=== PATIENT | male | born 1975 | race African-American/Black ===

== ENCOUNTER 2023-12-26 17:10 | Inpatient (IN) | payer MEDICAID, SELFPAY ==
[2023-12-26] VITALS (12 sets, daily range): BP systolic 90–170; BP diastolic 43–65; PULSE 95–134; RESP 14–27; TEMP 36.8–39.4; O2SAT 77–98; BMI 23.6
--- NOTE | ~2023-12-26 | XR_ITS ---
EXAMINATION: XR CHEST CLINICAL INFORMATION: Shortness of breath COMPARISON: None available. TECHNIQUE: Frontal view of the chest was obtained. FINDINGS: The cardiac silhouette does not appear enlarged. There are increased central bronchovascular markings and question more peripheral airspace disease or infiltrate silhouetting the right minor fissure probably in the right upper lobe. The lungs are otherwise clear. Probable small bilateral pleural effusions. No pneumothorax. Bony structures are unremarkable. XR/XR chest 1V IMPRESSION: Increased central bronchovascular markings and question right upper lobe airspace disease or infiltrate. Probable small bilateral pleural effusions. Differential would include atypical interstitial or viral pneumonia and mild CHF.
--- NOTE | ~2023-12-26 | CT_ITS ---
EXAMINATION: CTA CHEST PE STUDY CLINICAL INFORMATION: Reason for Exam hypoxia, tachycardia COMPARISON: No pertinent prior studies are available for comparison. TECHNIQUE: Prior to contrast administration, noncontrast localization images were obtained. After the administration of 50 mL of Omnipaque nonionic IV contrast, contiguous thin slice helical images were obtained through the thorax. Reformatted MIP images in the coronal and sagittal planes were obtained at the acquisition workstation. This CT examination was performed using dose optimization techniques as appropriate, variously including the following: *Automated exposure control *Adjustment of mA and/or kV according to patient size (this includes techniques or standardized protocols for targeted exams where dose is matched to indication/reason for exam; i.e. extremities or head) *Use of iterative reconstruction technique DLP: 367 mGy-cm. FINDINGS: The bolus timing on this study was acceptable for visualization of the pulmonary arterial tree. There are no intraluminal pulmonary arterial filling defects present to suggest central pulmonary embolism. Distal branch vessels are partially obscured by motion artifact. Dependent airspace changes more likely due to atelectasis. Background panlobular emphysematous change in the lung apices. No abnormal pulmonary nodules or masses are appreciated. No significant hilar or mediastinal adenopathy. Small bilateral pleural effusions. There is no evidence of pneumothorax. The heart is normal in size. No evidence of ventricular septal bowing or right heart strain. Great vessels are normal. Otherwise the mediastinum is unremarkable. There is no pericardial effusion or pericardial thickening. Limited evaluation of the upper abdominal viscera is unremarkable. CT/CT angio chest PE protocol IMPRESSION: 1. No evidence for central pulmonary emboli. 2. Dependent airspace changes more likely due to atelectasis. 3. VTE: Negative.
--- NOTE | 2023-12-26 17:19 | ECG_ITS ---
Test Reason : SEPTIC Blood Pressure : / mmHG Vent. Rate : 123 BPM Atrial Rate : 123 BPM P-R Int : 132 ms QRS Dur : 066 ms QT Int : 288 ms P-R-T Axes : 047 059 031 degrees QTc Int : 412 ms Sinus tachycardia Otherwise normal ECG No previous ECGs available Referred By: Generic ED Physician Electronically Signed By:Daniel Huddleston
--- NOTE | 2023-12-26 17:33 | ED_ITS ---
HPI - General Adult General Chief complaint: Fever Stated complaint: fever, diff breathing Time Seen by Provider: 12/26/23 17:33 Source: patient and EMS Mode of arrival: EMS History of Present Illness HPI narrative: 48-year-old male who presents via EMS from [facility] for shortness of breath/fever/cough and sore throat as well as headache for the past couple of days, EMS notes that patient was 77% on room air, patient reports last use of cocaine 1 week ago. Related Data Home Medications Medication Instructions Recorded Confirmed Colace 100 mg PO BID PRN Constipation 12/26/23 12/26/23 atorvastatin 20 mg PO BEDTIME 12/26/23 12/26/23 famotidine 20 mg PO DAILY 12/26/23 12/26/23 furosemide 20 mg PO DAILY 12/26/23 12/26/23 gabapentin 300 mg PO TID 12/26/23 12/26/23 hydroxyzine pamoate 50 mg PO TID PRN Anxiety 12/26/23 12/26/23 insulin glargine 37 units subcut BEDTIME 12/26/23 12/26/23 insulin lispro See Protocol subcut QIDACHS 12/26/23 12/26/23 melatonin 6 mg PO BEDTIME 12/26/23 12/26/23 nicotine (polacrilex) 2 mg PO Q2H PRN Nicotine Cravings 12/26/23 12/26/23 olanzapine 10 mg PO BEDTIME 12/26/23 12/26/23 olanzapine 10 mg PO DAILY 12/26/23 12/26/23 ondansetron 4 mg PO Q6H PRN Nausea And Vomiting 12/26/23 12/26/23 sertraline 50 mg PO DAILY 12/26/23 12/26/23 trazodone 100 mg PO BEDTIME PRN Insomnia 12/26/23 12/26/23 Allergies Allergy/AdvReac Type Severity Reaction Status Date / Time shellfish derived Allergy Unknown Verified 12/26/23 18:25 Review of Systems 2 Review of Systems: Pertinent positives and negatives as stated in HPI PMFSH Past Medical History Source: nursing notes reviewed Medical History Severe major depression with psychotic features H/O insulin dependent diabetes mellitus Social History Social History Smoked in Last 30 Days: No Use of substances other than those prescribed or required for medical reasons: Yes Substance Use Type: IV Drugs Last Used Substance: Weeks (ago) Advance Directives: No Advance Directives Information Provided: No Physical Exam ED Vital Signs: Vital Signs - 24 hr 12/26/23 17:22 12/26/23 18:44 12/26/23 19:02 Temperature 102.9 F H 102.1 F H Pulse Rate 126 H 120 H 114 H Respiratory Rate 24 H 18 27 H Blood Pressure 136/65 94/46 L 90/46 L Pulse Oximetry 95 96 Oxygen Delivery Method Nasal Cannula Nasal Cannula Oxygen Flow Rate 5 12/26/23 19:11 12/26/23 19:27 12/26/23 19:42 Temperature 101.8 F H Pulse Rate 114 H 109 H 106 H Respiratory Rate 17 16 25 H Blood Pressure 96/47 L 93/43 L 95/46 L Pulse Oximetry 96 94 94 Oxygen Delivery Method Nasal Cannula Room Air Oxymask Oxygen Flow Rate 5 12/26/23 20:40 12/26/23 20:43 12/26/23 21:03 Temperature 98.8 F Pulse Rate 101 H 104 H 99 Respiratory Rate 14 14 19 Blood Pressure 92/45 L 96/47 L 107/56 L Pulse Oximetry 98 98 96 Oxygen Delivery Method Oxymask Oxymask Oxygen Flow Rate 5 5 5 BMI result Body Mass Index 23.6 VITAL SIGNS: Reviewed. GENERAL: Well developed, well nourished, in no acute distress. HEAD: Normocephalic/atraumatic EYES: PERRLA, EOMI EARS: Ext canals without abnormality, TMs non-bulging and non-erythematous NOSE: Nares patent bilateral OROPHARYNX: no oral lesions noted, posterior pharynx clear and non-erythematous without noted tonsillar enlargement/erythema/exudates NECK: Supple, no adenopathy LUNGS: Good inspiratory effort, no expiratory wheeze/crackles. SpO2<95> on 5 L via nasal cannula CARDIOVASCULAR: Regular rate and rhythm without noted murmurs, no JVD bilateral lower extremity 1+ pitting edema to feet/ankles ABDOMEN: Soft, non-tender, non-distended with bowel sounds. MUSCULOSKELETAL: No tenderness, deformities, or effusions noted on gross inspection. EXTREMITIES: No cyanosis, clubbing or edema. SKIN: Inspection of the skin reveals no rashes, tactile fever NEUROLOGIC: Alert and oriented x 4. Strength and sensation to light touch were grossly intact x 4. Medications Administered Discontinued Medications Generic Name Dose Route Start Last Admin Trade Name Rosey PRN Reason Stop Dose Admin Acetaminophen 975 mg 12/26/23 17:33 12/26/23 17:43 Acetaminophen 325 Mg Tablet PO 12/26/23 17:34 975 mg ONCE ONE Administration Furosemide 40 mg 12/26/23 20:57 12/26/23 21:05 Furosemide 40 Mg/4 Ml Vial IVPUSH 12/26/23 20:58 40 mg ONCE ONE Administration Protocol Piperacillin Sod/Tazobactam 50 mls @ 100 mls/hr 12/26/23 18:39 12/26/23 19:41 Sod 3.375 gm/ Sodium Chloride IV 12/26/23 19:08 Infused ONCE ONE Infusion Sodium Chloride 1,000 mls @ 999 mls/hr 12/26/23 17:35 12/26/23 18:35 Ns IV 12/26/23 18:35 Infused .Q1H1M LOWELL Infusion Sodium Chloride 1,000 mls @ 999 mls/hr 12/26/23 19:00 12/26/23 20:44 Ns IV 12/26/23 20:00 Infused .Q1H1M LOWELL Infusion Ibuprofen 400 mg 12/26/23 17:45 12/26/23 17:56 Ibuprofen 400 Mg Tablet PO 12/26/23 17:46 400 mg ONCE ONE Administration Iohexol 65 ml 12/26/23 19:19 12/26/23 19:20 Iohexol 350 Mg/Ml 100 Ml Infus..Btl IV 12/26/23 19:20 65 ml ONCE ONE Administration Midodrine 10 mg 12/26/23 20:57 12/26/23 21:05 Midodrine Hcl 10 Mg Tablet PO 12/26/23 20:58 10 mg ONCE ONE Administration Medical Decision Making Medical Decision Making [facility] Narrative: 1733: Sepsis alert, DDX: Viral illness, pneumonia, UTI, no clinical suspicion for intra-abdominal or extremity infection 1754: Lactic acid 3.5, IV fluids, antibiotics, antipyretics, supplemental oxygen I reviewed all investigations and hematologic indices are significant for leukocytosis, patient has normocytic anemia with no clinical or historical evidence of bleeding and there is no thrombocytopenia. VBG does not demonstrate respiratory acidosis and there is no evidence of hypercapnia. Chemistry indices do not demonstrate an CIARRA and there is no electrolyte derangement. Patient has a lactic acidosis that when trended shows improvement after receiving fluids, BNP noted to be 772 so stopped administering any further IV fluids. UDS is negative and viral testing is negative for COVID-19/influenza. Patient remained persistently tachycardic and hypoxic with soft blood pressure and so proceeded with CT angio for PE protocol which was negative for VTE, both CT scan and chest x-ray significant for CHF and on CT scan there is demonstrated pneumonia. Patient received midodrine 10 mg as well as 40 mg of Lasix, case discussed with inpatient hospitalist who accepts admission. Differential Diagnosis Differential Diagnoses: The differential diagnosis associated with the presentation includes Please see the discussion above Admission/Observation Consideration of admission/observation: Escalation of care including admission/observation considered Please see the discussion above Consult Healthcare Provider Management of the patient was discussed with: Hospitalist Please see the discussion above Lab Data MDM Lab Attestation statement: I reviewed the patient's lab results. Please see the discussion above 12/26/23 17:28 12/26/23 17:28 Labs: Lab Results 12/26/23 12/26/23 12/26/23 Range/Units 17:28 19:46 20:36 WBC 14.5 H (4.8-10.8) X10*3/uL RBC 2.92 L (4.60-5.80) X10*6/uL Hgb 8.5 L (14.0-18.0) g/dl Hct 25.6 L (42.0-52.0) % MCV 87.7 (80.0-98.0) fL MCH 29.1 (27.0-33.0) pg MCHC 33.2 (31.0-36.0) g/dl RDW 16.0 (11.0-16.0) % Plt Count 394 (160-400) X10*3/uL MPV 8.4 L (9.4-12.4) fL Immature Gran % (Auto) 0.8 H (0.0-0.4) % Neut % (Auto) 68.2 (45-73) % Lymph % (Auto) 19.4 L (20-40) % Chambers % (Auto) 10.5 (2-11) % Eos % (Auto) 0.8 (0-4) % Baso % (Auto) 0.3 (0-2) % Lymph # (Auto) 2.8 (1.2-4.9) X10*3/uL Chambers # (Auto) 1.5 H (0.1-1.2) X10*3/uL Eos # (Auto) 0.1 (0.0-0.4) X10*3/uL Baso # (Auto) 0.1 (0.0-0.2) X10*3/uL Abs Immat Gran (auto) 0.11 H (0.00-0.03) X10*3/uL Absolute Neuts (auto) 9.9 H (2.0-8.3) x10*3/uL Absolute Nucleated RBC 0.070 H (0.0-0.012) X10*3/uL Nucleated RBC % (auto) 0.5 H (0.0-0.2) /100WBC Smear Tech's Comments VERIFIED VBG pH (7.32-7.43) VBG pCO2 mmHg VBG pO2 mmHg VBG HCO3 (22-26) mmol/L VBG O2 Saturation % VBG Base Excess mmol/L Sodium 138 (135-145) mmol/L Potassium 4.2 (3.3-5.1) mmol/L Chloride 100 (96-108) mmol/L Carbon Dioxide 28 (22-29) mmol/L Anion Gap 14 (12-20) BUN 15 (9-16) mg/dL Creatinine 0.88 (0.5-1.4) mg/dL Estim Creat Clear Calc 98.2 Estimated GFR > 60 POC Glucose 180 H (60-115) mg/dL Random Glucose 234 H (60-115) mg/dL Lactic Acid 3.5 H* (0.5-2.0) mmol/L Lactic Acid F/U @ 2Hr 2.4 H* (0.5-2.0) mmol/L Calcium 8.6 (8.4-10.2) mg/dL Total Bilirubin 0.2 (0.0-1.0) mg/dL AST 44 H (5-37) U/L ALT 37 (0-40) U/L Alkaline Phosphatase 142 H (39-117) U/L B-Natriuretic Peptide 772 H (<100) pg/mL Total Protein 6.6 (6.5-8.0) g/dL Albumin 2.8 L (3.5-5.0) g/dL Beta-Hydroxybutyrate 0.12 (0.02-0.27) mmol/L Urine Color Yellow Urine Appearance Clear Urine pH 7.5 (5.0-9.0) Ur Specific South Range >= 1.030 H (1.005-1.025) Urine Protein 100 (2+) H (Neg-Trace) mg/dL Urine Glucose (UA) 500 H (Negative) mg/dL Urine Ketones Trace (Negative) mg/dL Urine Blood Negative (Negative) Urine Nitrite Negative (Negative) Ur Leukocyte Esterase Negative (Negative) Urine RBC 0-2 (0-2) /HPF Urine WBC 6-10 H (0-5) /HPF Ur Squamous Epith Cells 0-2 (0-2) /HPF Urine Bacteria None Seen (None Seen) Hyaline Casts 0-2 (0-2) /LPF Urine Opiates Screen Not Detected (Not Detect) Urine Fentanyl Screen Not Detected (Not Detect) Ur Barbiturates Screen Not Detected (Not Detect) Ur Phencyclidine Scrn Not Detected (Not Detect) Ur Amphetamines Screen Not Detected (Not Detect) U Benzodiazepines Scrn Not Detected (Not Detect) Urine Cocaine Screen Not Detected (Not Detect) U Marijuana (THC) Screen Not Detected (Not Detect) COVID-19 (DEMI) Negative (Negative) COVID-19 Clin Com See Note Influenza Type A (LEONEL) Negative (Negative) Influenza Type B (LEONEL) Negative (Negative) Influenza A & B Note See Note 12/26/23 Range/Units 21:09 WBC (4.8-10.8) X10*3/uL RBC (4.60-5.80) X10*6/uL Hgb (14.0-18.0) g/dl Hct (42.0-52.0) % MCV (80.0-98.0) fL MCH (27.0-33.0) pg MCHC (31.0-36.0) g/dl RDW (11.0-16.0) % Plt Count (160-400) X10*3/uL MPV (9.4-12.4) fL Immature Gran % (Auto) (0.0-0.4) % Neut % (Auto) (45-73) % Lymph % (Auto) (20-40) % Chambers % (Auto) (2-11) % Eos % (Auto) (0-4) % Baso % (Auto) (0-2) % Lymph # (Auto) (1.2-4.9) X10*3/uL Chambers # (Auto) (0.1-1.2) X10*3/uL Eos # (Auto) (0.0-0.4) X10*3/uL Baso # (Auto) (0.0-0.2) X10*3/uL Abs Immat Gran (auto) (0.00-0.03) X10*3/uL Absolute Neuts (auto) (2.0-8.3) x10*3/uL Absolute Nucleated RBC (0.0-0.012) X10*3/uL Nucleated RBC % (auto) (0.0-0.2) /100WBC Smear Tech's Comments VBG pH 7.50 H (7.32-7.43) VBG pCO2 40 mmHg VBG pO2 149 mmHg VBG HCO3 31 H (22-26) mmol/L VBG O2 Saturation 100.0 % VBG Base Excess 7.8 mmol/L Sodium (135-145) mmol/L Potassium (3.3-5.1) mmol/L Chloride (96-108) mmol/L Carbon Dioxide (22-29) mmol/L Anion Gap (12-20) BUN (9-16) mg/dL Creatinine (0.5-1.4) mg/dL Estim Creat Clear Calc Estimated GFR POC Glucose (60-115) mg/dL Random Glucose (60-115) mg/dL Lactic Acid (0.5-2.0) mmol/L Lactic Acid F/U @ 2Hr (0.5-2.0) mmol/L Calcium (8.4-10.2) mg/dL Total Bilirubin (0.0-1.0) mg/dL AST (5-37) U/L ALT (0-40) U/L Alkaline Phosphatase (39-117) U/L B-Natriuretic Peptide (<100) pg/mL Total Protein (6.5-8.0) g/dL Albumin (3.5-5.0) g/dL Beta-Hydroxybutyrate (0.02-0.27) mmol/L Urine Color Urine Appearance Urine pH (5.0-9.0) Ur Specific South Range (1.005-1.025) Urine Protein (Neg-Trace) mg/dL Urine Glucose (UA) (Negative) mg/dL Urine Ketones (Negative) mg/dL Urine Blood (Negative) Urine Nitrite (Negative) Ur Leukocyte Esterase (Negative) Urine RBC (0-2) /HPF Urine WBC (0-5) /HPF Ur Squamous Epith Cells (0-2) /HPF Urine Bacteria (None Seen) Hyaline Casts (0-2) /LPF Urine Opiates Screen (Not Detect) Urine Fentanyl Screen (Not Detect) Ur Barbiturates Screen (Not Detect) Ur Phencyclidine Scrn (Not Detect) Ur Amphetamines Screen (Not Detect) U Benzodiazepines Scrn (Not Detect) Urine Cocaine Screen (Not Detect) U Marijuana (THC) Screen (Not Detect) COVID-19 (DEMI) (Negative) COVID-19 Clin Com Influenza Type A (LEONEL) (Negative) Influenza Type B (LEONEL) (Negative) Influenza A & B Note Independent Interpretation I performed an independent interpretation of an: EKG Interpretation: Sinus tachycardia, HR-123, no STEMI, KS/QRS/QTC is within normal limits. Radiology Impression Discussion of test interpretation with radiology: I have reviewed the radiologist's reading. Radiologist Impression: Please see the discussion above Chronic Conditions Patient?s care impacted by: Diabetes and Other Suicidal ideation, CHF Critical Care Time Critical Care Time Critical Care Time: Yes Total Critical Care Time: 90 Attestation: I personally attest to this time spent taking care of the patient. Discharge Plan Discharge Clinical Impression: CHF exacerbation, Acute hypoxic respiratory failure, Pneumonia, Bilateral pleural effusion Patient Disposition: Admitted As Inpatient Prescriptions: No Action atorvastatin 20 mg 20 mg PO BEDTIME famotidine 20 mg 20 mg PO DAILY furosemide 20 mg 20 mg PO DAILY gabapentin 300 mg 300 mg PO TID insulin glargine 37 unit 37 units subcut BEDTIME insulin lispro 100 units/ml auto-injector See Protocol subcut QIDACHS Protocol: Insulin Correction Scale Less than or equal to 110 ---- Give (units): 0 111 to 150 Give (units): 0 151 to 200 Give (units): 2 201 to 250 Give (units): 4 251 to 300 Give (units): 6 301 to 350 Give (units): 8 Greater than 350 Give (units): 10 Call MD if Blood Glucose > : 350 olanzapine 10 mg tablet 10 mg PO DAILY olanzapine 10 mg tablet 10 mg PO BEDTIME sertraline 50 mg tablet 50 mg PO DAILY Colace 100 mg capsule 100 mg PO BID PRN (Reason: Constipation) hydroxyzine pamoate 50 mg capsule 50 mg PO TID PRN (Reason: Anxiety) melatonin 6 mg tablet 6 mg PO BEDTIME nicotine (polacrilex) 2 mg gum 2 mg PO Q2H PRN (Reason: Nicotine Cravings) ondansetron 4 mg tablet 4 mg PO Q6H PRN (Reason: Nausea And Vomiting) trazodone 100 mg tablet 100 mg PO BEDTIME PRN (Reason: Insomnia)
[2023-12-26 17:34] LABS: Basophils Absolute Auto 0.1 X10*3/uL (0.0-0.2); Basophils Percent Auto 0.3 % (0-2); Eosinophils Absolute Auto 0.1 X10*3/uL (0.0-0.4); Eosinophils Percent Auto 0.8 % (0-4); Hematocrit 25.6 % (42.0-52.0); Hemoglobin 8.5 g/dl (14.0-18.0); Imm Gran Abs Auto 0.11 X10*3/uL (0.00-0.03); Imm Gran Pct Auto 0.8 % (0.0-0.4); Lymphocytes Absolute Auto 2.8 X10*3/uL (1.2-4.9); Lymphocytes Percent Auto 19.4 % (20-40); MANUAL DIFF FLAG SCAN; Mean Corpuscular HGB Conc 33.2 g/dl (31.0-36.0); Mean Corpuscular Hemoglobin 29.1 pg (27.0-33.0); Mean Corpuscular Volume 87.7 fL (80.0-98.0); Mean Platelet Volume 8.4 fL (9.4-12.4); Monocytes Absolute Auto 1.5 X10*3/uL (0.1-1.2); Monocytes Percent Auto 10.5 % (2-11); NRBC Pct Auto 0.5 /100WBC (0.0-0.2); Neutrophils Absolute Auto 9.9 x10*3/uL (2.0-8.3); Neutrophils Percent Auto 68.2 % (45-73); Platelet Count 394 X10*3/uL (160-400); Red Blood Count 2.92 X10*6/uL (4.60-5.80); SCAN SMEAR FLAG 1; White Blood Count 14.5 X10*3/uL (4.8-10.8)
[2023-12-26] MEDS: 0.9 % Sodium Chloride 1,000 ML 999 ML IV ×2 (17:35→19:35)
[2023-12-26] MEDS: Acetaminophen 325 MG TABLET 975 MG PO (17:43)
[2023-12-26 17:48] LABS: Alanine Aminotransferase 37 U/L (0-40); Albumin Level 2.8 g/dL (3.5-5.0); Alkaline Phosphatase 142 U/L (39-117); Anion Gap 14 (12-20); Aspartate Amino Transferase 44 U/L (5-37); Bilirubin Total 0.2 mg/dL (0.0-1.0); Blood Urea Nitrogen 15 mg/dL (9-16); Calcium 8.6 mg/dL (8.4-10.2); Carbon Dioxide 28 mmol/L (22-29); Chloride 100 mmol/L (96-108); Creatinine Clr Calc Pharmacy 98.2; Estimated Glomerular Filt Rate > 60; Glucose Random 234 mg/dL (60-115); Potassium 4.2 mmol/L (3.3-5.1); Sodium 138 mmol/L (135-145); Total Protein 6.6 g/dL (6.5-8.0)
[2023-12-26 17:54] LABS: Lactic Acid 3.5 mmol/L (0.5-2.0)
[2023-12-26] MEDS: Ibuprofen 400 MG TABLET PO (17:56)
[2023-12-26 18:04] LABS: SLIDE REVIEW VERIFIED
[2023-12-26 18:07] LABS: IDNOW Serial# 152EDE1D; Influenza A Negative (Negative); Influenza B2 Negative (Negative)
[2023-12-26 18:08] LABS: COVID-19 Test Negative (Negative); IDNOW Serial# 08D9AD1C
[2023-12-26] MEDS: Piperacillin Sodium/Tazobactam 3.375 GM in 0.9 % Sodium Chloride 50 ML IV (18:47)
--- NOTE | 2023-12-26 19:00 | PC.NURSE ---
ARRIVES FROM [facility] ON SEC 12B AND 10B, HAS BEEN THERE FOR 1 WK FOR SI, MAJOR DEPRESSIVE EPISODE AND LISY USE. PT HYPOXIC WITH EMS AT 77%, UNABLE TO MAINTAIN SPO2>93% WITHOUT 5L SUPPLEMENTAL O2. PT ABLE TO SPEAK IN CLEAR FULL SENTENCES, DENIES CP. PT FEBRILE, TACHYCARDIC, TACHYPNEIC, SEPSIS PROTOCOL INITIATED ON ARRIVAL, #20 IN RAC. HAS NOT YET PROVIDED URINE SPECIMEN, BLADDER SCAN TO BE COMPLETED. BPS HAVE BECOME SOFT, AWARE. SITTER AT BEDSIDE PER FACILITY PROTOCOL.
[2023-12-26 19:20] LABS: Beta-Hydroxybutyrate 0.12 mmol/L (0.02-0.27)
[2023-12-26] MEDS: iohexoL 350 MG/ML 100 ML INFUS..BTL 65 ML IV (19:20)
[2023-12-26 19:32] LABS: Reflex Lactate? Lactic Acid Added
--- NOTE | 2023-12-26 19:43 | PC.NURSE ---
Dr. Holder aware of vitals & temp. ivf infusing. pressure bag on fluids and oxy mask on 5L per Dr. Holder. sitter at bedside. almita baum obtaining 2nd lactic now. ua sent to lab.
[2023-12-26 19:56] LABS: Appearance Urine Clear; Color Urine Yellow; Glucose Urine UA 500 mg/dL (Negative); Leukocyte Esterase Urine Negative (Negative); Nitrite Urine Negative (Negative); PH 7.5 (5.0-9.0); Specific Gravity - Urine >= 1.030 (1.005-1.025); UMIC TRIGGER UACC YES; Urine Blood Negative (Negative); Urine Ketones Trace mg/dL (Negative); Urine Protein 100 (2+) mg/dL (Neg-Trace)
[2023-12-26 19:58] LABS: Bacteria Urine None Seen (None Seen); Hyaline Casts Urine 0-2 /LPF (0-2); RBC Urine 0-2 /HPF (0-2); Squamous Epithelial Cell Urine 0-2 /HPF (0-2); UACC Culture Trigger YES
[2023-12-26 20:01] LABS: Amphetamine Screen Urine Not Detected (Not Detect); Barbiturates, Urine Not Detected (Not Detect); Benzodiazepines Screen Urine Not Detected (Not Detect); Cannabinoid Screen Urine Not Detected (Not Detect); Cocaine Screen Urine Not Detected (Not Detect); Fentanyl, urine Not Detected (Not Detect); Opiate Screen Urine Not Detected (Not Detect); Phencyclidine Screen Urine Not Detected (Not Detect)
[2023-12-26 20:10] LABS: ~Lactic Acid-LAB USE ONLY 2.4 mmol/L (0.5-2.0)
[2023-12-26 20:13] LABS: B Type Natriuretic Peptide 772 pg/mL (<100)
[2023-12-26 20:39] LABS: Glucose, Whole Blood 180 mg/dL (60-115)
--- NOTE | 2023-12-26 20:44 | PC.NURSE ---
pt appears lethargic and diaphoretic. poc 180. temp 99.7F. 99/48 BP. aroused to shaking axox4 now. pt reports feeling extremely tired and dizzy. IVF stopped after [address] Holder. pt repositioned in trendelenberg position. vitals as documented. Dr. Holder aware no new orders at this time.
--- NOTE | 2023-12-26 21:03 | PC.NURSE ---
per MD Holder OK to give 40mg lasix iv with soft BPs. most recent BP 107/56. administering 10mg midodrine po as well. continuos monitoring of BP in place. plan of care ongoing
[2023-12-26] MEDS: Furosemide 40 MG/4 ML VIAL IVPUSH (21:05)
[2023-12-26] MEDS: Midodrine HCl 10 MG TABLET PO (21:05)
[2023-12-26 21:14] LABS: Venous Blood Gas Refer to POC result
[2023-12-26 21:15] LABS: VBG Base Excess 7.8 mmol/L; VBG HCO3 31 mmol/L (22-26); VBG pCO2 40 mmHg; VBG pO2 149 mmHg
[2023-12-26 21:51] LABS: Reflex Lactate? 2 Y
--- NOTE | 2023-12-26 22:19 | PM.IMHP ---
History of Present Illness Date of Service: 12/26/23 Chief Complaint: Cough, fever This is a 48-year-old male with pertinent history of mood disorder, congestive heart failure unspecified EF, insulin-dependent diabetes mellitus with neuropathy, mixed hyperlipidemia who presents to the emergency department from [facility] for evaluation of fever, productive cough and dyspnea. Patient was residing at [facility] for suicidal ideation. Patient does not know when his symptoms started but states he has been having productive cough with yellowish sputum production. Also has been having associated fevers and chills. Admits dyspnea and endorses orthopnea. No chest discomfort, palpitations, abdominal pain, changes in urinary or bowel habits. He was found to be hypoxemic as per EMS and placed on supplemental oxygen. In the emergency department, patient was found to be septic and requiring 5 L supplemental oxygen. BNP found to be elevated Review of Systems Constitutional: Constitutional: Reports chills, Reports fatigue, Reports fever(s) and Reports lethargy Cardiovascular: Cardiovascular: Reports dyspnea on exertion and Reports orthopnea Respiratory: Respiratory: Reports dyspnea on exertion Gastrointestinal: Gastrointestinal: Reports no additional gastrointestinal complaints Genitourinary: Genitourinary: Reports no additional male genitourinary complaints Endocrine: Endocrine: Reports fatigue PMFSH Medical History Severe major depression with psychotic features H/O insulin dependent diabetes mellitus Pertinent family history: No family history of early CAD Social History Smoked in Last 30 Days: No Use of substances other than those prescribed or required for medical reasons: Yes Substance Use Type: IV Drugs Last Used Substance: Weeks (ago) Advance Directives: No Advance Directives Information Provided: No Meds Allergies Allergy/AdvReac Type Severity Reaction Status Date / Time shellfish derived Allergy Unknown Verified 12/26/23 18:25 Active Medications: Current Medications Dextrose (Dextrose 50 % 25 Gm/50 Ml Syringe) 25 gm IVPUSH Q15M PRN; Protocol PRN Reason: per Hypoglycemia Standing Ord. Enoxaparin Sodium (Enoxaparin Sodium 40 Mg/0.4 Ml Syringe) 40 mg SUBCUT Q24H [place] Glucose (Glucose Gel 15 Gm Gel..Gram.) 15 gm PO Q15M PRN; Protocol PRN Reason: per Hypoglycemia Standing Ord. Insulin Human Lispro (Insulin Lispro 100 Unit/Ml 3 Ml Vial) 0 unit SUBCUT QIDACHS [facility]; Protocol Home Medications Medication Instructions Recorded Confirmed Last Taken Type Colace 100 mg PO BID PRN Constipation 12/26/23 12/26/23 Unknown History atorvastatin 20 mg PO BEDTIME 12/26/23 12/26/23 Unknown History famotidine 20 mg PO DAILY 12/26/23 12/26/23 Unknown History furosemide 20 mg PO DAILY 12/26/23 12/26/23 Unknown History gabapentin 300 mg PO TID 12/26/23 12/26/23 Unknown History hydroxyzine pamoate 50 mg PO TID PRN Anxiety 12/26/23 12/26/23 Unknown History insulin glargine 37 units subcut BEDTIME 12/26/23 12/26/23 Unknown History insulin lispro See Protocol subcut QIDACHS 12/26/23 12/26/23 Unknown History melatonin 6 mg PO BEDTIME 12/26/23 12/26/23 Unknown History nicotine (polacrilex) 2 mg PO Q2H PRN Nicotine Cravings 12/26/23 12/26/23 Unknown History olanzapine 10 mg PO BEDTIME 12/26/23 12/26/23 Unknown History olanzapine 10 mg PO DAILY 12/26/23 12/26/23 Unknown History ondansetron 4 mg PO Q6H PRN Nausea And Vomiting 12/26/23 12/26/23 Unknown History sertraline 50 mg PO DAILY 12/26/23 12/26/23 Unknown History trazodone 100 mg PO BEDTIME PRN Insomnia 12/26/23 12/26/23 Unknown History Physical Exam Vital Signs and Narrative: Vital Signs: Last Vital Signs Temp 98.3 F 12/26/23 21:53 Pulse 95 12/26/23 22:15 Resp 21 H 12/26/23 22:15 BP 107/56 L 12/26/23 22:15 Pulse Ox 95 12/26/23 22:15 O2 Del Method Oxymask 12/26/23 22:15 O2 Flow Rate 5 12/26/23 22:15 Oxygen Flow Rate 5 12/26/23 17:22 BMI result Body Mass Index 23.6 Middle-aged male lying in bed in mild distress on supplemental oxygen Neck supple Regular rate and rhythm, S1-S2 heard Bilateral crackles without wheezing Abdomen soft nontender, no guarding, no rigidity Patient is awake, alert and oriented to self, place, time and person ; no focal motor deficit Psych: Normal mood Bilateral pedal edema Results Labs 12/26/23 17:28 12/26/23 17:28 Labs: Laboratory Results - last 24 hr 12/26/23 12/26/23 12/26/23 17:28 19:46 20:36 MCV 87.7 MCH 29.1 MCHC 33.2 RDW 16.0 Plt Count 394 MPV 8.4 L Immature Gran % (Auto) 0.8 H Neut % (Auto) 68.2 Lymph % (Auto) 19.4 L [place] % (Auto) 10.5 Eos % (Auto) 0.8 Baso % (Auto) 0.3 Lymph # (Auto) 2.8 [place] # (Auto) 1.5 H Eos # (Auto) 0.1 Baso # (Auto) 0.1 Abs Immat Gran (auto) 0.11 H Absolute Neuts (auto) 9.9 H Absolute Nucleated RBC 0.070 H Nucleated RBC % (auto) 0.5 H Smear Tech's Comments VERIFIED VBG pH VBG pCO2 VBG pO2 VBG HCO3 VBG O2 Saturation VBG Base Excess Anion Gap 14 Estim Creat Clear Calc 98.2 Estimated GFR > 60 POC Glucose 180 H Random Glucose 234 H Lactic Acid 3.5 H* Lactic Acid F/U @ 2Hr 2.4 H* Calcium 8.6 Total Bilirubin 0.2 AST 44 H ALT 37 Alkaline Phosphatase 142 H B-Natriuretic Peptide 772 H Total Protein 6.6 Albumin 2.8 L Beta-Hydroxybutyrate 0.12 Urine Color Yellow Urine Appearance Clear Urine pH 7.5 Ur Specific [place] >= 1.030 H Urine Protein 100 (2+) H Urine Glucose (UA) 500 H Urine Ketones Trace Urine Blood Negative Urine Nitrite Negative Ur Leukocyte Esterase Negative Urine RBC 0-2 Urine WBC 6-10 H Ur Squamous Epith Cells 0-2 Urine Bacteria None Seen Hyaline Casts 0-2 Urine Opiates Screen Not Detected Urine Fentanyl Screen Not Detected Ur Barbiturates Screen Not Detected Ur Phencyclidine Scrn Not Detected Ur Amphetamines Screen Not Detected U Benzodiazepines Scrn Not Detected Urine Cocaine Screen Not Detected U Marijuana (THC) Screen Not Detected COVID-19 (DEMI) Negative COVID-19 Clin Com See Note Influenza Type A (LEONEL) Negative Influenza Type B (LEONEL) Negative Influenza A & B Note See Note 12/26/23 21:09 MCV MCH MCHC RDW Plt Count MPV Immature Gran % (Auto) Neut % (Auto) Lymph % (Auto) [place] % (Auto) Eos % (Auto) Baso % (Auto) Lymph # (Auto) [place] # (Auto) Eos # (Auto) Baso # (Auto) Abs Immat Gran (auto) Absolute Neuts (auto) Absolute Nucleated RBC Nucleated RBC % (auto) Smear Tech's Comments VBG pH 7.50 H VBG pCO2 40 VBG pO2 149 VBG HCO3 31 H VBG O2 Saturation 100.0 VBG Base Excess 7.8 Anion Gap Estim Creat Clear Calc Estimated GFR POC Glucose Random Glucose Lactic Acid Lactic Acid F/U @ 2Hr Calcium Total Bilirubin AST ALT Alkaline Phosphatase B-Natriuretic Peptide Total Protein Albumin Beta-Hydroxybutyrate Urine Color Urine Appearance Urine pH Ur Specific [place] Urine Protein Urine Glucose (UA) Urine Ketones Urine Blood Urine Nitrite Ur Leukocyte Esterase Urine RBC Urine WBC Ur Squamous Epith Cells Urine Bacteria Hyaline Casts Urine Opiates Screen Urine Fentanyl Screen Ur Barbiturates Screen Ur Phencyclidine Scrn Ur Amphetamines Screen U Benzodiazepines Scrn Urine Cocaine Screen U Marijuana (THC) Screen COVID-19 (DEMI) COVID-19 Clin Com Influenza Type A (LEONEL) Influenza Type B (LEONEL) Influenza A & B Note Imaging Radiologist's Impressions: Impressions Chest X-Ray 12/26/23 17:50 IMPRESSION: Increased central bronchovascular markings and question right upper lobe airspace disease or infiltrate. Probable small bilateral pleural effusions. Differential would include atypical interstitial or viral pneumonia and mild CHF. Chest CTA 12/26/23 19:33 IMPRESSION: 1. No evidence for central pulmonary emboli. 2. Dependent airspace changes more likely due to atelectasis. 3. VTE: Negative. Assessment and Plan (1) Acute hypoxic respiratory failure: Status: Acute (2) CHF exacerbation: Status: Acute (3) Pneumonia: Status: Acute Plan This is a 48-year-old male with pertinent history of mood disorder, congestive heart failure unspecified EF, insulin-dependent diabetes mellitus with neuropathy, mixed hyperlipidemia who presents to the emergency department from [facility] for evaluation of fever, productive cough and dyspnea #. Acute hypoxemic respiratory failure and Sepsis due to community-acquired pneumonia: Resuscitated with IV crystalloids. Initiating empiric IV antibiotics. Sputum culture and blood culture pending. Obtained lactic acid #. Acute lactic acidosis due to sepsis #. Acute on chronic congestive heart failure, unspecified EF: Initiating IV diuresis. Strict I's and O's. Low-salt diet. Obtaining transthoracic echocardiogram #. Normocytic anemia: Hemoglobin above transfusion threshold #. Insulin-dependent diabetes mellitus with hyperglycemia: Initiating Accu-Cheks with sliding scale insulin #. Mood disorder: Continue home mood stabilizers #. Suicidal ideation: Consulted sitter and Psychiatry #. Mixed hyperlipidemia: On statin Med rec pending DVT prophylaxis: Lovenox Full code Admit as inpatient and will require two night minimum hospital stay for supplemental oxygen, IV antibiotics, IV diuresis with hemodynamic monitoring (as above), which is not possible in a lesser acute setting. Quality Stroke Does the patient have a stroke diagnosis?: No VTE Prior VTE?: No VTE Risk Level:: Medical - moderate - high VTE Device Contraindication: Treatment Not Indicated VTE Drug Contraindication: N/A - Med Ordered
[2023-12-26 22:21] LABS: ~Lactic Acid-LAB USE ONLY 1.5 mmol/L (0.5-2.0)
[2023-12-26] MEDS: Insulin Glargine,Hum.rec.anlog 100 UNIT/ML 10 ML VIAL 30 UNIT SUBCUT (23:16)
[2023-12-26] MEDS: cefTRIAXone sodium 1 GM in 0.9 % Sodium Chloride 50 ML IV (23:16)
[2023-12-26] MEDS: Enoxaparin Sodium 40 MG/0.4 ML SYRINGE SUBCUT (23:17)
[2023-12-27] MEDS: Azithromycin 500 MG in 0.9 % Sodium Chloride 250 ML 125 MG IV ×2 (00:13→23:44)
[2023-12-27] MEDS: 0.9 % Sodium Chloride Flush 3 ML SYRINGE IVFLUSH ×2 (00:13→23:47)
[2023-12-27 01:06] VITALS: PULSE 98; RESP 20; O2SAT 100
[2023-12-27 02:40] LABS: Glucose, Whole Blood 326 mg/dL (60-115)
[2023-12-27 05:26] LABS: MANUAL DIFF FLAG NO
[2023-12-27 05:29] LABS: Basophils Absolute Auto 0.1 X10*3/uL (0.0-0.2); Basophils Percent Auto 0.5 % (0-2); Eosinophils Absolute Auto 0.2 X10*3/uL (0.0-0.4); Eosinophils Percent Auto 1.7 % (0-4); Hematocrit 24.8 % (42.0-52.0); Hemoglobin 8.2 g/dl (14.0-18.0); Imm Gran Abs Auto 0.07 X10*3/uL (0.00-0.03); Imm Gran Pct Auto 0.6 % (0.0-0.4); Lymphocytes Absolute Auto 2.3 X10*3/uL (1.2-4.9); Lymphocytes Percent Auto 17.8 % (20-40); Mean Corpuscular HGB Conc 33.1 g/dl (31.0-36.0); Mean Corpuscular Volume 87.6 fL (80.0-98.0); Mean Platelet Volume 8.7 fL (9.4-12.4); Monocytes Absolute Auto 1.3 X10*3/uL (0.1-1.2); Monocytes Percent Auto 10.4 % (2-11); NRBC Pct Auto 0.2 /100WBC (0.0-0.2); Neutrophils Absolute Auto 8.8 x10*3/uL (2.0-8.3); Platelet Count 382 X10*3/uL (160-400); Red Blood Count 2.83 X10*6/uL (4.60-5.80); White Blood Count 12.7 X10*3/uL (4.8-10.8)
[2023-12-27 05:44] LABS: Anion Gap 11 (12-20); Blood Urea Nitrogen 19 mg/dL (9-16); Carbon Dioxide 28 mmol/L (22-29); Chloride 103 mmol/L (96-108); Creatinine Clr Calc Pharmacy 91.9; Estimated Glomerular Filt Rate > 60; Glucose Random 315 mg/dL (60-115); Sodium 138 mmol/L (135-145)
[2023-12-27 07:56] LABS: Glucose, Whole Blood 252 mg/dL (60-115)
[2023-12-27] MEDS: Insulin Lispro 100 UNIT/ML 3 ML VIAL SUBCUT ×2 (08:05→13:30)
[2023-12-27] MEDS: Furosemide 40 MG/4 ML VIAL IVPUSH (08:06)
--- NOTE | 2023-12-27 09:23 | P.PNIM_ITS ---
Subjective Subjective Date of Service: 12/27/23 Interval History: Being followed for acute congestive heart failure Patient denies cough, no sputum production, no fevers, no chills shortness of breath improved, provide history of orthopnea and leg edema. Review of Systems All other system reviewed and negative. Physical Exam 2 Vital Signs: Vital Signs: Last Vital Signs Temp 98.3 F 12/26/23 21:53 Pulse 98 12/27/23 01:06 Resp 20 12/27/23 01:06 BP 107/56 L 12/26/23 22:15 Pulse Ox 100 12/27/23 01:06 O2 Del Method Nasal Cannula 12/27/23 01:06 O2 Flow Rate 5 12/27/23 01:06 Oxygen Flow Rate 5 12/26/23 17:22 BMI result Body Mass Index 23.6 Const: Other: General awake alert x3, resting comfortably in no acute distress. Neck supple no JVD. CVS regular rate rhythm, Respiratory lungs bibasilar crackles, no respiratory distress Gastrointestinal abdomen soft, nontender, bowel sounds audible, no guarding , no rigidity. Extremities lower extremity edema. Neuro nonfocal Skin no rash Objective Data Active Medications Acetaminophen (Acetaminophen 325 Mg Tablet) 650 mg PO Q6H PRN PRN Reason: Pain, Mild (Pain Scale 1-3) Dextrose (Dextrose 50 % 25 Gm/50 Ml Syringe) 25 gm IVPUSH Q15M PRN; Protocol PRN Reason: per Hypoglycemia Standing Ord. Enoxaparin Sodium (Enoxaparin Sodium 40 Mg/0.4 Ml Syringe) 40 mg SUBCUT Q24H [facility] Last Admin: 12/26/23 23:17 Dose: 40 mg Documented By: BRIDGET Furosemide (Furosemide 40 Mg/4 Ml Vial) 40 mg IVPUSH DAILY [facility]; Protocol Last Admin: 12/27/23 08:06 Dose: 40 mg Documented By: JULES Glucose (Glucose Gel 15 Gm Gel..Gram.) 15 gm PO Q15M PRN; Protocol PRN Reason: per Hypoglycemia Standing Ord. Ceftriaxone Sodium 1 gm/ (Sodium Chloride) 50 mls @ 100 mls/hr IV Q24H [facility] Last Infusion: 12/27/23 00:12 Dose: Infused Documented By: HUGH Azithromycin 500 mg/ Sodium (Chloride) 250 mls @ 125 mls/hr IV Q24H [facility] Last Infusion: 12/27/23 02:13 Dose: Infused Documented By: HUGH Insulin Human Lispro (Insulin Lispro 100 Unit/Ml 3 Ml Vial) 0 unit SUBCUT QIDACHS [facility]; Protocol Last Admin: 12/27/23 08:05 Dose: 6 unit Documented By: JULES Melatonin (Melatonin 3 Mg Tablet) 6 mg PO BEDTIME PRN PRN Reason: Insomnia Ondansetron HCl (Ondansetron Hcl 4 Mg/2 Ml Vial) 4 mg IVPUSH Q8H PRN PRN Reason: Nausea and Vomiting Sodium Chloride (0.9 % Sodium Chloride Flush 3 Ml Syringe) 3 ml IVFLUSH QSHIFT [facility] Last Admin: 12/27/23 08:19 Dose: Not Given Documented By: JULES Non-Admin Reason: Med Not Available Labs 12/27/23 05:07 12/27/23 05:07 Labs: Laboratory Results - last 24 hr 12/26/23 12/26/23 12/26/23 17:28 19:46 20:36 MCV 87.7 MCH 29.1 MCHC 33.2 RDW 16.0 Plt Count 394 MPV 8.4 L Immature Gran % (Auto) 0.8 H Neut % (Auto) 68.2 Lymph % (Auto) 19.4 L [place] % (Auto) 10.5 Eos % (Auto) 0.8 Baso % (Auto) 0.3 Lymph # (Auto) 2.8 [place] # (Auto) 1.5 H Eos # (Auto) 0.1 Baso # (Auto) 0.1 Abs Immat Gran (auto) 0.11 H Absolute Neuts (auto) 9.9 H Absolute Nucleated RBC 0.070 H Nucleated RBC % (auto) 0.5 H Smear Tech's Comments VERIFIED VBG pH VBG pCO2 VBG pO2 VBG HCO3 VBG O2 Saturation VBG Base Excess Anion Gap 14 Estim Creat Clear Calc 98.2 Estimated GFR > 60 POC Glucose 180 H Random Glucose 234 H Lactic Acid 3.5 H* Lactic Acid F/U @ 2Hr 2.4 H* Lactic Acid F/U @ 4Hr Calcium 8.6 Total Bilirubin 0.2 AST 44 H ALT 37 Alkaline Phosphatase 142 H B-Natriuretic Peptide 772 H Total Protein 6.6 Albumin 2.8 L Beta-Hydroxybutyrate 0.12 Urine Color Yellow Urine Appearance Clear Urine pH 7.5 Ur Specific [place] >= 1.030 H Urine Protein 100 (2+) H Urine Glucose (UA) 500 H Urine Ketones Trace Urine Blood Negative Urine Nitrite Negative Ur Leukocyte Esterase Negative Urine RBC 0-2 Urine WBC 6-10 H Ur Squamous Epith Cells 0-2 Urine Bacteria None Seen Hyaline Casts 0-2 Urine Opiates Screen Not Detected Urine Fentanyl Screen Not Detected Ur Barbiturates Screen Not Detected Ur Phencyclidine Scrn Not Detected Ur Amphetamines Screen Not Detected U Benzodiazepines Scrn Not Detected Urine Cocaine Screen Not Detected U Marijuana (THC) Screen Not Detected COVID-19 (DEMI) Negative COVID-19 Clin Com See Note Influenza Type A (LEONEL) Negative Influenza Type B (LEONEL) Negative Influenza A & B Note See Note 12/26/23 12/26/23 12/26/23 21:09 22:04 23:21 MCV MCH MCHC RDW Plt Count MPV Immature Gran % (Auto) Neut % (Auto) Lymph % (Auto) [place] % (Auto) Eos % (Auto) Baso % (Auto) Lymph # (Auto) [place] # (Auto) Eos # (Auto) Baso # (Auto) Abs Immat Gran (auto) Absolute Neuts (auto) Absolute Nucleated RBC Nucleated RBC % (auto) Smear Tech's Comments VBG pH 7.50 H VBG pCO2 40 VBG pO2 149 VBG HCO3 31 H VBG O2 Saturation 100.0 VBG Base Excess 7.8 Anion Gap Estim Creat Clear Calc Estimated GFR POC Glucose 326 H Random Glucose Lactic Acid Lactic Acid F/U @ 2Hr Lactic Acid F/U @ 4Hr 1.5 Calcium Total Bilirubin AST ALT Alkaline Phosphatase B-Natriuretic Peptide Total Protein Albumin Beta-Hydroxybutyrate Urine Color Urine Appearance Urine pH Ur Specific [place] Urine Protein Urine Glucose (UA) Urine Ketones Urine Blood Urine Nitrite Ur Leukocyte Esterase Urine RBC Urine WBC Ur Squamous Epith Cells Urine Bacteria Hyaline Casts Urine Opiates Screen Urine Fentanyl Screen Ur Barbiturates Screen Ur Phencyclidine Scrn Ur Amphetamines Screen U Benzodiazepines Scrn Urine Cocaine Screen U Marijuana (THC) Screen COVID-19 (DEMI) COVID-19 Clin Com Influenza Type A (LEONEL) Influenza Type B (LEONEL) Influenza A & B Note 12/27/23 12/27/23 05:07 07:52 MCV 87.6 MCH 29.0 MCHC 33.1 RDW 16.0 Plt Count 382 MPV 8.7 L Immature Gran % (Auto) 0.6 H Neut % (Auto) 69.0 Lymph % (Auto) 17.8 L [place] % (Auto) 10.4 Eos % (Auto) 1.7 Baso % (Auto) 0.5 Lymph # (Auto) 2.3 [place] # (Auto) 1.3 H Eos # (Auto) 0.2 Baso # (Auto) 0.1 Abs Immat Gran (auto) 0.07 H Absolute Neuts (auto) 8.8 H Absolute Nucleated RBC 0.020 H Nucleated RBC % (auto) 0.2 Smear Tech's Comments VBG pH VBG pCO2 VBG pO2 VBG HCO3 VBG O2 Saturation VBG Base Excess Anion Gap 11 L Estim Creat Clear Calc 91.9 Estimated GFR > 60 POC Glucose 252 H Random Glucose 315 H Lactic Acid Lactic Acid F/U @ 2Hr Lactic Acid F/U @ 4Hr Calcium 8.0 L D Total Bilirubin AST ALT Alkaline Phosphatase B-Natriuretic Peptide Total Protein Albumin Beta-Hydroxybutyrate Urine Color Urine Appearance Urine pH Ur Specific [place] Urine Protein Urine Glucose (UA) Urine Ketones Urine Blood Urine Nitrite Ur Leukocyte Esterase Urine RBC Urine WBC Ur Squamous Epith Cells Urine Bacteria Hyaline Casts Urine Opiates Screen Urine Fentanyl Screen Ur Barbiturates Screen Ur Phencyclidine Scrn Ur Amphetamines Screen U Benzodiazepines Scrn Urine Cocaine Screen U Marijuana (THC) Screen COVID-19 (DEMI) COVID-19 Clin Com Influenza Type A (LEONEL) Influenza Type B (LEONEL) Influenza A & B Note Assessment and Plan (1) Bilateral pleural effusion: Status: Acute (2) Pneumonia: Status: Acute (3) Acute hypoxic respiratory failure: Status: Acute (4) CHF exacerbation: Status: Acute Plan 48-year-old male with pertinent history of mood disorder, congestive heart failure unspecified EF, insulin-dependent diabetes mellitus with neuropathy, mixed hyperlipidemia who presents to the emergency department from [facility] for evaluation of fever, productive cough and dyspnea #. Acute hypoxemic respiratory failure and Sepsis due to community-acquired pneumonia/chf: On admission noted to have high-grade fever, tachycardia, tachypnea and lactic acidosis 3.5 Chest x-ray showed mild CHF/right upper lobe airspace disease Continue IV ceftriaxone and IV azithromycin day 2 follow blood cultures, WBC trending down, clinically improved #. Acute lactic acidosis due to sepsis resolved #. Acute on chronic congestive heart failure, unspecified EF: Clinically improved, BNP 772 on admission, continue IV Lasix follow echocardiogram/BMP and BNP/strict I's and O's #. Normocytic anemia: Hemoglobin above transfusion threshold. #. Insulin-dependent diabetes mellitus with hyperglycemia: Will resume Lantus 30 units at bedtime home dose 37 units, continue insulin sliding scale diabetic diet and monitor point of care #. Mood disorder: Will resume home medications #. Suicidal ideation: Consulted sitter and Psychiatry #. Mixed hyperlipidemia: Resume Lipitor DVT prophylaxis: Lovenox Full code Patient will require continued inpatient hospitalization for acute CHF treatment and close cardiac monitoring and expert consultation. Quality Stroke Does the patient have a stroke diagnosis?: No VTE Prior VTE?: No VTE Risk Level:: Medical - moderate - high VTE Device Contraindication: Treatment Not Indicated VTE Drug Contraindication: N/A - Med Ordered
--- NOTE | 2023-12-27 10:36 | PC.NURSE ---
assumed care of pt at 0700. pt a&o x4, calm, and cooperative. pt ate breakfast, medicated per mar. urinating great amount from lasix. 1:1 sitter at bedside for pt safety. denies SI deysi. rr even/unlabored. call pascual within reach. plan of care ongoing. awaiting bed assignment.
--- NOTE | 2023-12-27 11:00 | P.CNPS_ITS ---
History of Present Illness Date of Service: 12/27/23 Chief Complaint: Dyspnea, cough Requesting physician: Jen Chisholm Discussed with referring provider: Yes Sources of Information: patient interviewed and chart reviewed HPI Narrative: Juancho is a 48-year-old , single, homeless, disabled man with longstanding history of psychosis or depression with psychotic features, cocaine use and dependence. He has had many hospitalizations and was brought to the emergency room from [facility] where he was hospitalized for suicidal ideations and plans [place] go [place] which he has done in the past. He has been homeless but in the past 2 weeks has been staying with a friend and that may not be an option going forward. He has not connected to any outpatient services. Currently he is being treated for shortness of breath/possible CHF. He does have history of auditory and visual hallucinations and sometimes they are command in nature and this has been going on for years. He has not connected to any outpatient services. While at [facility] he was started on Zyprexa 10 mg b.i.d., Zoloft 50 mg daily and trazodone 100 mg q.h.s.. He denies any side effects. He states that he does have suicidal ideations but feels probably safe here. He is on one-to-one level of observation. Past Psychiatric History: Several inpatient hospitalizations. No recent outpatient connections Medical Evaluation Reviewed: Yes Personal & Social History: Marco is 1 of 3 siblings. Both parents are . He has not worked for years. He has 8 children from 5 different women with little connection to them. He is homeless. He was on disability but lost it because he went to [place] to be with some relatives and has lost his benefits which may need to be renewed. Review of Systems Review of Systems Shortness of breath, depression/psychosis Yes all other systems are reviewed and are negative [facility] Medical History Severe major depression with psychotic features H/O insulin dependent diabetes mellitus Family History: Unknown Substance History: Cocaine use for many years Trauma History: Unknown Diagnostics Vital Signs (24Hr): Vital Signs - 24 hr 12/26/23 17:22 12/26/23 18:44 12/26/23 19:02 Temperature 102.9 F H 102.1 F H Pulse Rate 126 H 120 H 114 H Respiratory Rate 24 H 18 27 H Blood Pressure 136/65 94/46 L 90/46 L Pulse Oximetry 95 96 Oxygen Delivery Method Nasal Cannula Nasal Cannula Oxygen Flow Rate 5 12/26/23 19:11 12/26/23 19:27 12/26/23 19:42 Temperature 101.8 F H Pulse Rate 114 H 109 H 106 H Respiratory Rate 17 16 25 H Blood Pressure 96/47 L 93/43 L 95/46 L Pulse Oximetry 96 94 94 Oxygen Delivery Method Nasal Cannula Room Air Oxymask Oxygen Flow Rate 5 12/26/23 20:40 12/26/23 20:43 12/26/23 21:03 Temperature 98.8 F Pulse Rate 101 H 104 H 99 Respiratory Rate 14 14 19 Blood Pressure 92/45 L 96/47 L 107/56 L Pulse Oximetry 98 98 96 Oxygen Delivery Method Oxymask Oxymask Oxygen Flow Rate 5 5 5 12/26/23 21:53 12/26/23 22:15 12/27/23 01:06 Temperature 98.3 F Pulse Rate 96 95 98 Respiratory Rate 18 21 H 20 Blood Pressure 112/58 L 107/56 L Pulse Oximetry 95 95 100 Oxygen Delivery Method Oxymask Oxymask Nasal Cannula Oxygen Flow Rate 5 5 5 BMI result Body Mass Index 23.6 Labs 12/27/23 05:07 12/27/23 05:07 Labs: Laboratory Results - last 48 hr 12/26/23 12/26/23 12/26/23 17:28 19:46 20:36 WBC 14.5 H RBC 2.92 L Hgb 8.5 L Hct 25.6 L MCV 87.7 MCH 29.1 MCHC 33.2 RDW 16.0 Plt Count 394 MPV 8.4 L Immature Gran % (Auto) 0.8 H Neut % (Auto) 68.2 Lymph % (Auto) 19.4 L [place] % (Auto) 10.5 Eos % (Auto) 0.8 Baso % (Auto) 0.3 Lymph # (Auto) 2.8 [place] # (Auto) 1.5 H Eos # (Auto) 0.1 Baso # (Auto) 0.1 Abs Immat Gran (auto) 0.11 H Absolute Neuts (auto) 9.9 H Absolute Nucleated RBC 0.070 H Nucleated RBC % (auto) 0.5 H Smear Tech's Comments VERIFIED VBG pH VBG pCO2 VBG pO2 VBG HCO3 VBG O2 Saturation VBG Base Excess Sodium 138 Potassium 4.2 Chloride 100 Carbon Dioxide 28 Anion Gap 14 BUN 15 Creatinine 0.88 Estim Creat Clear Calc 98.2 Estimated GFR > 60 POC Glucose 180 H Random Glucose 234 H Lactic Acid 3.5 H* Lactic Acid F/U @ 2Hr 2.4 H* Lactic Acid F/U @ 4Hr Calcium 8.6 Total Bilirubin 0.2 AST 44 H ALT 37 Alkaline Phosphatase 142 H B-Natriuretic Peptide 772 H Total Protein 6.6 Albumin 2.8 L Beta-Hydroxybutyrate 0.12 Urine Color Yellow Urine Appearance Clear Urine pH 7.5 Ur Specific [place] >= 1.030 H Urine Protein 100 (2+) H Urine Glucose (UA) 500 H Urine Ketones Trace Urine Blood Negative Urine Nitrite Negative Ur Leukocyte Esterase Negative Urine RBC 0-2 Urine WBC 6-10 H Ur Squamous Epith Cells 0-2 Urine Bacteria None Seen Hyaline Casts 0-2 Urine Opiates Screen Not Detected Urine Fentanyl Screen Not Detected Ur Barbiturates Screen Not Detected Ur Phencyclidine Scrn Not Detected Ur Amphetamines Screen Not Detected U Benzodiazepines Scrn Not Detected Urine Cocaine Screen Not Detected U Marijuana (THC) Screen Not Detected COVID-19 (DEMI) Negative COVID-19 Clin Com See Note Influenza Type A (LEONEL) Negative Influenza Type B (LEONEL) Negative Influenza A & B Note See Note 12/26/23 12/26/23 12/26/23 21:09 22:04 23:21 WBC RBC Hgb Hct MCV MCH MCHC RDW Plt Count MPV Immature Gran % (Auto) Neut % (Auto) Lymph % (Auto) [place] % (Auto) Eos % (Auto) Baso % (Auto) Lymph # (Auto) [place] # (Auto) Eos # (Auto) Baso # (Auto) Abs Immat Gran (auto) Absolute Neuts (auto) Absolute Nucleated RBC Nucleated RBC % (auto) Smear Tech's Comments VBG pH 7.50 H VBG pCO2 40 VBG pO2 149 VBG HCO3 31 H VBG O2 Saturation 100.0 VBG Base Excess 7.8 Sodium Potassium Chloride Carbon Dioxide Anion Gap BUN Creatinine Estim Creat Clear Calc Estimated GFR POC Glucose 326 H Random Glucose Lactic Acid Lactic Acid F/U @ 2Hr Lactic Acid F/U @ 4Hr 1.5 Calcium Total Bilirubin AST ALT Alkaline Phosphatase B-Natriuretic Peptide Total Protein Albumin Beta-Hydroxybutyrate Urine Color Urine Appearance Urine pH Ur Specific [place] Urine Protein Urine Glucose (UA) Urine Ketones Urine Blood Urine Nitrite Ur Leukocyte Esterase Urine RBC Urine WBC Ur Squamous Epith Cells Urine Bacteria Hyaline Casts Urine Opiates Screen Urine Fentanyl Screen Ur Barbiturates Screen Ur Phencyclidine Scrn Ur Amphetamines Screen U Benzodiazepines Scrn Urine Cocaine Screen U Marijuana (THC) Screen COVID-19 (DEMI) COVID-19 Clin Com Influenza Type A (LEONEL) Influenza Type B (LEONEL) Influenza A & B Note 12/27/23 12/27/23 05:07 07:52 WBC 12.7 H RBC 2.83 L Hgb 8.2 L Hct 24.8 L MCV 87.6 MCH 29.0 MCHC 33.1 RDW 16.0 Plt Count 382 MPV 8.7 L Immature Gran % (Auto) 0.6 H Neut % (Auto) 69.0 Lymph % (Auto) 17.8 L [place] % (Auto) 10.4 Eos % (Auto) 1.7 Baso % (Auto) 0.5 Lymph # (Auto) 2.3 [place] # (Auto) 1.3 H Eos # (Auto) 0.2 Baso # (Auto) 0.1 Abs Immat Gran (auto) 0.07 H Absolute Neuts (auto) 8.8 H Absolute Nucleated RBC 0.020 H Nucleated RBC % (auto) 0.2 Smear Tech's Comments VBG pH VBG pCO2 VBG pO2 VBG HCO3 VBG O2 Saturation VBG Base Excess Sodium 138 Potassium 4.0 Chloride 103 Carbon Dioxide 28 Anion Gap 11 L BUN 19 H Creatinine 0.94 Estim Creat Clear Calc 91.9 Estimated GFR > 60 POC Glucose 252 H Random Glucose 315 H Lactic Acid Lactic Acid F/U @ 2Hr Lactic Acid F/U @ 4Hr Calcium 8.0 L D Total Bilirubin AST ALT Alkaline Phosphatase B-Natriuretic Peptide Total Protein Albumin Beta-Hydroxybutyrate Urine Color Urine Appearance Urine pH Ur Specific [place] Urine Protein Urine Glucose (UA) Urine Ketones Urine Blood Urine Nitrite Ur Leukocyte Esterase Urine RBC Urine WBC Ur Squamous Epith Cells Urine Bacteria Hyaline Casts Urine Opiates Screen Urine Fentanyl Screen Ur Barbiturates Screen Ur Phencyclidine Scrn Ur Amphetamines Screen U Benzodiazepines Scrn Urine Cocaine Screen U Marijuana (THC) Screen COVID-19 (DEMI) COVID-19 Clin Com Influenza Type A (LEONEL) Influenza Type B (LEONEL) Influenza A & B Note Imaging Radiology Impressions: ITS Impressions Chest X-Ray 12/26/23 17:50 IMPRESSION: Increased central bronchovascular markings and question right upper lobe airspace disease or infiltrate. Probable small bilateral pleural effusions. Differential would include atypical interstitial or viral pneumonia and mild CHF. Chest CTA 12/26/23 19:33 IMPRESSION: 1. No evidence for central pulmonary emboli. 2. Dependent airspace changes more likely due to atelectasis. 3. VTE: Negative. Mental Status Exam Mental Status Exam Narrative: Marco was seen in the emergency room. He was laying on his bed comfortably. He was pleasant and cooperative. Speech is normal. Little eye contact. Affect is appropriate and constricted. No acute signs of psychosis but admits to auditory and visual hallucinations and command hallucinations. He admits to suicidal ideations. No homicidal ideations. Cognitively he is intact. Judgment is intact Medications Medications Current Medications Acetaminophen (Acetaminophen 325 Mg Tablet) 650 mg PO Q6H PRN PRN Reason: Pain, Mild (Pain Scale 1-3) Atorvastatin Calcium (Atorvastatin Calcium 20 Mg Tablet) 20 mg PO BEDTIME LOWELL Dextrose (Dextrose 50 % 25 Gm/50 Ml Syringe) 25 gm IVPUSH Q15M PRN; Protocol PRN Reason: per Hypoglycemia Standing Ord. Docusate Sodium (Docusate Sodium 100 Mg Capsule) 100 mg PO BID PRN PRN Reason: Constipation Enoxaparin Sodium (Enoxaparin Sodium 40 Mg/0.4 Ml Syringe) 40 mg SUBCUT Q24H LOWELL Last Admin: 12/26/23 23:17 Dose: 40 mg Furosemide (Furosemide 40 Mg/4 Ml Vial) 40 mg IVPUSH DAILY LOWELL; Protocol Last Admin: 12/27/23 08:06 Dose: 40 mg Gabapentin (Gabapentin 300 Mg Capsule) 300 mg PO TID LOWELL Glucose (Glucose Gel 15 Gm Gel..Gram.) 15 gm PO Q15M PRN; Protocol PRN Reason: per Hypoglycemia Standing Ord. Ceftriaxone Sodium 1 gm/ (Sodium Chloride) 50 mls @ 100 mls/hr IV Q24H LOWELL Last Infusion: 12/27/23 00:12 Dose: Infused Azithromycin 500 mg/ Sodium (Chloride) 250 mls @ 125 mls/hr IV Q24H LOWELL Last Infusion: 12/27/23 02:13 Dose: Infused Insulin Glargine (Insulin Glargine,Hum.Rec.Anlog 100 Unit/Ml 10 Ml Vial) 30 unit SUBCUT BEDTIME LOWELL Insulin Human Lispro (Insulin Lispro 100 Unit/Ml 3 Ml Vial) 0 unit SUBCUT QIDACHS [facility]; Protocol Last Admin: 12/27/23 08:05 Dose: 6 unit Melatonin (Melatonin 3 Mg Tablet) 6 mg PO BEDTIME PRN PRN Reason: Insomnia Nicotine Polacrilex (Nicotine Polacrilex 2 Mg Gum) 2 mg BUCCAL Q2H PRN PRN Reason: Nicotine Cravings Non-Formulary Medication (Hydroxyzine Pamoate) 50 mg PO TID PRN PRN Reason: Anxiety Non-Formulary Medication (Trazodone) 100 mg PO BEDTIME PRN PRN Reason: Insomnia Olanzapine (Olanzapine 10 Mg Tablet) 10 mg PO BEDTIME LOWELL Olanzapine (Olanzapine Odt 10 Mg Tab.Rapdis) 10 mg TRANSLINGU DAILY LOWELL Ondansetron HCl (Ondansetron Hcl 4 Mg/2 Ml Vial) 4 mg IVPUSH Q8H PRN PRN Reason: Nausea and Vomiting Sertraline HCl (Sertraline Hcl 50 Mg Tablet) 50 mg PO DAILY [facility] Sodium Chloride (0.9 % Sodium Chloride Flush 3 Ml Syringe) 3 ml IVFLUSH QSHIFT [facility] Last Admin: 12/27/23 08:19 Dose: Not Given Allergies Allergies Allergy/AdvReac Type Severity Reaction Status Date / Time shellfish derived Allergy Unknown Verified 12/26/23 18:25 Assessment & Plan Assessment & Plan (1) Major depression with psychotic features: Status: Acute Code(s): F32.3 - Major depressive disorder, single episode, severe with psychotic features Plan Teras continues to be having suicidal ideations and needs to be rehospitalized, going back to [facility] if it has an option or a new bed search current regimen for now. I would still keep him on one-to-one even though he is not talking about plans to do anything while here. Thank you for the consultation Total time managing care of this patient today ____ minutes.
--- NOTE | 2023-12-27 11:58 | PHA.MEDREC ---
Pharmacy Consult ? Medication Reconciliation Medication Reconciliation done with list from facility . Pharmacy has completed the medication reconciliation.
--- NOTE | 2023-12-27 13:05 | PC.NURSE ---
called kitchen for softer meal tray requested by pt due to no teeth.
[2023-12-27 13:22] LABS: Glucose, Whole Blood 206 mg/dL (60-115)
[2023-12-27] MEDS: Acetaminophen 325 MG TABLET 650 MG PO ×2 (13:30→21:02)
[2023-12-27] MEDS: Gabapentin 300 MG CAPSULE PO ×2 (16:30→21:01)
[2023-12-27 16:47] VITALS: BP 129/58; PULSE 109; RESP 18; TEMP 37.1; O2SAT 99
[2023-12-27 18:05] VITALS: BMI 21.8
[2023-12-27 18:34] VITALS: BP 140/83; PULSE 104; RESP 20; TEMP 36.7; O2SAT 95
[2023-12-27 18:39] LABS: Glucose, Whole Blood 344 mg/dL (60-115)
--- NOTE | 2023-12-27 18:54 | PC.NURSE ---
assuming patient care from ED @18:35. Accompanied by kar.
[2023-12-27 19:48] VITALS: BP 149/73; PULSE 113; RESP 18; TEMP 37.6; O2SAT 97
[2023-12-27 20:25] LABS: Glucose, Whole Blood 404 mg/dL (60-115)
[2023-12-27] MEDS: OLANZapine 10 MG TABLET PO (21:01)
[2023-12-27] MEDS: Insulin Regular, Human 100 UNIT/ML 3 ML VIAL IVPUSH (21:01)
[2023-12-27] MEDS: Atorvastatin Calcium 20 MG TABLET PO (21:03)
[2023-12-27] MEDS: Insulin Glargine,Hum.rec.anlog 100 UNIT/ML 10 ML VIAL 30 UNIT SUBCUT (21:04)
[2023-12-27] MEDS: traZODone HCL 100 MG TABLET PO (21:10)
[2023-12-27 22:07] VITALS: TEMP 37
[2023-12-27 22:24] LABS: Glucose, Whole Blood 296 mg/dL (60-115)
[2023-12-27] MEDS: Enoxaparin Sodium 40 MG/0.4 ML SYRINGE SUBCUT (23:03)
[2023-12-27] MEDS: cefTRIAXone sodium 1 GM in 0.9 % Sodium Chloride 50 ML IV (23:10)
[2023-12-27 23:13] VITALS: BP 92/55; PULSE 102; RESP 18; TEMP 36.6; O2SAT 93
[2023-12-28 04:00] VITALS: BP 111/59; PULSE 102; RESP 20; TEMP 36.6; O2SAT 94
[2023-12-28 06:56] LABS: Glucose, Whole Blood 218 mg/dL (60-115)
--- NOTE | 2023-12-28 07:00 | CA_ITS ---
Transthoracic Echocardiogram Patient (Last, First, Middle): Marco Heath, Gender: Male Date of : 1975 Age: 48 Procedure Date: 12/28/2023 Procedure Type: Transthoracic Echocardiogram Location: [facility] [place] Height: 172.72 cm Weight: 64.86 kg BSA: 1.77 m2 Heart Rate: 97 bpm BP: 116 / 64 mmHg Bulk Plant Agent: SB Referring MD: Dale Sims MD Symptoms: chf Study Quality: Adequate ECG Rhythm: Sinus Conclusions: - 1. Normal LV ejection fraction of 60 65% with mild LVH with pseudonormal filling pattern 2. Mild biatrial enlargement 3. Normal cardiac valvular Dopplers 4. Upper limits of normal RV systolic pressure 5. Trivial pericardial effusion Findings Left Ventricle Normal left ventricular size and systolic function. There is mildly increased left ventricular wall thickness. The visually estimated ejection fraction is between 60-65%. Spectral Doppler is indicative of a pseudonormal filling pattern. E/E prime ratio is between 8 and 15 consistent with indeterminate filling pressures. Peak GLS is -15.5%, which is mildly reduced. Right Ventricle Normal right ventricular cavity size and systolic function. Atria The left atrium is mildly dilated. Interatrial shunt cannot be excluded. The right atrium is likely dilated. Aortic Valve Normal aortic valve structure and function. There is no aortic valve stenosis. There is no aortic valve regurgitation. Mitral Valve Normal mitral valve structure and function. There is trace mitral valve regurgitation. There is no mitral valve stenosis. Pulmonic Valve The pulmonic valve is likely normal. There is trace pulmonic valve regurgitation. Tricuspid Valve Normal tricuspid valve structure. There is mild tricuspid valve regurgitation. Normal right atrial pressure. There is no evidence of pulmonary hypertension. Great Vessels All visible segments of the aorta are normal in size. The pulmonary artery was not well visualized. There is no dilatation of the ascending aorta measuring 3.00 cm. Venous The inferior vena cava is normal in size and collapses greater than 50% with inspiration. Pericardium/Pleural There is a trivial loculated pericardial effusion overlying the left ventricle. Prior Study Comparison No prior study available for comparison. Measurements 2D Linear Measurements IVSd: 1.27 0.6-0.9/0.6-1.0 cm LVIDd: 4.26 3.9-5.3/4.2-5.9 cm LVIDd Index: 2.41 2.4-3.2/2.2-3.1 cm/m2 LVIDs: 2.36 2.0-3.6 cm LVPWd: 1.37 0.7-1.1 cm LA Diam: 3.90 2.7-3.8/3.0-4.0 cm LAIDs Index: 2.20 1.5-2.3 cm/m2 LV Mass: 261.25 67-162/88-224 g LV Mass Index: 147.60 43-95/49-115 g/m2 LVOT Diam: 2.00 3.0+(-)1.3 cm 2D Systolic Function EF 4C: 63.60 >55% EF 2C: 62.40 >55% EF BiP: 63.60 >55% Mitral Valve MV Pk E: 1.14 MV PK A: 0.83 MV Decel Time: 147.00 E/A: 1.40 E'Lateral: 11.50 E'Medial: 7.07 E/E' Med: 16.10 E/E' Lat: 9.90 PHT: 43.00 MVA PHT: 5.12 Decel [place]: 7.78 Aortic Valve AoV Pk Harris: 1.53 AoV Pk Grad: 9.00 JAYESH: 2.47 LVOT LVOT Pk Harris: 1.16 LVOT Mn Harris: 0.87 LVOT VTI: 0.21 LVOT Pk Grad: 5.00 LVOT Mn Grad: 3.00 LVOT Diam: 2.00 LVOT Area: 3.14 Diastolic Function MV Pk E: 1.14 MV Pk A: 0.83 E/A: 1.40 E'Medial: 7.07 E/E' Med: 16.10 E' Laterial: 11.50 E/E' Lat: 9.90 Right Ventricle TAPSE (mm): 20.40 TVS' Harris: 18.60 Tricuspid Valve TR Pk Harris: 2.88 TR Pk Grad: 33.00 RA Press: 3.00 RVSP: 36.00 Great Vessels Aorta Sinus of Valsalva: 3.10 2.0-3.5 cm Ao Asc: 3.00 2.1-3.4 cm Pulmonary Veins Pulm Vein S/D 1.50 Pulmonary Valve PV Pk Harris: 0.92 Peak PV Grad: 3.00 Updated in Other Vendor System with Status of Final Jose Douglas MD electronically signed on 12/28/2023 2:37:46 PM with status of Final
[2023-12-28 07:10] VITALS: BP 116/64; PULSE 100; RESP 18; TEMP 37.6; O2SAT 95
[2023-12-28 07:22] LABS: Hematocrit 23.7 % (42.0-52.0); Hemoglobin 7.9 g/dl (14.0-18.0); Mean Corpuscular HGB Conc 33.3 g/dl (31.0-36.0); Mean Corpuscular Hemoglobin 28.9 pg (27.0-33.0); Mean Corpuscular Volume 86.8 fL (80.0-98.0); Mean Platelet Volume 9.2 fL (9.4-12.4); NRBC Pct Auto 0.3 /100WBC (0.0-0.2); Platelet Count 425 X10*3/uL (160-400); Red Blood Count 2.73 X10*6/uL (4.60-5.80); Red Cell Distribution Width 15.8 % (11.0-16.0); White Blood Count 8.9 X10*3/uL (4.8-10.8)
[2023-12-28 07:32] LABS: Anion Gap 10 (12-20); Blood Urea Nitrogen 14 mg/dL (9-16); Calcium 8.3 mg/dL (8.4-10.2); Carbon Dioxide 32 mmol/L (22-29); Chloride 99 mmol/L (96-108); Creatinine Clr Calc Pharmacy 100.1; Estimated Glomerular Filt Rate > 60; Glucose Random 248 mg/dL (60-115); Potassium 4.1 mmol/L (3.3-5.1); Sodium 137 mmol/L (135-145)
[2023-12-28 07:41] LABS: B Type Natriuretic Peptide 400 pg/mL (<100)
[2023-12-28] MEDS: 0.9 % Sodium Chloride Flush 3 ML SYRINGE IVFLUSH ×3 (08:07→21:13)
[2023-12-28] MEDS: Furosemide 40 MG/4 ML VIAL IVPUSH (08:07)
[2023-12-28] MEDS: OLANZapine ODT 10 MG TAB.RAPDIS TRANSLINGU (08:07)
[2023-12-28] MEDS: Insulin Lispro 100 UNIT/ML 3 ML VIAL SUBCUT ×4 (08:07→21:12)
[2023-12-28] MEDS: Sertraline HCL 50 MG TABLET PO (08:07)
[2023-12-28] MEDS: Gabapentin 300 MG CAPSULE PO ×3 (08:07→21:08)
[2023-12-28] MEDS: Acetaminophen 325 MG TABLET 650 MG PO ×2 (08:10→21:10)
[2023-12-28 10:54] LABS: Glucose, Whole Blood 205 mg/dL (60-115)
[2023-12-28 10:59] VITALS: BP 105/59; PULSE 97; RESP 18; TEMP 37.3; O2SAT 92
--- NOTE | 2023-12-28 11:49 | HO.PM.IMPN ---
Subjective Subjective Date of Service: 12/28/23 Interval History: Denies shortness of breath, complaining of generalized fatigue, no nausea, no vomiting ,tolerating diet ,asking for protein shakes, no fevers, no chills, no other acute events overnight Review of Systems All other system reviewed and negative Physical Exam Vital Signs: Vital Signs: Last Vital Signs Temp 99.2 F 12/28/23 10:59 Pulse 97 12/28/23 10:59 Resp 18 12/28/23 10:59 BP 105/59 L 12/28/23 10:59 Pulse Ox 92 12/28/23 10:59 O2 Del Method Room Air 12/28/23 10:59 O2 Flow Rate 2 12/28/23 07:10 Oxygen Flow Rate 5 12/26/23 17:22 BMI result Body Mass Index 21.8 Const: Other: General awake alert x3, resting comfortably in no acute distress. Neck supple, no JVD. CVS regular rate rhythm, Respiratory lungs clear to auscultation, crackles resolved, no respiratory distress Gastrointestinal abdomen soft, non tender, bowel sounds audible, no guarding , no rigidity. Extremities lower extremity edema improved. Neuro non focal Skin no rash Objective Data Active Medications Acetaminophen (Acetaminophen 325 Mg Tablet) 650 mg PO Q6H PRN PRN Reason: Pain, Mild (Pain Scale 1-3) Last Admin: 12/28/23 08:10 Dose: 650 mg Documented By: PEYTON Atorvastatin Calcium (Atorvastatin Calcium 20 Mg Tablet) 20 mg PO BEDTIME [facility] Last Admin: 12/27/23 21:03 Dose: 20 mg Documented By: HUSEYIN Dextrose (Dextrose 50 % 25 Gm/50 Ml Syringe) 25 gm IVPUSH Q15M PRN; Protocol PRN Reason: per Hypoglycemia Standing Ord. Docusate Sodium (Docusate Sodium 100 Mg Capsule) 100 mg PO BID PRN PRN Reason: Constipation Enoxaparin Sodium (Enoxaparin Sodium 40 Mg/0.4 Ml Syringe) 40 mg SUBCUT Q24H LOWELL Last Admin: 12/27/23 23:03 Dose: 40 mg Documented By: HUSEYIN Furosemide (Furosemide 40 Mg/4 Ml Vial) 40 mg IVPUSH DAILY LOWELL; Protocol Last Admin: 12/28/23 08:07 Dose: 40 mg Documented By: PEYTON Gabapentin (Gabapentin 300 Mg Capsule) 300 mg PO TID [facility] Last Admin: 12/28/23 08:07 Dose: 300 mg Documented By: PEYTON Glucose (Glucose Gel 15 Gm Gel..Gram.) 15 gm PO Q15M PRN; Protocol PRN Reason: per Hypoglycemia Standing Ord. Hydroxyzine HCl (Hydroxyzine Hcl 50 Mg Tablet) 50 mg PO TID PRN PRN Reason: Anxiety Ceftriaxone Sodium 1 gm/ (Sodium Chloride) 50 mls @ 100 mls/hr IV Q24H [facility] Last Infusion: 12/27/23 23:40 Dose: Infused Documented By: FLORIAN Azithromycin 500 mg/ Sodium (Chloride) 250 mls @ 125 mls/hr IV Q24H [facility] Last Infusion: 12/28/23 01:47 Dose: Infused Documented By: FLORIAN Insulin Glargine (Insulin Glargine,Hum.Rec.Anlog 100 Unit/Ml 10 Ml Vial) 30 unit SUBCUT BEDTIME [facility] Last Admin: 12/27/23 21:04 Dose: 30 unit Documented By: HUSEYIN Insulin Human Lispro (Insulin Lispro 100 Unit/Ml 3 Ml Vial) 0 unit SUBCUT QIDACHS [facility]; Protocol Last Admin: 12/28/23 11:46 Dose: 6 unit Documented By: PEYTON Melatonin (Melatonin 3 Mg Tablet) 6 mg PO BEDTIME PRN PRN Reason: Insomnia Nicotine Polacrilex (Nicotine Polacrilex 2 Mg Gum) 2 mg BUCCAL Q2H PRN PRN Reason: Nicotine Cravings Olanzapine (Olanzapine 10 Mg Tablet) 10 mg PO BEDTIME [facility] Last Admin: 12/27/23 21:01 Dose: 10 mg Documented By: HUSEYIN Olanzapine (Olanzapine Odt 10 Mg Tab.Rapdis) 10 mg TRANSLINGU DAILY [facility] Last Admin: 12/28/23 08:07 Dose: 10 mg Documented By: PEYTON Ondansetron HCl (Ondansetron Hcl 4 Mg/2 Ml Vial) 4 mg IVPUSH Q8H PRN PRN Reason: Nausea and Vomiting Sertraline HCl (Sertraline Hcl 50 Mg Tablet) 50 mg PO DAILY [facility] Last Admin: 12/28/23 08:07 Dose: 50 mg Documented By: PEYTON Sodium Chloride (0.9 % Sodium Chloride Flush 3 Ml Syringe) 3 ml IVFLUSH QSHIFT [facility] Last Admin: 12/28/23 08:07 Dose: 3 ml Documented By: PEYTON Trazodone HCl (Trazodone Hcl 100 Mg Tablet) 100 mg PO BEDTIME PRN PRN Reason: Insomnia Last Admin: 12/27/23 21:10 Dose: 100 mg Documented By: HUSEYIN Labs 12/28/23 06:36 12/28/23 06:36 Labs: Laboratory Results - last 24 hr 12/27/23 12/27/23 12/27/23 13:03 18:35 20:18 MCV MCH MCHC RDW Plt Count MPV Absolute Nucleated RBC Nucleated RBC % (auto) Anion Gap Estim Creat Clear Calc Estimated GFR POC Glucose 206 H 344 H 404 H* Random Glucose Calcium B-Natriuretic Peptide 12/27/23 12/28/23 12/28/23 22:20 06:36 06:49 MCV 86.8 MCH 28.9 MCHC 33.3 RDW 15.8 Plt Count 425 H MPV 9.2 L Absolute Nucleated RBC 0.030 H Nucleated RBC % (auto) 0.3 H Anion Gap 10 L Estim Creat Clear Calc 100.1 Estimated GFR > 60 POC Glucose 296 H 218 H Random Glucose 248 H Calcium 8.3 L B-Natriuretic Peptide 400 H 12/28/23 10:48 MCV MCH MCHC RDW Plt Count MPV Absolute Nucleated RBC Nucleated RBC % (auto) Anion Gap Estim Creat Clear Calc Estimated GFR POC Glucose 205 H Random Glucose Calcium B-Natriuretic Peptide Microbiology Microbiology Results: Microbiology 12/27/23 15:21 Gram Stain - Final Sputum - Expectorated Sputum Culture - Preliminary No growth to date. 12/27/23 04:14 Urine Culture - Final Urine clean catch - Urine vanessa top No growth. 12/26/23 17:28 Blood Culture - Preliminary Blood - Venous No growth after 24 hours. 12/26/23 17:28 Blood Culture - Preliminary Blood - Venous No growth after 24 hours. Assessment and Plan (1) Bilateral pleural effusion: Status: Acute (2) Pneumonia: Status: Acute (3) Acute hypoxic respiratory failure: Status: Acute (4) CHF exacerbation: Status: Acute Plan 48-year-old male with pertinent history of mood disorder, congestive heart failure unspecified EF, insulin-dependent diabetes mellitus with neuropathy, mixed hyperlipidemia who presents to the emergency department from [facility] for evaluation of fever, productive cough and dyspnea #. Acute hypoxemic respiratory failure and Sepsis due to community-acquired pneumonia/chf: On admission noted to have high-grade fever, tachycardia, tachypnea and lactic acidosis 3.5 Chest x-ray showed mild CHF/right upper lobe airspace disease on IV ceftriaxone and IV azithromycin day 3, blood cultures negative, WBC normalized,clinically improved will transition to by mouth antibiotics #. Acute lactic acidosis due to sepsis resolved #. Acute on chronic congestive heart failure, unspecified EF: Clinically improved, BNP 772 on admission, improved to 400 Will DC IV Lasix,neg 1600 ml, follow echocardiogram, resume po Lasix. Follow BMP #. Normocytic anemia: Follow CBC/iron studies/stool guaiac. #. Insulin-dependent diabetes mellitus with hyperglycemia: Will resume Lantus 30 units at bedtime home dose 37 units, continue insulin sliding scale diabetic diet and monitor point of care #. Mood disorder: Continue home medications on Zyprexa and Seroquel both will hold Seroquel for now since patient is somnolent #. Suicidal ideation: Consulted sitter and Psychiatry #. Mixed hyperlipidemia: on Lipitor DVT prophylaxis: Lovenox Full code Patient will require continued inpatient hospitalization for acute CHF treatment and close cardiac monitoring and expert consultation. Quality Stroke Does the patient have a stroke diagnosis?: No VTE Prior VTE?: No VTE Risk Level:: Medical - moderate - high VTE Device Contraindication: Treatment Not Indicated VTE Drug Contraindication: N/A - Med Ordered
[2023-12-28] MEDS: cefuroxime axetiL 500 MG TABLET PO ×2 (12:18→23:13)
[2023-12-28 12:39] LABS: Iron 27 mcg/dL (45-160); Percent Iron Saturation 15 % (15-50); Total Iron Binding Capacity 176 mcg/dL (228-428); Unsaturated Iron Binding 149 ug/dL
[2023-12-28 15:31] VITALS: BP 123/68; PULSE 100; RESP 20; TEMP 37.2; O2SAT 93
[2023-12-28 15:37] LABS: Glucose, Whole Blood 261 mg/dL (60-115)
--- NOTE | 2023-12-28 16:25 | MHC.CM.PN ---
Addendum entered by Brenda Robison 12/28/23 16:25: PER EMR, PT IS FROM [place] AND WAS TRANSFERRED HERE FROM [facility] PT WILL NEED A CARE TEAM EVAL PRIOR TO DC DCP: HOME VS RETURN TO [facility] Original Note: CM ATTEMPTED TO SEE PT X 2 THROUGHOUT THE DAY PT APPEARS TO BE SLEEPING AND DOES NOT RESPOND TO NAME CM TO REVISIT
[2023-12-28 20:00] VITALS: BP 119/66; PULSE 103; RESP 20; TEMP 36.9; O2SAT 92
[2023-12-28 20:07] LABS: Glucose, Whole Blood 349 mg/dL (60-115)
[2023-12-28] MEDS: Atorvastatin Calcium 20 MG TABLET PO (21:08)
[2023-12-28] MEDS: OLANZapine 10 MG TABLET PO (21:08)
[2023-12-28] MEDS: Insulin Glargine,Hum.rec.anlog 100 UNIT/ML 10 ML VIAL 30 UNIT SUBCUT (21:13)
[2023-12-28 23:12] VITALS: BP 109/55; PULSE 99; RESP 20; TEMP 36.9; O2SAT 94
[2023-12-28] MEDS: traZODone HCL 100 MG TABLET PO (23:13)
[2023-12-28] MEDS: Enoxaparin Sodium 40 MG/0.4 ML SYRINGE SUBCUT (23:13)
[2023-12-29] VITALS (7 sets, daily range): BP systolic 103–126; BP diastolic 56–64; PULSE 97–107; RESP 18–20; TEMP 36.3–37.2; O2SAT 91–97
[2023-12-29] MEDS: Acetaminophen 325 MG TABLET 650 MG PO ×2 (05:56→16:45)
[2023-12-29 07:01] LABS: Hematocrit 26.6 % (42.0-52.0); Hemoglobin 8.7 g/dl (14.0-18.0); Mean Corpuscular HGB Conc 32.7 g/dl (31.0-36.0); Mean Corpuscular Hemoglobin 28.8 pg (27.0-33.0); Mean Corpuscular Volume 88.1 fL (80.0-98.0); Mean Platelet Volume 8.8 fL (9.4-12.4); NRBC Pct Auto 0.4 /100WBC (0.0-0.2); Platelet Count 492 X10*3/uL (160-400); Red Blood Count 3.02 X10*6/uL (4.60-5.80); Red Cell Distribution Width 15.7 % (11.0-16.0); White Blood Count 8.1 X10*3/uL (4.8-10.8)
[2023-12-29 07:16] LABS: Anion Gap 11 (12-20); Blood Urea Nitrogen 14 mg/dL (9-16); Calcium 8.9 mg/dL (8.4-10.2); Carbon Dioxide 29 mmol/L (22-29); Chloride 102 mmol/L (96-108); Creatinine Clr Calc Pharmacy 101.4; Estimated Glomerular Filt Rate > 60; Glucose Random 264 mg/dL (60-115); Potassium 4.3 mmol/L (3.3-5.1); Sodium 138 mmol/L (135-145)
[2023-12-29 07:21] LABS: Glucose, Whole Blood 252 mg/dL (60-115)
[2023-12-29] MEDS: Gabapentin 300 MG CAPSULE PO ×3 (07:58→21:02)
[2023-12-29] MEDS: 0.9 % Sodium Chloride Flush 3 ML SYRINGE IVFLUSH ×3 (07:59→21:06)
[2023-12-29] MEDS: Insulin Lispro 100 UNIT/ML 3 ML VIAL SUBCUT ×4 (07:59→21:02)
[2023-12-29] MEDS: OLANZapine ODT 10 MG TAB.RAPDIS TRANSLINGU (07:59)
[2023-12-29] MEDS: Sertraline HCL 50 MG TABLET PO (07:59)
[2023-12-29] MEDS: Furosemide 40 MG TABLET PO (07:59)
--- NOTE | 2023-12-29 09:57 | MHC.CM.PN ---
This CM met with pt, he reports homelessness, states he has been living here or there and is not sure he is able to return to the last friends house he stayed at. Pt states he would like to return to [facility] at D/C for more treatment there. Pt will need assistance with transportation. Will need CARE Team eval to assist with D/C disposition. [facility] [place]
[2023-12-29 11:38] LABS: Glucose, Whole Blood 231 mg/dL (60-115)
[2023-12-29] MEDS: cefuroxime axetiL 500 MG TABLET PO (11:42)
--- NOTE | 2023-12-29 14:19 | HO.PM.IMPN ---
Subjective Subjective Date of Service: 12/29/23 Interval History: Feeling better this morning, denies shortness of breath, no chest pain, no lightheadedness, no dizziness, no acute events overnight oxygenation stable tolerating diet. Requesting for protein shakes. Review of Systems All other system reviewed and negative Physical Exam Vital Signs: Vital Signs: Last Vital Signs Temp 97.8 F 12/29/23 11:34 Pulse 98 12/29/23 11:34 Resp 18 12/29/23 11:34 BP 122/58 L 12/29/23 11:34 Pulse Ox 95 12/29/23 11:34 O2 Del Method Room Air 12/29/23 11:34 O2 Flow Rate 2 12/28/23 07:10 Oxygen Flow Rate 5 12/26/23 17:22 BMI result Body Mass Index 21.8 Const: Other: General awake alert x3, resting comfortably in no acute distress. Neck supple, no JVD. CVS regular rate rhythm, Respiratory lungs clear to auscultation, no crackles , no respiratory distress Gastrointestinal abdomen soft, non tender, bowel sounds audible, no guarding , no rigidity. Extremities trace lower extremity edema . Neuro non focal Skin no rash Objective Data Active Medications Acetaminophen (Acetaminophen 325 Mg Tablet) 650 mg PO Q6H PRN PRN Reason: Pain, Mild (Pain Scale 1-3) Last Admin: 12/29/23 05:56 Dose: 650 mg Documented By: LEO Atorvastatin Calcium (Atorvastatin Calcium 20 Mg Tablet) 20 mg PO BEDTIME [facility] Last Admin: 12/28/23 21:08 Dose: 20 mg Documented By: LEO Cefuroxime Axetil (Cefuroxime Axetil 500 Mg Tablet) 500 mg PO Q12H [facility] Last Admin: 12/29/23 11:42 Dose: 500 mg Documented By: MARC Dextrose (Dextrose 50 % 25 Gm/50 Ml Syringe) 25 gm IVPUSH Q15M PRN; Protocol PRN Reason: per Hypoglycemia Standing Ord. Docusate Sodium (Docusate Sodium 100 Mg Capsule) 100 mg PO BID PRN PRN Reason: Constipation Enoxaparin Sodium (Enoxaparin Sodium 40 Mg/0.4 Ml Syringe) 40 mg SUBCUT Q24H [facility] Last Admin: 12/28/23 23:13 Dose: 40 mg Documented By: LEO Furosemide (Furosemide 40 Mg Tablet) 40 mg PO DAILY [facility]; Protocol Last Admin: 12/29/23 07:59 Dose: 40 mg Documented By: MARC Gabapentin (Gabapentin 300 Mg Capsule) 300 mg PO TID [facility] Last Admin: 12/29/23 07:58 Dose: 300 mg Documented By: MARC Glucose (Glucose Gel 15 Gm Gel..Gram.) 15 gm PO Q15M PRN; Protocol PRN Reason: per Hypoglycemia Standing Ord. Hydroxyzine HCl (Hydroxyzine Hcl 50 Mg Tablet) 50 mg PO TID PRN PRN Reason: Anxiety Insulin Glargine (Insulin Glargine,Hum.Rec.Anlog 100 Unit/Ml 10 Ml Vial) 30 unit SUBCUT BEDTIME [facility] Last Admin: 12/28/23 21:13 Dose: 30 unit Documented By: LEO Insulin Human Lispro (Insulin Lispro 100 Unit/Ml 3 Ml Vial) 0 unit SUBCUT QIDACHS [facility]; Protocol Last Admin: 12/29/23 11:42 Dose: 6 unit Documented By: MARC Melatonin (Melatonin 3 Mg Tablet) 6 mg PO BEDTIME PRN PRN Reason: Insomnia Nicotine Polacrilex (Nicotine Polacrilex 2 Mg Gum) 2 mg BUCCAL Q2H PRN PRN Reason: Nicotine Cravings Olanzapine (Olanzapine 10 Mg Tablet) 10 mg PO BEDTIME [facility] Last Admin: 12/28/23 21:08 Dose: 10 mg Documented By: LEO Olanzapine (Olanzapine Odt 10 Mg Tab.Rapdis) 10 mg TRANSLINGU DAILY [facility] Last Admin: 12/29/23 07:59 Dose: 10 mg Documented By: MARC Ondansetron HCl (Ondansetron Hcl 4 Mg/2 Ml Vial) 4 mg IVPUSH Q8H PRN PRN Reason: Nausea and Vomiting Sertraline HCl (Sertraline Hcl 50 Mg Tablet) 50 mg PO DAILY [facility] Last Admin: 12/29/23 07:59 Dose: 50 mg Documented By: MARC Sodium Chloride (0.9 % Sodium Chloride Flush 3 Ml Syringe) 3 ml IVFLUSH QSHIFT [facility] Last Admin: 12/29/23 07:59 Dose: 3 ml Documented By: MARC Trazodone HCl (Trazodone Hcl 100 Mg Tablet) 100 mg PO BEDTIME PRN PRN Reason: Insomnia Last Admin: 12/28/23 23:13 Dose: 100 mg Documented By: LEO Labs 12/29/23 06:30 12/29/23 06:30 Labs: Laboratory Results - last 24 hr 12/28/23 12/28/23 12/29/23 15:33 20:03 06:30 MCV 88.1 MCH 28.8 MCHC 32.7 RDW 15.7 Plt Count 492 H MPV 8.8 L Absolute Nucleated RBC 0.030 H Nucleated RBC % (auto) 0.4 H Anion Gap 11 L Estim Creat Clear Calc 101.4 Estimated GFR > 60 POC Glucose 261 H 349 H Random Glucose 264 H Calcium 8.9 D 12/29/23 12/29/23 07:18 11:32 MCV MCH MCHC RDW Plt Count MPV Absolute Nucleated RBC Nucleated RBC % (auto) Anion Gap Estim Creat Clear Calc Estimated GFR POC Glucose 252 H 231 H Random Glucose Calcium Microbiology Microbiology Results: Microbiology 12/27/23 15:21 Gram Stain - Final Sputum - Expectorated Sputum Culture - Preliminary Culture in progress. 12/26/23 17:28 Blood Culture - Preliminary Blood - Venous No growth after 48 hours. 12/26/23 17:28 Blood Culture - Preliminary Blood - Venous No growth after 48 hours. Assessment and Plan (1) Bilateral pleural effusion: Status: Acute (2) Pneumonia: Status: Acute (3) Acute hypoxic respiratory failure: Status: Acute (4) CHF exacerbation: Status: Acute Plan 48-year-old male with pertinent history of mood disorder, congestive heart failure unspecified EF, insulin-dependent diabetes mellitus with neuropathy, mixed hyperlipidemia who presents to the emergency department from [facility] for evaluation of fever, productive cough and dyspnea #. Acute hypoxemic respiratory failure and Sepsis due to community-acquired pneumonia/chf: On admission noted to have high-grade fever, tachycardia, tachypnea and lactic acidosis 3.5 Chest x-ray showed mild CHF/right upper lobe airspace disease on IV ceftriaxone and IV azithromycin day 4, blood cultures negative, WBC normalized,clinically improved will transition to by mouth antibiotics #. Acute lactic acidosis due to sepsis resolved #. Acute on chronic congestive heart failure with preserved EF. Clinically improved, BNP 772 on admission, improved to 400, s/p IV Lasix,neg 1600 ml, echocardiogram showed EF 60-65%, mild biatrial enlargement , indeterminate filling pressures resume po Lasix. Follow BMP #. Normocytic anemia likely chronic: Normal iron studies, stool guaiac not collected, stable hemoglobin and hematocrit , patient not aware of history of anemia. #. Insulin-dependent diabetes mellitus with hyperglycemia: Continue Lantus 30 units at bedtime home dose 37 units, continue insulin sliding scale diabetic diet and monitor point of care #. Mood disorder: Continue home medications on Zyprexa and Seroquel both will hold Seroquel , continue all other home medications #. Suicidal ideation: seen by Psychiatry they recommend to continue sitter and hospitalization due to persistent suicidal ideation. Consulted care team, patient medically cleared for placement. #. Mixed hyperlipidemia: on Lipitor DVT prophylaxis: Lovenox Full code Patient will require continued inpatient hospitalization for acute CHF treatment and close cardiac monitoring and expert consultation. Quality Stroke Does the patient have a stroke diagnosis?: No VTE Prior VTE?: No VTE Risk Level:: Medical - moderate - high VTE Device Contraindication: Treatment Not Indicated VTE Drug Contraindication: N/A - Med Ordered
[2023-12-29 14:46] LABS: OBS Int Ctl Valid YES; OBS1 NEGATIVE (NEGATIVE)
--- NOTE | 2023-12-29 15:02 | MHC.CLN ---
NUTRITION DIET CHANGED TO DIABETIC 2200 KCALS. SUPPLEMENT ENSURE MAX PROTEIN BID. PROVIDES 300 KCALS, 60 G PROTEIN. INTAKE AT MEALS APPEARS GOOD.
[2023-12-29 16:38] LABS: Glucose, Whole Blood 331 mg/dL (60-115)
[2023-12-29 19:48] LABS: Glucose, Whole Blood 317 mg/dL (60-115)
[2023-12-29] MEDS: Atorvastatin Calcium 20 MG TABLET PO (21:02)
[2023-12-29] MEDS: OLANZapine 10 MG TABLET PO (21:02)
[2023-12-29] MEDS: Insulin Glargine,Hum.rec.anlog 100 UNIT/ML 10 ML VIAL 35 UNIT SUBCUT (21:03)
--- NOTE | 2023-12-29 23:06 | MHC.CARE ---
RAD Team conducted state wide bed search for this pt, referral was sent to [facility], [facility], [facility], [facility], [facility], [facility], [facility], [facility], [facility], [facility] for review. RAD Team to follow up tomorrow
[2023-12-29] MEDS: Enoxaparin Sodium 40 MG/0.4 ML SYRINGE SUBCUT (23:27)
[2023-12-29] MEDS: traZODone HCL 100 MG TABLET PO (23:27)
[2023-12-30] MEDS: cefuroxime axetiL 500 MG TABLET PO ×3 (01:18→23:30)
[2023-12-30] MEDS: Acetaminophen 325 MG TABLET 650 MG PO (02:26)
[2023-12-30] MEDS: Melatonin 3 MG TABLET 6 MG PO ×2 (02:26→23:32)
[2023-12-30 03:16] VITALS: BP 117/60; PULSE 101; RESP 20; TEMP 36.5; O2SAT 93
[2023-12-30 07:28] VITALS: BP 132/72; PULSE 93; RESP 16; TEMP 36; O2SAT 98
[2023-12-30 08:00] LABS: Glucose, Whole Blood 320 mg/dL (60-115)
[2023-12-30] MEDS: Gabapentin 300 MG CAPSULE PO ×3 (08:14→20:56)
[2023-12-30] MEDS: Furosemide 40 MG TABLET PO (08:14)
[2023-12-30] MEDS: 0.9 % Sodium Chloride Flush 3 ML SYRINGE IVFLUSH ×3 (08:14→23:30)
[2023-12-30] MEDS: OLANZapine ODT 10 MG TAB.RAPDIS TRANSLINGU (08:14)
[2023-12-30] MEDS: Sertraline HCL 50 MG TABLET PO (08:14)
[2023-12-30] MEDS: Insulin Lispro 100 UNIT/ML 3 ML VIAL SUBCUT ×4 (08:14→21:04)
[2023-12-30 11:03] LABS: Glucose, Whole Blood 163 mg/dL (60-115)
[2023-12-30 11:21] LABS: COVID-19 Test Negative (Negative); IDNOW Serial# 08D9AD1C
[2023-12-30 12:00] VITALS: BP 113/61; PULSE 98; RESP 18; TEMP 37; O2SAT 97
--- NOTE | 2023-12-30 12:17 | MHC.CARE ---
RAD Team conducted statewide bedsearch, referral being reviewed by Sal[facility], and Arvind Mancini. RAD team to f/u with facilities to see outcome
--- NOTE | 2023-12-30 13:15 | P.PNIM_ITS ---
Subjective Subjective Date of Service: 12/30/23 Interval History: Nasal congestion, denies shortness of breath, no chest pain, no lightheadedness, no dizziness, requesting for Glucerna, no acute events overnight, sitter at bedside. Review of Systems All other system reviewed and negative. Physical Exam 2 Vital Signs: Vital Signs: Last Vital Signs Temp 96.8 F 12/30/23 07:28 Pulse 93 12/30/23 07:28 Resp 16 12/30/23 07:28 BP 132/72 12/30/23 07:28 Pulse Ox 98 12/30/23 07:28 O2 Del Method Room Air 12/30/23 07:28 O2 Flow Rate 2 12/28/23 07:10 Oxygen Flow Rate 5 12/26/23 17:22 BMI result Body Mass Index 21.8 Const: Other: General awake alert x3, resting comfortably in no acute distress. Neck supple, no JVD. CVS regular rate rhythm, Respiratory lungs clear to auscultation, no crackles , no respiratory distress Gastrointestinal abdomen soft, non tender, bowel sounds audible, no guarding , no rigidity. Extremities trace lower extremity edema . Neuro non focal Skin no rash Psych appropriate affect Objective Data Active Medications Acetaminophen (Acetaminophen 325 Mg Tablet) 650 mg PO Q6H PRN PRN Reason: Pain, Mild (Pain Scale 1-3) Last Admin: 12/30/23 02:26 Dose: 650 mg Documented By: AMANDA Atorvastatin Calcium (Atorvastatin Calcium 20 Mg Tablet) 20 mg PO BEDTIME [facility] Last Admin: 12/29/23 21:02 Dose: 20 mg Documented By: AMANDA Cefuroxime Axetil (Cefuroxime Axetil 500 Mg Tablet) 500 mg PO Q12H [facility] Last Admin: 12/30/23 11:50 Dose: 500 mg Documented By: CRISTA Dextrose (Dextrose 50 % 25 Gm/50 Ml Syringe) 25 gm IVPUSH Q15M PRN; Protocol PRN Reason: per Hypoglycemia Standing Ord. Docusate Sodium (Docusate Sodium 100 Mg Capsule) 100 mg PO BID PRN PRN Reason: Constipation Enoxaparin Sodium (Enoxaparin Sodium 40 Mg/0.4 Ml Syringe) 40 mg SUBCUT Q24H [facility] Last Admin: 12/29/23 23:27 Dose: 40 mg Documented By: AMANDA Furosemide (Furosemide 40 Mg Tablet) 40 mg PO DAILY [facility]; Protocol Last Admin: 12/30/23 08:14 Dose: 40 mg Documented By: CRISTA Gabapentin (Gabapentin 300 Mg Capsule) 300 mg PO TID [facility] Last Admin: 12/30/23 08:14 Dose: 300 mg Documented By: CRISTA Glucose (Glucose Gel 15 Gm Gel..Gram.) 15 gm PO Q15M PRN; Protocol PRN Reason: per Hypoglycemia Standing Ord. Hydroxyzine HCl (Hydroxyzine Hcl 50 Mg Tablet) 50 mg PO TID PRN PRN Reason: Anxiety Insulin Glargine (Insulin Glargine,Hum.Rec.Anlog 100 Unit/Ml 10 Ml Vial) 35 unit SUBCUT BEDTIME [facility] Last Admin: 12/29/23 21:03 Dose: 35 unit Documented By: AMANDA Insulin Human Lispro (Insulin Lispro 100 Unit/Ml 3 Ml Vial) 0 unit SUBCUT QIDACHS [facility]; Protocol Last Admin: 12/30/23 11:50 Dose: 4 unit Documented By: CRISTA Melatonin (Melatonin 3 Mg Tablet) 6 mg PO BEDTIME PRN PRN Reason: Insomnia Last Admin: 12/30/23 02:26 Dose: 6 mg Documented By: AMANDA Nicotine Polacrilex (Nicotine Polacrilex 2 Mg Gum) 2 mg BUCCAL Q2H PRN PRN Reason: Nicotine Cravings Olanzapine (Olanzapine 10 Mg Tablet) 10 mg PO BEDTIME [facility] Last Admin: 12/29/23 21:02 Dose: 10 mg Documented By: AMANDA Olanzapine (Olanzapine Odt 10 Mg Tab.Rapdis) 10 mg TRANSLINGU DAILY [facility] Last Admin: 12/30/23 08:14 Dose: 10 mg Documented By: CRISTA Ondansetron HCl (Ondansetron Hcl 4 Mg/2 Ml Vial) 4 mg IVPUSH Q8H PRN PRN Reason: Nausea and Vomiting Sertraline HCl (Sertraline Hcl 50 Mg Tablet) 50 mg PO DAILY [facility] Last Admin: 12/30/23 08:14 Dose: 50 mg Documented By: CRISTA Sodium Chloride (0.9 % Sodium Chloride Flush 3 Ml Syringe) 3 ml IVFLUSH QSHIFT [facility] Last Admin: 12/30/23 08:14 Dose: 3 ml Documented By: CRISTA Trazodone HCl (Trazodone Hcl 100 Mg Tablet) 100 mg PO BEDTIME PRN PRN Reason: Insomnia Last Admin: 12/29/23 23:27 Dose: 100 mg Documented By: AMANDA Labs 12/29/23 06:30 12/29/23 06:30 Labs: Laboratory Results - last 24 hr 12/29/23 12/29/23 12/29/23 14:30 16:35 19:21 POC Glucose 331 H 317 H Stool Occult Blood NEGATIVE COVID-19 ([facility]) COVID-19 Clin Com 12/30/23 12/30/23 12/30/23 07:30 10:23 10:54 POC Glucose 320 H 163 H Stool Occult Blood COVID-19 ([facility]) Negative COVID-19 Clin Com See Note Microbiology Microbiology Results: Microbiology 12/27/23 15:21 Gram Stain - Final Sputum - Expectorated Sputum Culture - Final Assessment and Plan (1) Bilateral pleural effusion: Status: Acute (2) Pneumonia: Status: Acute (3) Acute hypoxic respiratory failure: Status: Acute (4) CHF exacerbation: Status: Acute Plan 48-year-old male with pertinent history of mood disorder, congestive heart failure unspecified EF, insulin-dependent diabetes mellitus with neuropathy, mixed hyperlipidemia who presents to the emergency department from [facility] for evaluation of fever, productive cough and dyspnea #. Acute hypoxemic respiratory failure and Sepsis due to community-acquired pneumonia/chf: On admission noted to have high-grade fever, tachycardia, tachypnea and lactic acidosis 3.5 Chest x-ray showed mild CHF/right upper lobe airspace disease s/p IV ceftriaxone and IV azithromycin for 4d, blood cultures negative, WBC normalized,clinically improved , placed on Ceftin 500 b.i.d. on 12/29, will dc abx on 12/31 #. Acute lactic acidosis due to sepsis resolved. #. Acute on chronic congestive heart failure with preserved EF. Clinically improved, BNP 772 on admission, improved to 400, s/p IV Lasix,neg 1600 ml, echocardiogram showed EF 60-65%, mild biatrial enlargement , indeterminate filling pressures resume home dose of po Lasix. CHF exacerbated by anemia and hypoalbuminemia Follow BMP #. Normocytic anemia likely chronic: Normal iron studies, slightly low iron likely due to poor nutrition, will place on iron supplement, stool guaiac neg, stable hemoglobin and hematocrit , patient not aware of history of anemia. #. Insulin-dependent diabetes mellitus with hyperglycemia: Continue Lantus 37 units, home dose, continue insulin sliding scale diabetic diet and monitor point of care #. Mood disorder: Continue home medications on Zyprexa and Seroquel both will hold Seroquel , continue all other home medications #. Suicidal ideation: seen by Psychiatry they recommend to continue sitter and hospitalization due to persistent suicidal ideation. Consulted care team, patient medically cleared for placement, care team searching for bed. #. Mixed hyperlipidemia: on Lipitor DVT prophylaxis: Lovenox Full code Patient will require continued inpatient hospitalization for safe disposition to psychiatric facility for persistent suicidal ideation. Quality Stroke Does the patient have a stroke diagnosis?: No VTE Prior VTE?: No VTE Risk Level:: Medical - moderate - high VTE Device Contraindication: Treatment Not Indicated VTE Drug Contraindication: N/A - Med Ordered
--- NOTE | 2023-12-30 14:14 | MHC.CM.PN ---
EMR reviewed and per MD rounds, pt is medically cleared, pending inpatient psych bed placement. CM will continue to follow.
[2023-12-30] MEDS: Ferrous Sulfate 324 MG TABLET.DR PO (14:29)
[2023-12-30 15:29] VITALS: BP 120/67; PULSE 101; RESP 16; TEMP 36.8; O2SAT 98
[2023-12-30 16:57] LABS: Glucose, Whole Blood 376 mg/dL (60-115)
[2023-12-30 19:00] VITALS: BP 114/61; PULSE 111; RESP 20; TEMP 37.1; O2SAT 95
[2023-12-30 19:11] LABS: Glucose, Whole Blood 234 mg/dL (60-115)
[2023-12-30] MEDS: OLANZapine 10 MG TABLET PO (20:56)
[2023-12-30] MEDS: Insulin Glargine,Hum.rec.anlog 100 UNIT/ML 10 ML VIAL 37 UNIT SUBCUT (20:56)
[2023-12-30] MEDS: Atorvastatin Calcium 20 MG TABLET PO (20:56)
[2023-12-30 20:57] LABS: Glucose, Whole Blood 291 mg/dL (60-115)
[2023-12-30] MEDS: traZODone HCL 100 MG TABLET PO (22:04)
[2023-12-30] MEDS: Enoxaparin Sodium 40 MG/0.4 ML SYRINGE SUBCUT (22:05)
--- NOTE | 2023-12-30 22:38 | MHC.CARE ---
RAD Team conducted statewide bedsearch, referral being reviewed by [facility], [facility] and [facility]. RAD team to f/u with facilities to see outcome
[2023-12-30 23:13] VITALS: BP 116/65; PULSE 99; RESP 18; TEMP 36.3; O2SAT 94
[2023-12-30] MEDS: hydrOXYzine HCL 50 MG TABLET PO (23:32)
[2023-12-31 03:36] VITALS: BP 114/63; PULSE 96; RESP 20; TEMP 36.9; O2SAT 93
[2023-12-31 05:21] LABS: Glucose, Whole Blood 307 mg/dL (60-115)
[2023-12-31 06:51] LABS: Glucose, Whole Blood 328 mg/dL (60-115)
[2023-12-31 06:53] VITALS: BP 95/63; PULSE 98; RESP 18; TEMP 37.1; O2SAT 95
[2023-12-31] MEDS: OLANZapine ODT 10 MG TAB.RAPDIS TRANSLINGU (08:19)
[2023-12-31] MEDS: Insulin Lispro 100 UNIT/ML 3 ML VIAL SUBCUT ×5 (08:19→21:20)
[2023-12-31] MEDS: Ferrous Sulfate 324 MG TABLET.DR PO (08:20)
[2023-12-31] MEDS: Sertraline HCL 50 MG TABLET PO (08:20)
[2023-12-31] MEDS: Furosemide 40 MG TABLET PO (08:20)
[2023-12-31] MEDS: Gabapentin 300 MG CAPSULE PO ×3 (08:20→21:19)
[2023-12-31] MEDS: 0.9 % Sodium Chloride Flush 3 ML SYRINGE IVFLUSH ×3 (08:20→23:43)
[2023-12-31] MEDS: Acetaminophen 325 MG TABLET 650 MG PO (08:21)
[2023-12-31 10:53] VITALS: BP 119/69; PULSE 94; RESP 18; TEMP 36.7; O2SAT 97
[2023-12-31 10:54] LABS: Glucose, Whole Blood 197 mg/dL (60-115)
[2023-12-31] MEDS: cefuroxime axetiL 500 MG TABLET PO (11:58)
--- NOTE | 2023-12-31 12:17 | MHC.CARE ---
Rad Team conducted statewide bedsearch conducted, referral is being reviewed by Rubia Dhaliwal, [facility], [facility], [facility]te[facility], [facility], [facility], RAD Team to f/u with facilities to see outcome and will continue bedsearch tomorrow (01/01) if deemed necessary
--- NOTE | 2023-12-31 14:04 | P.PNIM_ITS ---
Subjective Subjective Date of Service: 12/31/23 Interval History: seen and examined this morning follow up for pneumonia, CHF, SI no sob Review of Systems Review of Systems: Yes all other systems are reviewed and are negative Constitutional Constitutional: Denies chills and Denies fever(s) Cardiovascular Cardiovascular: Denies chest pain, Denies palpitations and Denies dyspnea Respiratory Respiratory: Denies dyspnea Endocrine Endocrine: Denies palpitations Physical Exam 2 Vital Signs: Vital Signs: Last Vital Signs Temp 98.0 F 12/31/23 10:53 Pulse 94 12/31/23 10:53 Resp 18 12/31/23 10:53 BP 119/69 12/31/23 10:53 Pulse Ox 97 12/31/23 10:53 O2 Del Method Room Air 12/31/23 10:53 O2 Flow Rate 2 12/28/23 07:10 Oxygen Flow Rate 5 12/26/23 17:22 BMI result Body Mass Index 21.8 Const: General: cooperative, comfortable, no acute distress, alert and awake Nutritional Appearance: average body habitus Orientation/consciousness: p atient oriented x3 Resp: Effort & Inspection: normal respiratory effort, able to speak in complete sentences, no respiratory distress and no use of accessory muscles Cardio: Rate: regular rate GI: Inspection: No distended Palpation (GI): Soft to palpation Neuro: General: patient oriented x3, moves all extremities and CN's II-XI intact bilaterally Extrem: Other: trace leg edema Objective Data Active Medications Acetaminophen (Acetaminophen 325 Mg Tablet) 650 mg PO Q6H PRN PRN Reason: Pain, Mild (Pain Scale 1-3) Last Admin: 12/31/23 08:21 Dose: 650 mg Documented By: TARYN Atorvastatin Calcium (Atorvastatin Calcium 20 Mg Tablet) 20 mg PO BEDTIME [facility] Last Admin: 12/30/23 20:56 Dose: 20 mg Documented By: ZHANG Cefuroxime Axetil (Cefuroxime Axetil 500 Mg Tablet) 500 mg PO Q12H [facility] Last Admin: 12/31/23 11:58 Dose: 500 mg Documented By: TARYN Dextrose (Dextrose 50 % 25 Gm/50 Ml Syringe) 25 gm IVPUSH Q15M PRN; Protocol PRN Reason: per Hypoglycemia Standing Ord. Docusate Sodium (Docusate Sodium 100 Mg Capsule) 100 mg PO BID PRN PRN Reason: Constipation Enoxaparin Sodium (Enoxaparin Sodium 40 Mg/0.4 Ml Syringe) 40 mg SUBCUT Q24H [facility] Last Admin: 12/30/23 22:05 Dose: 40 mg Documented By: ZHANG Ferrous Sulfate (Ferrous Sulfate 324 Mg Tablet.Dr) 324 mg PO DAILY [facility] Last Admin: 12/31/23 08:20 Dose: 324 mg Documented By: TARYN Furosemide (Furosemide 40 Mg Tablet) 40 mg PO DAILY [facility]; Protocol Last Admin: 12/31/23 08:20 Dose: 40 mg Documented By: TARYN Gabapentin (Gabapentin 300 Mg Capsule) 300 mg PO TID [facility] Last Admin: 12/31/23 08:20 Dose: 300 mg Documented By: TARYN Glucose (Glucose Gel 15 Gm Gel..Gram.) 15 gm PO Q15M PRN; Protocol PRN Reason: per Hypoglycemia Standing Ord. Hydroxyzine HCl (Hydroxyzine Hcl 50 Mg Tablet) 50 mg PO TID PRN PRN Reason: Anxiety Last Admin: 12/30/23 23:32 Dose: 50 mg Documented By: ZENA Insulin Glargine (Insulin Glargine,Hum.Rec.Anlog 100 Unit/Ml 10 Ml Vial) 37 unit SUBCUT BEDTIME [facility] Last Admin: 12/30/23 20:56 Dose: 37 unit Documented By: ZHANG Insulin Human Lispro (Insulin Lispro 100 Unit/Ml 3 Ml Vial) 0 unit SUBCUT QIDACHS [facility]; Protocol Last Admin: 12/31/23 11:59 Dose: 4 unit Documented By: TARYN Melatonin (Melatonin 3 Mg Tablet) 6 mg PO BEDTIME PRN PRN Reason: Insomnia Last Admin: 12/30/23 23:32 Dose: 6 mg Documented By: ZENA Nicotine Polacrilex (Nicotine Polacrilex 2 Mg Gum) 2 mg BUCCAL Q2H PRN PRN Reason: Nicotine Cravings Olanzapine (Olanzapine 10 Mg Tablet) 10 mg PO BEDTIME [facility] Last Admin: 12/30/23 20:56 Dose: 10 mg Documented By: ZHANG Olanzapine (Olanzapine Odt 10 Mg Tab.Rapdis) 10 mg TRANSLINGU DAILY [facility] Last Admin: 12/31/23 08:19 Dose: 10 mg Documented By: HO.CTORRZ Ondansetron HCl (Ondansetron Hcl 4 Mg/2 Ml Vial) 4 mg IVPUSH Q8H PRN PRN Reason: Nausea and Vomiting Sertraline HCl (Sertraline Hcl 50 Mg Tablet) 50 mg PO DAILY [facility] Last Admin: 12/31/23 08:20 Dose: 50 mg Documented By: CTORRZ Sodium Chloride (0.9 % Sodium Chloride Flush 3 Ml Syringe) 3 ml IVFLUSH QSHIFT [facility] Last Admin: 12/31/23 08:20 Dose: 3 ml Documented By: CTORRBriseyda Trazodone HCl (Trazodone Hcl 100 Mg Tablet) 100 mg PO BEDTIME PRN PRN Reason: Insomnia Last Admin: 12/30/23 22:04 Dose: 100 mg Documented By: ZHANG Labs 12/29/23 06:30 12/29/23 06:30 Labs: Laboratory Results - last 24 hr 12/30/23 12/30/23 12/30/23 16:42 19:07 20:54 POC Glucose 376 H* 234 H 291 H 12/31/23 12/31/23 12/31/23 05:17 06:48 10:51 POC Glucose 307 H 328 H 197 H Assessment and Plan (1) Major depression with psychotic features: Status: Acute (2) Pneumonia: Status: Acute (3) CHF exacerbation: Status: Acute Plan This is a 48-year-old male with history of mood disorder, congestive heart failure unspecified EF, insulin-dependent diabetes mellitus with neuropathy, mixed hyperlipidemia who presents to the emergency department from [facility] for evaluation of fever, productive cough and dyspnea found to have pneumonia and CHF Acute hypoxemic respiratory failure and Sepsis due to community-acquired pneumonia/chf: On admission noted to have high-grade fever, tachycardia, tachypnea and lactic acidosis 3.5 - resolved Chest x-ray showed mild CHF/right upper lobe airspace disease s/p IV ceftriaxone and IV azithromycin for 4d, transitioned to Ceftin 500 b.i.d. on 12/29, end date 12/31 blood cultures negative, WBC normalized, clinically improved Acute lactic acidosis due to sepsis resolved. Acute on chronic congestive heart failure with preserved EF. echocardiogram showed EF 60-65%, mild biatrial enlargement, indeterminate filling pressures Clinically improved, BNP 772 on admission, improved to 400 s/p IV Lasix, neg 1600 ml Transitioned back to oral Lasix, (increased from baseline 20 mg) CHF likely exacerbated by anemia and hypoalbuminemia Normocytic anemia likely chronic: Normal iron studies, slightly low iron likely due to poor nutrition, will place on iron supplement, stool guaiac neg, stable hemoglobin and hematocrit Insulin-dependent diabetes mellitus with hyperglycemia: Continue Lantus 37 units, home dose, continue insulin sliding scale diabetic diet and monitor POCs Mood disorder: Continue home medications on Zyprexa and Seroquel both will hold Seroquel , continue all other home medications Suicidal ideation: seen by Psychiatry they recommend to continue sitter and hospitalization due to persistent suicidal ideation. Consulted care team, patient medically cleared for placement, care team searching for bed. Mixed hyperlipidemia: continue Lipitor DVT prophylaxis: Lovenox Full code Patient will require continued inpatient hospitalization for safe disposition to psychiatric facility for persistent suicidal ideation. Quality Stroke Does the patient have a stroke diagnosis?: No VTE Prior VTE?: No VTE Risk Level:: Medical - moderate - high VTE Device Contraindication: Treatment Not Indicated VTE Drug Contraindication: N/A - Med Ordered
[2023-12-31 15:46] VITALS: BP 131/72; PULSE 100; RESP 20; TEMP 36.9; O2SAT 97
[2023-12-31 16:30] LABS: Glucose, Whole Blood 435 mg/dL (60-115)
[2023-12-31 16:30] LABS: Glucose, Whole Blood 405 mg/dL (60-115)
[2023-12-31 19:55] VITALS: BP 132/64; PULSE 103; RESP 20; TEMP 36.4; O2SAT 94
[2023-12-31 20:25] LABS: Glucose, Whole Blood 307 mg/dL (60-115)
[2023-12-31] MEDS: Atorvastatin Calcium 20 MG TABLET PO (21:19)
[2023-12-31] MEDS: OLANZapine 10 MG TABLET PO (21:19)
[2023-12-31] MEDS: Insulin Glargine,Hum.rec.anlog 100 UNIT/ML 10 ML VIAL 37 UNIT SUBCUT (21:20)
[2023-12-31] MEDS: traZODone HCL 100 MG TABLET PO (21:23)
[2023-12-31] MEDS: Enoxaparin Sodium 40 MG/0.4 ML SYRINGE SUBCUT (23:44)
[2024-01-01] VITALS: BP 112/69; PULSE 90; RESP 20; TEMP 36.5; O2SAT 95
[2024-01-01 03:02] VITALS: BP 104/55; PULSE 99; RESP 20; TEMP 36.6; O2SAT 98
[2024-01-01 07:09] LABS: Baso%MD 0.3 %; Hematocrit 25.1 % (42.0-52.0); Hemoglobin 8.2 g/dl (14.0-18.0); Mean Corpuscular HGB Conc 32.7 g/dl (31.0-36.0); Mean Corpuscular Hemoglobin 29.1 pg (27.0-33.0); Mean Platelet Volume 8.8 fL (9.4-12.4); Mono%MD 7.1 %; Neut%MD 66.6 %; Platelet Count 588 X10*3/uL (160-400); Red Blood Count 2.82 X10*6/uL (4.60-5.80); Red Cell Distribution Width 16.3 % (11.0-16.0); White Blood Count 11.5 X10*3/uL (4.8-10.8)
[2024-01-01 07:29] VITALS: BP 125/70; PULSE 105; RESP 16; TEMP 36.9; O2SAT 96
[2024-01-01 07:33] LABS: Lactate Dehydrogenase 255 U/L (118-273)
[2024-01-01 07:37] LABS: Glucose, Whole Blood 273 mg/dL (60-115)
[2024-01-01 07:49] LABS: Ferritin 256 ng/mL (20-250)
[2024-01-01 07:51] LABS: Atypical Lymph Absolute Manual 0.1 x10*3/uL; Atypical Lymphs Percent Manual 1 % (0-6); Lymphocytes Absolute Manual 2.3 X10*3/uL (1.2-4.9); Lymphocytes Percent Manual 20 % (20-40); Monocytes Absolute Manual 0.9 X10*3/uL (0.1-1.2); Monocytes Percent Manual 8 % (2-11); Neutrophils Percent Manual 71 % (45-73)
[2024-01-01 07:52] LABS: Band Neutrophils Percent 0 % (3-5); Neutrophils Absolute Manual 8.2 X10*3/uL (2.0-8.3); Nucleated Red Blood Cells 1 /100WBC (0-0)
[2024-01-01] MEDS: Insulin Lispro 100 UNIT/ML 3 ML VIAL SUBCUT ×3 (07:53→16:58)
[2024-01-01] MEDS: Sertraline HCL 50 MG TABLET PO (07:53)
[2024-01-01] MEDS: OLANZapine ODT 10 MG TAB.RAPDIS TRANSLINGU (07:53)
[2024-01-01] MEDS: Ferrous Sulfate 324 MG TABLET.DR PO (07:53)
[2024-01-01] MEDS: Furosemide 40 MG TABLET PO (07:53)
[2024-01-01 07:54] LABS: Hypochromasia 1+ (5-14) /OIF; Platelet Estimate INCREASED (NORMAL); Platelet Morphology Comment NORMAL; Polychromasia 2+ (3-5) /OIF; RBC Morphology NOTED
[2024-01-01] MEDS: Gabapentin 300 MG CAPSULE PO ×2 (07:54→15:07)
[2024-01-01] MEDS: Acetaminophen 325 MG TABLET 650 MG PO ×2 (07:54→14:43)
[2024-01-01] MEDS: 0.9 % Sodium Chloride Flush 3 ML SYRINGE IVFLUSH (07:59)
[2024-01-01 08:03] LABS: Folate 9.8 ng/mL (> or = 4.0); Vitamin B12 720 pg/mL (200-900)
[2024-01-01 11:07] LABS: Glucose, Whole Blood 148 mg/dL (60-115)
[2024-01-01 11:53] VITALS: BP 120/61; PULSE 101; RESP 16; TEMP 36.9; O2SAT 96
--- NOTE | 2024-01-01 11:58 | MHC.CM.PN ---
EMR reviewed and per MD rounds, pt is not medically cleared for D/C due to pending inpatient psych bed placement. CM will continue to follow.
--- NOTE | 2024-01-01 12:07 | P.DS_ITS ---
DS: Providers Provider Date of Service: 01/01/24 Date of admission: 12/26/23 22:18 Date of discharge: 01/01/24 Primary care physician: Savanna Huerta Consults: 12/26/23 22:17 Consult for Sitter Routine Reason for consultation: SI Has provider been notified: No Consult to Psychiatry Routine Consulting Provider: Psych Covering Reason for consultation: SI 12/29/23 10:36 Consult to Care Team Routine Comment: Reason for consultation: suicidal ideation Attending physician on discharge: Andrew Bustillos Discharging clinician: Wandy Arreaga DS: Diagnosis Discharge Diagnosis (1) Major depression with psychotic features: Status: Acute (2) Pneumonia: Status: Acute (3) CHF exacerbation: Status: Acute DS: Summary Hospital Course Hospital Course: From H&P on the day of admission This is a 48-year-old male with pertinent history of mood disorder, congestive heart failure unspecified EF, insulin- dependent diabetes mellitus with neuropathy, mixed hyperlipidemia who presents to the emergency department from [facility] for evaluation of fever, productive cough and dyspnea. Patient was residing at [facility] for suicidal ideation. Patient does not know when his symptoms started but states he has been having productive cough with yellowish sputum production. Also has been having associated fevers and chills. Admits dyspnea and endorses orthopnea. No chest discomfort, palpitations, abdominal pain, changes in urinary or bowel habits. He was found to be hypoxemic as per EMS and placed on supplemental oxygen. In the emergency department, patient was found to be septic and requiring 5 L supplemental oxygen. BNP found to be elevated Acute hypoxemic respiratory failure and Sepsis due to community-acquired pneumonia/chf: On admission noted to have high-grade fever, tachycardia, tachypnea and lactic acidosis 3.5. Now resolved Chest x-ray showed mild CHF/right upper lobe airspace disease. Initially treated with IV ceftriaxone and IV azithromycin for 4d, then was transitioned to po Ceftin 500 on 12/29 and completed course of antibiotics on 12/31. blood cultures have remained negative, WBC normalized, clinically improved Acute lactic acidosis due to sepsis resolved. Acute on chronic congestive heart failure with preserved EF. echocardiogram showed EF 60-65%, mild biatrial enlargement, indeterminate filling pressures. Treated with IV lasix. Clinically improved, BNP 772 on admission, improved to 400. Ovearll neg 1600 ml. Transitioned back to oral Lasix, (increased from baseline 20 mg). CHF likely exacerbated by anemia and hypoalbuminemia. Recommend low sodium diet, daily weights and outpatient follow up with PCP. Normocytic anemia likely chronic: Normal iron studies, stool guaiac neg, stable hemoglobin and hematocrit. B12, folate and LDH normal. Peripheral smear benign. Iron slightly low possibly due to poor nutrition, will place on iron supplement, Likely component of chronic disease. immunofixation pending. Insulin-dependent diabetes mellitus with hyperglycemia: Continue Lantus 37 units, home dose, continue insulin sliding scale diabetic diet and monitor POCs Mood disorder: Continued on home medications on Zyprexa and sertraline. seroquel held during admission. Suicidal ideation: seen by Psychiatry they recommend to continue sitter and hospitalization due to persistent suicidal ideation. Seen by ophelia and recommendation for inpatient psych unit made, patient will be transferred to inpatient psych floor. Time Attestation Discharge coordination time: Greater than 30 minutes Quality: Safe Use of Opioids Does Pt have an Active Cancer Diagnosis on the Problem List?: No Quality: Stroke Does the patient have a stroke diagnosis?: No Physical Exam Vital Signs: Vital Signs: Last Vital Signs Temp 98.4 F 01/01/24 11:53 Pulse 101 H 01/01/24 11:53 Resp 16 01/01/24 11:53 BP 120/61 01/01/24 11:53 Pulse Ox 96 01/01/24 11:53 O2 Del Method Room Air 01/01/24 11:53 O2 Flow Rate 2 12/28/23 07:10 Oxygen Flow Rate 5 12/26/23 17:22 BMI result Body Mass Index 21.8 Const: General: cooperative, comfortable, no acute distress, alert and awake Nutritional Appearance: average body habitus Orientation/consciousness: patient oriented x3 Resp: Effort & Inspection: normal respiratory effort, able to speak in complete sentences, no respiratory distress and no use of accessory muscles Cardio: Rate: regular rate GI: Inspection: No distended Palpation (GI): Soft to palpation Neuro: General: patient oriented x3, moves all extremities and CN's II-XI intact bilaterally Extrem: Other: trace leg edema DS: Data Data Completed and Pending Labs on day of discharge: Laboratory Results - last 24 hr 12/31/23 12/31/23 12/31/23 16:21 16:26 19:58 WBC RBC Hgb Hct MCV MCH MCHC RDW Plt Count MPV Absolute Nucleated RBC Nucleated RBC % (auto) Neutrophils % (Manual) Band Neutrophils % Lymphocytes % (Manual) Atypical Lymphs % (Man) Monocytes % (Manual) Abs Neuts (Manual) Lymphocytes # (Manual) Atyp Lymphs # (Manual) Monocytes # (Manual) Nucleated RBCs Platelet Estimate Plt Morphology Comment RBC Morphology Polychromasia Hypochromasia Smear Path Review POC Glucose 405 H* 435 H* 307 H Ferritin Lactate Dehydrogenase Vitamin B12 Folate 01/01/24 01/01/24 01/01/24 06:37 07:32 11:03 WBC 11.5 H RBC 2.82 L Hgb 8.2 L Hct 25.1 L MCV 89.0 MCH 29.1 MCHC 32.7 RDW 16.3 H Plt Count 588 H MPV 8.8 L Absolute Nucleated RBC 0.120 H Nucleated RBC % (auto) 1.0 H Neutrophils % (Manual) 71 Band Neutrophils % 0 L Lymphocytes % (Manual) 20 Atypical Lymphs % (Man) 1 Monocytes % (Manual) 8 Abs Neuts (Manual) 8.2 Lymphocytes # (Manual) 2.3 Atyp Lymphs # (Manual) 0.1 Monocytes # (Manual) 0.9 Nucleated RBCs 1 H Platelet Estimate INCREASED Plt Morphology Comment NORMAL RBC Morphology NOTED Polychromasia 2+ (3-5) Hypochromasia 1+ (5-14) Smear Path Review SEE NOTE POC Glucose 273 H 148 H Ferritin 256 H Lactate Dehydrogenase 255 Vitamin B12 720 Folate 9.8 Discharge Plan Discharge Patient Disposition: Xfer Psychiatric Hosp Discharge Diagnosis: pneumonia acute on chronic HFpEF Referrals: Physician,Unknown J [Physician] - 1 Week Discharge Medications: New furosemide 40 mg Tablet 40 mg PO DAILY Qty: 30 0RF Protocol: Hold for SBP< HOLD for SBP < : 90 Continued atorvastatin 20 mg 20 mg PO BEDTIME famotidine 20 mg 20 mg PO DAILY gabapentin 300 mg 300 mg PO TID insulin glargine 37 unit 37 units subcut BEDTIME insulin lispro 100 units/ml auto-injector See Protocol subcut QIDACHS Protocol: Insulin Correction Scale Less than or equal to 110 ---- Give (units): 0 111 to 150 Give (units): 0 151 to 200 Give (units): 2 201 to 250 Give (units): 4 251 to 300 Give (units): 6 301 to 350 Give (units): 8 Greater than 350 Give (units): 10 Call MD if Blood Glucose > : 350 olanzapine 10 mg tablet 10 mg PO DAILY olanzapine 10 mg tablet 10 mg PO BEDTIME sertraline 50 mg tablet 50 mg PO DAILY Colace 100 mg capsule 100 mg PO BID PRN (Reason: Constipation) hydroxyzine pamoate 50 mg capsule 50 mg PO TID PRN (Reason: Anxiety) melatonin 6 mg tablet 6 mg PO BEDTIME PRN (Reason: Sleep) nicotine (polacrilex) 2 mg gum 2 mg PO Q2H PRN (Reason: Nicotine Cravings) ondansetron 4 mg tablet 4 mg PO Q6H PRN (Reason: Nausea And Vomiting) trazodone 100 mg tablet 100 mg PO BEDTIME PRN (Reason: Insomnia) acetaminophen 325 mg Tablet 650 mg PO Q4H PRN (Reason: Pain, Mild) eucalyptus-menthol Lozenge 3.1 mg MUCOUS MEMBRANE Q2H PRN (Reason: Sore Throat) calcium carbonate [Calcium 500] 500 mg calcium (1,250 mg) Tablet,Chewable 500 mg PO Q4H PRN (Reason: Heartburn) loperamide 2 mg Capsule 2 mg PO Q6H PRN (Reason: AFTER EVERY LOOSE STOOL ) guaifenesin 600 mg Tablet Extended Release 12hr 1,200 mg PO Q12H PRN (Reason: Cough) Rx Instructions: NOT TO EXCEED 2400 MG IN 24 HRS Discontinued furosemide 20 mg 20 mg PO DAILY quetiapine 100 mg Tablet 100 mg PO BEDTIME Discharge Orders: Discharge Order (Routine); Ordered 01/01/24 Ordered By: Wandy Arreaga Activity on Discharge: As tolerated Stand Alone Forms: Patient Portal Discharge page Care Plan Goals: See below Health Concerns: Pneumonia CHF Plan of Treatment: Completed course of antibiotics during hospitalization Dose of Lasix increased from 20 mg to 40 mg daily Recommend diabetic, low-sodium diet Assessment: See discharge summary
[2024-01-01 16:00] VITALS: BP 135/68; PULSE 106; RESP 16; TEMP 36.9; O2SAT 94
[2024-01-01 16:42] LABS: Glucose, Whole Blood 426 mg/dL (60-115)
[2024-01-05 12:29] LABS: IgA 533 mg/dL (47-310); IgG 1306 mg/dL (600-1640); IgM 75 mg/dL (50-300)
== END 2024-01-01 17:53 | DRG 751 ==
LOC: HO.ED 21:59 → HO.EDOVER 22:41 → HO.IMC 12-27 16:20
PROVIDERS: Hospitalist; Admitting Provider Student in an Organized Health Care Education/Training Program; Emergency Provider Student in an Organized Health Care Education/Training Program; PCP Registered Nurse Emergency; Visit Provider Physician Assistant Medical
DX: F32.3 Major depressive disorder, single episode, severe with psychotic features (principal); J96.01 Acute respiratory failure with hypoxia; A41.9 Sepsis, unspecified organism; I50.33 Acute on chronic diastolic (congestive) heart failure; E87.21 Acute metabolic acidosis; J18.9 Pneumonia, unspecified organism; E88.09 Other disorders of plasma-protein metabolism, not elsewhere classified; R45.851 Suicidal ideations; E11.40 Type 2 diabetes mellitus with diabetic neuropathy, unspecified; D64.9 Anemia, unspecified; E11.65 Type 2 diabetes mellitus with hyperglycemia; E78.2 Mixed hyperlipidemia; F17.210 Nicotine dependence, cigarettes, uncomplicated; Z71.6 Tobacco abuse counseling; Z59.01 Sheltered homelessness; Z20.822 Contact with and (suspected) exposure to COVID-19; Z79.4 Long term (current) use of insulin; Z79.899 Other long term (current) drug therapy
CPT/HCPCS: 36415; 71045; 71275; 80048; 80053; 80307; 81001; 82010; 82272; 82607; 82728; 82746; 82784; 82803; 82947; 83540; 83605; 83615; 83880; 85007; 85025; 85027; 86334; 87040; 87070; 87086; 87205; 87502; 87635; 93005; 93306; 93356; 99285; J0456; J0696; J1650; J1940; J2543; Q9967; S9485

== ENCOUNTER → 2023-12-26 17:19 | Outpatient (BNV) | payer MEDICAID, SELFPAY | PROVIDERS: Admitting Provider Student in an Organized Health Care Education/Training Program; Emergency Provider Student in an Organized Health Care Education/Training Program; Visit Provider Internal Medicine Cardiovascular Disease | DX: R06.02 Shortness of breath (principal) | CPT/HCPCS: 93010 ==

== ENCOUNTER → 2023-12-26 19:31 | Outpatient (BNV) | payer MEDICAID, SELFPAY | PROVIDERS: Emergency Provider Student in an Organized Health Care Education/Training Program; Visit Provider Student in an Organized Health Care Education/Training Program | DX: J96.01 Acute respiratory failure with hypoxia (principal); A41.9 Sepsis, unspecified organism; J18.9 Pneumonia, unspecified organism; I50.9 Heart failure, unspecified; J90 Pleural effusion, not elsewhere classified; E11.65 Type 2 diabetes mellitus with hyperglycemia | CPT/HCPCS: 99223; 99232; 99233; 99239 ==

== ENCOUNTER 2023-12-26 22:18 | Outpatient (BNV) | payer MEDICAID, SELFPAY | END 2023-12-28 07:00 | PROVIDERS: Admitting Provider Student in an Organized Health Care Education/Training Program; Emergency Provider Student in an Organized Health Care Education/Training Program; Visit Provider Internal Medicine Cardiovascular Disease | DX: I36.1 Nonrheumatic tricuspid (valve) insufficiency (principal) | CPT/HCPCS: 93306 ==

== ENCOUNTER → 2023-12-26 22:18 | Outpatient (BNV) | payer OTHER, SELFPAY | PROVIDERS: Admitting Provider Student in an Organized Health Care Education/Training Program; Emergency Provider Student in an Organized Health Care Education/Training Program; Visit Provider Psychiatry & Neurology Psychiatry | DX: F32.3 Major depressive disorder, single episode, severe with psychotic features (principal) | CPT/HCPCS: 99232 ==

== ENCOUNTER 2024-01-01 18:20 | Inpatient (IN) | payer MEDICAID, SELFPAY ==
[2024-01-01 18:36] VITALS: BP 131/66; PULSE 104; RESP 18; TEMP 36.7; O2SAT 96
[2024-01-01 20:26] LABS: Glucose, Whole Blood 322 mg/dL (60-115)
[2024-01-01 20:31] VITALS: BMI 22.3
[2024-01-01 21:40] VITALS: BP 138/73; PULSE 93; RESP 16; TEMP 36.5; O2SAT 96
[2024-01-01] MEDS: Insulin Glargine,Hum.rec.anlog 100 UNIT/ML 10 ML VIAL 37 UNIT SUBCUT (21:56)
[2024-01-01] MEDS: Insulin Lispro 100 UNIT/ML 3 ML VIAL SUBCUT (21:57)
[2024-01-01] MEDS: Atorvastatin Calcium 20 MG TABLET PO (21:58)
[2024-01-01] MEDS: OLANZapine 10 MG TABLET PO (21:58)
[2024-01-01] MEDS: Gabapentin 300 MG CAPSULE PO (21:59)
[2024-01-01] MEDS: traZODone HCL 50 MG TABLET PO (22:51)
[2024-01-02] MEDS: traZODone HCL 50 MG TABLET PO (00:34)
--- NOTE | 2024-01-02 02:01 | PC.ADMIT ---
this is the first [facility] admission for this 48 year old male. legal CV. dx major depressive d/o, single episode, severe with psychotic features. per MD order is on 5 minute checks with unlocked bathroom. patient with history of both behavioral health inpatient admissions as well as substance use d/o care. patient arrived from the medical floor at 1835 after nurse to nurse and doc to doc reports done. patient is s/p treatment of sepsis, pleural effusion, exacerbation of CHF and is an insulin dependent diabetic. prior to treatment on the medical floor patient had been at [facility] for treatment of suicidal thinking as well as for cocaine use d/o. admit to [facility] was approximately on 12/26/23. presents with depressed mood/affect. fully oriented. reports + A/V hallucinations. reports +SI thinking with no identified plan or intent as per his statement ''I feel safe in the hospital'' endorses long HX of cocaine use. cooperative to admission assessment. medications reconciled with medical record and patient input. safety tool and treatment plan initiated with patient input. no agitation or restlessness noted. patient does have to be monitored for food intake, although reports weight loss is a diabetic with hyperglycemia and appears to have a good appetite this evening. did accept re direction not to eat a sorbet from the kitchen when witnessed by t/w as he had taken a cup from the freezer. he later expressed thanks for the re direction and offered alternatives. patient has no income as he reports he was on disability but is no longer and asking for assistance. informed that the department may be able to offer phone numbers or emails to peruse this but he would have to follow up when discharged. reports he is homeless but stays with friends. reports all his belongings are at [facility].
[2024-01-02] MEDS: hydrOXYzine HCL 25 MG TABLET PO (02:30)
[2024-01-02] MEDS: Melatonin 3 MG TABLET 6 MG PO (02:30)
[2024-01-02 07:50] VITALS: BP 134/70; PULSE 97; RESP 14; TEMP 36.7; O2SAT 94
[2024-01-02 08:07] LABS: Glucose, Whole Blood 324 mg/dL (60-115)
[2024-01-02 08:29] LABS: Alanine Aminotransferase 30 U/L (0-40); Alkaline Phosphatase 187 U/L (39-117); Anion Gap 13 (12-20); Aspartate Amino Transferase 33 U/L (5-37); Bilirubin Total 0.1 mg/dL (0.0-1.0); Blood Urea Nitrogen 36 mg/dL (9-16); Calcium 9.4 mg/dL (8.4-10.2); Carbon Dioxide 29 mmol/L (22-29); Chloride 100 mmol/L (96-108); Cholesterol 165 mg/dL (<200); Creatinine Clr Calc Pharmacy 88.3; Estimated Glomerular Filt Rate > 60; Glucose Fasting 350 mg/dL (60-99); HDL Cholesterol 58 mg/dL (>40); LDL Cholesterol Calculated 90 mg/dL (<100); Potassium 4.5 mmol/L (3.3-5.1); Sodium 137 mmol/L (135-145); Total Protein 7.1 g/dL (6.5-8.0); Triglycerides 86 mg/dL (<150)
[2024-01-02] MEDS: Insulin Lispro 100 UNIT/ML 3 ML VIAL SUBCUT ×5 (09:00→22:02)
[2024-01-02] MEDS: Famotidine 20 MG TABLET PO (09:01)
[2024-01-02] MEDS: Gabapentin 300 MG CAPSULE PO ×3 (09:01→22:00)
[2024-01-02] MEDS: Sertraline HCL 50 MG TABLET PO (09:01)
[2024-01-02] MEDS: Furosemide 40 MG TABLET PO (09:01)
[2024-01-02] MEDS: OLANZapine 10 MG TABLET PO ×2 (09:01→22:01)
--- NOTE | 2024-01-02 12:22 | P.HPPS_ITS ---
HPI Date of Service: 01/02/24 Chief Complaint: suicidal Sources of Information: patient interviewed, chart reviewed and crisis/core team assessment reviewed HPI Subjective Notes: Farmer Warning and Conditional Voluntary Narrative: The patient is a 48-year-old male, with a past history of COPD, CHF admitted initially to [facility] and transfer since he was having respiratory symptoms. He was admitted initially to [facility] due to pleural effusion and sign and symptoms of CHF uncontrolled. The patient was been medically stable and transferring to this facility for psychiatric stabilization. On transfer, his vital signs were stable he reported feeling much better still with some suicidal thoughts. The patient was being followed by the psychiatric team while he was on [facility]. On interview, the patient reports depressive symptoms elicited by depressed mood, anhedonia, lack of energy, feelings of hopelessness but no active suicidal ideation. The staff has noticed that he had good appetite and he slept well last night. He has been fully compliant with treatment. He signed himself into the facility was conditional voluntary. While he was interview the patient reported that he was feeling very tired and he was superficially cooperative with the interview. Past Psychiatric History: Several inpatient hospitalizations. No recent outpatient connections Medical Evaluation Reviewed: Yes [facility] Medical History Severe major depression with psychotic features H/O insulin dependent diabetes mellitus Family History: Unknown Substance History: Denies Trauma History: Unknown Diagnostics Vital Signs (24Hr): Vital Signs - 24 hr 01/01/24 18:36 01/01/24 18:36 01/01/24 21:40 Temperature 98.0 F 98.0 F 97.7 F Pulse Rate 104 H 104 H 93 Respiratory Rate 18 18 16 Blood Pressure 131/66 131/66 138/73 Pulse Oximetry 96 96 96 Oxygen Delivery Method Room Air Room Air Room Air 01/02/24 07:50 Temperature 98.0 F Pulse Rate 97 Respiratory Rate 14 Blood Pressure 134/70 Pulse Oximetry 94 Oxygen Delivery Method Room Air BMI result Body Mass Index 22.3 Labs 01/02/24 07:57 Labs: Laboratory Results - last 48 hr 01/01/24 01/02/24 01/02/24 20:21 07:55 07:57 Sodium 137 Potassium 4.5 Chloride 100 Carbon Dioxide 29 Anion Gap 13 BUN 36 H Creatinine 0.95 Estim Creat Clear Calc 88.3 Estimated GFR > 60 POC Glucose 322 H 324 H Fasting Glucose 350 H* Calcium 9.4 Total Bilirubin 0.1 AST 33 ALT 30 Alkaline Phosphatase 187 H Total Protein 7.1 Albumin 3.0 L Triglycerides 86 Cholesterol 165 LDL Cholesterol, Calc 90 HDL Cholesterol 58 Meds/Allergies Meds Home Medications Medication Instructions Recorded Confirmed Type Colace 100 mg PO BID PRN Constipation 12/26/23 01/01/24 History atorvastatin 20 mg PO BEDTIME 12/26/23 01/01/24 History famotidine 20 mg PO DAILY 12/26/23 01/01/24 History gabapentin 300 mg PO TID 12/26/23 01/01/24 History hydroxyzine pamoate 50 mg PO TID PRN Anxiety 12/26/23 01/01/24 History insulin glargine 37 units subcut BEDTIME 12/26/23 01/01/24 History insulin lispro See Protocol subcut QIDACHS 12/26/23 01/01/24 History melatonin 6 mg PO BEDTIME PRN Sleep 12/26/23 01/01/24 History nicotine (polacrilex) 2 mg PO Q2H PRN Nicotine Cravings 12/26/23 01/01/24 History olanzapine 10 mg PO BEDTIME 12/26/23 01/01/24 History olanzapine 10 mg PO DAILY 12/26/23 01/01/24 History ondansetron 4 mg PO Q6H PRN Nausea And Vomiting 12/26/23 01/01/24 History sertraline 50 mg PO DAILY 12/26/23 01/01/24 History trazodone 100 mg PO BEDTIME PRN Insomnia 12/26/23 01/01/24 History calcium carbonate 500 mg calcium 500 mg PO Q4H PRN Heartburn 12/27/23 01/01/24 History (1,250 mg) chewable tablet (Calcium 500) guaifenesin 600 mg tablet, 1,200 mg PO Q12H PRN Cough 12/27/23 01/01/24 History extended release 12 hr loperamide 2 mg capsule 2 mg PO Q6H PRN AFTER EVERY LOOSE 12/27/23 01/01/24 History STOOL Allergies Allergies Allergy/AdvReac Type Severity Reaction Status Date / Time shellfish derived Allergy Unknown Verified 12/26/23 18:25 Mental Status Exam Mental Status Exam Patient Appearance: Appropriate Patient Orientation: Person and Situation Level of Consciousness: Awake and Appropriate Patient Behavior: Guarded and Passive Mood Description: Withdrawn Affect Description: Constricted Patient Cognition Impaired: No Ability to Follow Directions: Fair Speech Pattern: Clear Hallucinations: None Delusions: Not Present Thought Process: Distracted and Slowed Thinking Thought Content: positive for [place] and positive for Poverty of Content Judgement: Fair Assessment & Plan Assessment & Plan (1) Major depression with psychotic features: Status: Acute Code(s): F32.3 - Major depressive disorder, single episode, severe with psychotic features (2) CHF exacerbation: Status: Acute Code(s): I50.9 - Heart failure, unspecified Plan Adult male with a past history of CHF, several other medical comorbidities such as diabetes, CHF and major depressive disorder with psychotic features transferred from a different hospital for medical concerns. Currently medically stable and transferring to this unit for psychiatric treatment. While he was initially assessed he adamantly denies hallucinations or delusions and he is able to contract for safety. Plan 1. 50 minute checks. 2. Continue with regular medications. 3. Continue with treatment for CHF and diabetes. 4. Reassessment with results. Patient educated on: diagnosis and medical condition Reason for continued inpatient stay Substantial Risk for: inability to function, rapid decompensation and med/psych decompensation Statement Statement: I have reviewed the history and physical and performed a pertinent examination on my patient. No changes have occurred unless specified. If the History and Physical was not performed prior to admission, the Hospitalist's service will be consulted for completing the admission physical. Time Spent With Patient Time: Total time managing care of this patient today __45__ minutes.
[2024-01-02 12:29] LABS: Glucose, Whole Blood 288 mg/dL (60-115)
[2024-01-02 17:43] LABS: Glucose, Whole Blood 544 mg/dL (60-115)
[2024-01-02 21:15] LABS: Glucose, Whole Blood 463 mg/dL (60-115)
--- NOTE | 2024-01-02 21:21 | PC.NURSE ---
hospitalist notified of POC 463.
[2024-01-02 22:00] VITALS: BP 128/60; PULSE 107; RESP 16; TEMP 37.4; O2SAT 95
[2024-01-02] MEDS: Atorvastatin Calcium 20 MG TABLET PO (22:00)
[2024-01-02] MEDS: traZODone HCL 100 MG TABLET PO (22:00)
[2024-01-02] MEDS: Insulin Glargine,Hum.rec.anlog 100 UNIT/ML 10 ML VIAL 37 UNIT SUBCUT (22:01)
--- NOTE | 2024-01-02 22:06 | PC.NURSE ---
per hospitalist no new orders for HS POC.
[2024-01-03] MEDS: Acetaminophen 325 MG TABLET 650 MG PO (00:10)
[2024-01-03] MEDS: traZODone HCL 50 MG TABLET PO (00:10)
[2024-01-03] MEDS: hydrOXYzine HCL 25 MG TABLET PO (00:11)
[2024-01-03 00:13] VITALS: TEMP 36.7
[2024-01-03] MEDS: Loperamide HCl 2 MG CAPSULE PO (02:56)
[2024-01-03 07:50] VITALS: BP 134/63; PULSE 98; RESP 18; TEMP 36.9; O2SAT 97
[2024-01-03 08:18] LABS: Glucose, Whole Blood 393 mg/dL (60-115)
[2024-01-03] MEDS: Famotidine 20 MG TABLET PO (08:26)
[2024-01-03] MEDS: OLANZapine 10 MG TABLET PO ×2 (08:26→21:33)
[2024-01-03] MEDS: Sertraline HCL 50 MG TABLET PO (08:26)
[2024-01-03] MEDS: Furosemide 40 MG TABLET PO (08:28)
[2024-01-03] MEDS: Simethicone 80 MG TAB.CHEW PO ×4 (08:28→21:33)
[2024-01-03] MEDS: Gabapentin 300 MG CAPSULE PO ×3 (08:28→21:33)
[2024-01-03] MEDS: Insulin Lispro 100 UNIT/ML 3 ML VIAL SUBCUT ×4 (09:04→21:32)
[2024-01-03 10:15] LABS: Glucose, Whole Blood 414 mg/dL (60-115)
[2024-01-03 13:01] LABS: Glucose, Whole Blood 434 mg/dL (60-115)
--- NOTE | 2024-01-03 13:30 | PC.NURSE ---
Dr. Becca mejia notified of elevated blood sugar 434.
--- NOTE | 2024-01-03 14:58 | P.PNPSI_ITS ---
Subjective Subjective Date of Service: 01/03/24 Reason For Visit: suicidal Subjective Notes: Conditional Voluntary Interim History: The nursing staff had been reported that his blood sugars have been extremely high and he has been eating all day long. On interview the patient reports that he is feeling very hungry and he had poor sleep. We discussed options and he agreed to talk with the hospitalist and increase trazodone up to 200 mg p.o. q.h.s.. Mental Status Exam Mental Status Exam Patient Appearance: Well Grooomed and Appropriate Patient Orientation: Person and Situation Level of Consciousness: Awake and Appropriate Patient Behavior: Guarded and Talkative Mood Description: Withdrawn Affect Description: Constricted Patient Cognition Impaired: Yes Ability to Follow Directions: Good Speech Pattern: Clear Hallucinations: None Delusions: Paranoid Ideation and Ideas of Reference Thought Process: Distracted Thought Content: positive for [place] and positive for Poverty of Content Judgement: Fair Diagnostics Vital Signs (24Hr): Vital Signs - 24 hr 01/02/24 22:00 01/03/24 00:13 01/03/24 07:50 Temperature 99.3 F 98.0 F 98.4 F Pulse Rate 107 H 98 Respiratory Rate 16 18 Blood Pressure 128/60 134/63 Pulse Oximetry 95 97 Oxygen Delivery Method Room Air Room Air BMI result Body Mass Index 22.3 Labs 01/02/24 07:57 Labs: Laboratory Results - last 48 hr 01/01/24 01/02/24 01/02/24 20:21 07:55 07:57 Sodium 137 Potassium 4.5 Chloride 100 Carbon Dioxide 29 Anion Gap 13 BUN 36 H Creatinine 0.95 Estim Creat Clear Calc 88.3 Estimated GFR > 60 POC Glucose 322 H 324 H Fasting Glucose 350 H* Calcium 9.4 Total Bilirubin 0.1 AST 33 ALT 30 Alkaline Phosphatase 187 H Total Protein 7.1 Albumin 3.0 L Triglycerides 86 Cholesterol 165 LDL Cholesterol, Calc 90 HDL Cholesterol 58 01/02/24 01/02/24 01/02/24 12:21 17:39 21:11 Sodium Potassium Chloride Carbon Dioxide Anion Gap BUN Creatinine Estim Creat Clear Calc Estimated GFR POC Glucose 288 H 544 H* 463 H* Fasting Glucose Calcium Total Bilirubin AST ALT Alkaline Phosphatase Total Protein Albumin Triglycerides Cholesterol LDL Cholesterol, Calc HDL Cholesterol 01/03/24 01/03/24 01/03/24 07:43 10:10 12:57 Sodium Potassium Chloride Carbon Dioxide Anion Gap BUN Creatinine Estim Creat Clear Calc Estimated GFR POC Glucose 393 H* 414 H* 434 H* Fasting Glucose Calcium Total Bilirubin AST ALT Alkaline Phosphatase Total Protein Albumin Triglycerides Cholesterol LDL Cholesterol, Calc HDL Cholesterol Medications Medications Current Medications Acetaminophen (Acetaminophen 325 Mg Tablet) 650 mg PO Q6H PRN PRN Reason: Headache/Pain Mild Scale (1-3) Last Admin: 01/03/24 00:10 Dose: 650 mg Al Hydroxide/Mg Hydroxide (Magnesium Hydrox/Alum Hydrox 30 Ml Oral.Susp) 30 ml PO Q6H PRN PRN Reason: Heartburn/Nausea Atorvastatin Calcium (Atorvastatin Calcium 20 Mg Tablet) 20 mg PO BEDTIME [facility] Last Admin: 01/02/24 22:00 Dose: 20 mg Calcium Carbonate (Calcium Carbonate 750 Mg Tab.Chew) 750 mg PO Q4H PRN PRN Reason: Heartburn Docusate Sodium (Docusate Sodium 100 Mg Capsule) 100 mg PO BID PRN PRN Reason: Constipation Famotidine (Famotidine 20 Mg Tablet) 20 mg PO DAILY [facility] Last Admin: 01/03/24 08:26 Dose: 20 mg Furosemide (Furosemide 40 Mg Tablet) 40 mg PO DAILY [facility]; Protocol Last Admin: 01/03/24 08:28 Dose: 40 mg Gabapentin (Gabapentin 300 Mg Capsule) 300 mg PO TID [facility] Last Admin: 01/03/24 08:28 Dose: 300 mg Guaifenesin (Guaifenesin La 600 Mg Tab.Er.12h) 1,200 mg PO Q12H PRN PRN Reason: Cough Hydroxyzine HCl (Hydroxyzine Hcl 25 Mg Tablet) 25 mg PO Q6H PRN PRN Reason: Anxiety Last Admin: 01/03/24 00:11 Dose: 25 mg Insulin Glargine (Insulin Glargine,Hum.Rec.Anlog 100 Unit/Ml 10 Ml Vial) 37 unit SUBCUT BEDTIME [facility] Last Admin: 01/02/24 22:01 Dose: 37 unit Insulin Human Lispro (Insulin Lispro 100 Unit/Ml 3 Ml Vial) 0 unit SUBCUT QIDACHS [facility]; Protocol Last Admin: 01/03/24 13:02 Dose: 10 unit Loperamide HCl (Loperamide Hcl 2 Mg Capsule) 2 mg PO Q6H PRN PRN Reason: AFTER EVERY LOOSE STOOL Last Admin: 01/03/24 02:56 Dose: 2 mg Magnesium Hydroxide (Milk Of Magnesia 30 Ml Oral.Susp) 30 ml PO DAILY PRN PRN Reason: Constipation Melatonin (Melatonin 3 Mg Tablet) 6 mg PO BEDTIME PRN PRN Reason: Sleep Last Admin: 01/02/24 02:30 Dose: 6 mg Nicotine Polacrilex (Nicotine Polacrilex 2 Mg Gum) 2 mg BUCCAL Q2H PRN PRN Reason: Nicotine Cravings Olanzapine (Olanzapine 10 Mg Tablet) 10 mg PO BID [facility] Last Admin: 01/03/24 08:26 Dose: 10 mg Ondansetron HCl (Ondansetron Odt 4 Mg Tab.Rapdis) 4 mg TRANSLINGU Q6H PRN PRN Reason: Nausea And Vomiting Sertraline HCl (Sertraline Hcl 50 Mg Tablet) 50 mg PO DAILY [facility] Last Admin: 01/03/24 08:26 Dose: 50 mg Simethicone (Simethicone 80 Mg Tab.Chew) 80 mg PO QIDWMHS [facility] Last Admin: 01/03/24 13:02 Dose: 80 mg Trazodone HCl (Trazodone Hcl 50 Mg Tablet) 50 mg PO BEDTIME MRX1 PRN PRN Reason: Insomnia Last Admin: 01/03/24 00:10 Dose: 50 mg Trazodone HCl (Trazodone Hcl 100 Mg Tablet) 200 mg PO BEDTIME [facility] Allergies Allergies Allergy/AdvReac Type Severity Reaction Status Date / Time shellfish derived Allergy Unknown Verified 12/26/23 18:25 Assessment & Plan Assessment & Plan (1) Major depression with psychotic features: Status: Acute Code(s): F32.3 - Major depressive disorder, single episode, severe with psychotic features (2) CHF exacerbation: Status: Acute Code(s): I50.9 - Heart failure, unspecified Plan Adult male with a past history of CHF, several other medical comorbidities such as diabetes, CHF and major depressive disorder with psychotic features transferred from a different hospital for medical concerns. Currently medically stable and transferring to this unit for psychiatric treatment. While he was initially assessed he adamantly denies hallucinations or delusions and he is able to contract for safety. Plan 1. 50 minute checks. 2. Continue with regular medications. 3. Continue with treatment for CHF and diabetes. 4. Reassessment with results. 5. Hospitalist consult to reassess insulin. 6. Increase trazodone up to 200 mg p.o. q.h.s. to target insomnia Reason for continued inpatient stay Substantial Risk for: inability to function, rapid decompensation and med/psych decompensation Time Spent With Patient Time: Total time managing care of this patient today __20__ minutes.
[2024-01-03 17:41] LABS: Glucose, Whole Blood 553 mg/dL (60-115)
[2024-01-03] MEDS: Insulin Glargine,Hum.rec.anlog 100 UNIT/ML 10 ML VIAL 10 UNIT SUBCUT (18:14)
--- NOTE | 2024-01-03 18:41 | PM.EVENT ---
Event Note Date of Service: 01/03/24 Event Note: Patient seen for markedly elevated blood glucose levels while on the unit. Patient's POC has regularly been in the 400-500s. Patient was placed on a diabetic diet, but states he often does not like the food he is given or the options he has. Says he is thus hungry after his meals which is why he snacks all day on sugary and salty snacks. Discussed with him healthy diabetic food choices such as fruits and vegetables, whole grains, lean meats or non-meat proteins, and nonfat or low-fat dairy products. Will attempt to control patient's intractable snacking by placing him on a regular diet and advising him to make healthy diabetic food choices. Will increase his sliding scale insulin by 4 units and increase his Lantus from 37 units at bedtime to split dosing of 25 units at bedtime and 25 units in the morning. Ultimately the pt knows it is up to him and the foods he eats to control his blood glucose levels. Time Spent With Patient Time: Total time managing care of this patient today ____ minutes.
[2024-01-03 21:30] VITALS: BP 131/82; PULSE 99; RESP 16; TEMP 36.6; O2SAT 95
[2024-01-03] MEDS: Insulin Glargine,Hum.rec.anlog 100 UNIT/ML 10 ML VIAL 25 UNIT SUBCUT (21:31)
[2024-01-03 21:33] LABS: Glucose, Whole Blood 335 mg/dL (60-115)
[2024-01-03] MEDS: Atorvastatin Calcium 20 MG TABLET PO (21:33)
[2024-01-03] MEDS: traZODone HCL 100 MG TABLET 200 MG PO (21:33)
[2024-01-04 07:57] VITALS: BP 116/64; PULSE 64; RESP 12; TEMP 36.6; O2SAT 99
[2024-01-04 08:22] LABS: Hemoglobin A1c % > 14.0 % (<6.0)
[2024-01-04] MEDS: Simethicone 80 MG TAB.CHEW PO ×4 (08:23→22:10)
[2024-01-04] MEDS: Furosemide 40 MG TABLET PO (08:23)
[2024-01-04] MEDS: Sertraline HCL 50 MG TABLET PO (08:23)
[2024-01-04] MEDS: Gabapentin 300 MG CAPSULE PO ×3 (08:23→22:11)
[2024-01-04] MEDS: Famotidine 20 MG TABLET PO (08:23)
[2024-01-04] MEDS: OLANZapine 10 MG TABLET PO (08:23)
[2024-01-04 08:56] LABS: Glucose, Whole Blood 219 mg/dL (60-115)
[2024-01-04] MEDS: Insulin Glargine,Hum.rec.anlog 100 UNIT/ML 10 ML VIAL 25 UNIT SUBCUT ×2 (09:05→09:07)
[2024-01-04] MEDS: Insulin Lispro 100 UNIT/ML 3 ML VIAL SUBCUT ×4 (09:07→22:08)
[2024-01-04 12:48] LABS: Glucose, Whole Blood 253 mg/dL (60-115)
--- NOTE | 2024-01-04 14:57 | MHC.CLN ---
Addendum entered by Gini Marshall RD 01/04/24 15:06: SEE MD NOTE ABOUT BLOOD SUGAR AND DIET 01/03/24. Original Note: NUTRITION NUTRITION CONSULT FOR DIABETIC WITH WEIGHT LOSS. REVIEW OF RECENT WEIGHTS SHOWS 01/01=66.4 KG; 12/27=65 KG; 12/26=70.3 KG. WEIGHT ON 12/26 LIKELY IS ERROR. INTAKE DURING [facility]ST WEEK WAS EXCELLENT, WITH MOST MEALS 100%. DIET WAS DIABETIC 2200 KCALS. CURRENT POC ELEVATED AND TAKING DM MEDICATIONS. RECOMMEND ENCOURAGE DIABETIC DIET ABLE TO BETTER CONTROL BLOOD GLUCOSE.
[2024-01-04] MEDS: Acetaminophen 325 MG TABLET 650 MG PO (16:33)
[2024-01-04 17:52] LABS: Glucose, Whole Blood 396 mg/dL (60-115)
--- NOTE | 2024-01-04 17:57 | PC.NURSE ---
Patient POC 396, states he has been snacking on crackers. Provider monument carver Jackie Ospina APRN notified. Hospitalist Ledy Pineda also notified.
--- NOTE | 2024-01-04 18:00 | HO.PSYEVENT2 ---
Documented by User: Mily Ospina APRN 01/14/24 09:15 Event Note Date of Service: 01/14/24 Psych On-Call Event Note: Pt's POC 396 at 1757. Given 14u of coverage. Requested a recheck at 2000. Time Spent With Patient Time: Total time managing care of this patient today ____ minutes. Documented by User: Bill Rose MD 01/21/24 22:46 Event Note Date of Service: 01/21/24
--- NOTE | 2024-01-04 19:13 | P.PNPSI_ITS ---
Subjective Subjective Date of Service: 01/04/24 Reason For Visit: suicidal Interim History: pt c/o seeing shadows at night and having AH in the morning. feels zyprexa has not been helpful for him. hearing AH saying things like, just forget it, and you're worthless. agreeable to haldol trial. per staff, +AH, withdrawn. depressed, denies SI. pedal edema +1. high FSBS. homeless. slept 7 hours. Mental Status Exam Mental Status Exam Narrative: He was pleasant and cooperative, adequately dressed and groomed. Speech is soft amd slowed. Little eye contact. Affect is appropriate and constricted. No acute signs of psychosis but admits to auditory hallucinations. no SI/HI expressed. + illusions. Cognitively he is intact. Judgment is intact Diagnostics Vital Signs (24Hr): Vital Signs - 24 hr 01/03/24 21:30 01/04/24 07:57 Temperature 98 F 97.8 F Pulse Rate 99 64 Respiratory Rate 16 12 Blood Pressure 131/82 116/64 Pulse Oximetry 95 99 Oxygen Delivery Method Room Air Room Air BMI result Body Mass Index 22.3 Labs 01/02/24 07:57 Labs: Laboratory Results - last 48 hr 01/02/24 01/03/24 01/03/24 21:11 07:43 10:10 POC Glucose 463 H* 393 H* 414 H* Estimat Average Glucose Hemoglobin A1c % 01/03/24 01/03/24 01/03/24 12:57 17:36 21:29 POC Glucose 434 H* 553 H* 335 H Estimat Average Glucose Hemoglobin A1c % 01/04/24 01/04/24 01/04/24 08:08 08:52 12:45 POC Glucose 219 H 253 H Estimat Average Glucose TNP Hemoglobin A1c % > 14.0 H 01/04/24 17:48 POC Glucose 396 H* Estimat Average Glucose Hemoglobin A1c % Medications Medications Current Medications Acetaminophen (Acetaminophen 325 Mg Tablet) 650 mg PO Q6H PRN PRN Reason: Headache/Pain Mild Scale (1-3) Last Admin: 01/04/24 16:33 Dose: 650 mg Al Hydroxide/Mg Hydroxide (Magnesium Hydrox/Alum Hydrox 30 Ml Oral.Susp) 30 ml PO Q6H PRN PRN Reason: Heartburn/Nausea Atorvastatin Calcium (Atorvastatin Calcium 20 Mg Tablet) 20 mg PO BEDTIME [facility] Last Admin: 01/03/24 21:33 Dose: 20 mg Calcium Carbonate (Calcium Carbonate 750 Mg Tab.Chew) 750 mg PO Q4H PRN PRN Reason: Heartburn Diphenhydramine HCl (Diphenhydramine Hcl 25 Mg Capsule) 25 mg PO BID [facility] Docusate Sodium (Docusate Sodium 100 Mg Capsule) 100 mg PO BID PRN PRN Reason: Constipation Famotidine (Famotidine 20 Mg Tablet) 20 mg PO DAILY [facility] Last Admin: 01/04/24 08:23 Dose: 20 mg Furosemide (Furosemide 40 Mg Tablet) 40 mg PO DAILY [facility]; Protocol Last Admin: 01/04/24 08:23 Dose: 40 mg Gabapentin (Gabapentin 300 Mg Capsule) 300 mg PO TID [facility] Last Admin: 01/04/24 14:56 Dose: 300 mg Guaifenesin (Guaifenesin La 600 Mg Tab.Er.12h) 1,200 mg PO Q12H PRN PRN Reason: Cough Haloperidol (Haloperidol 5 Mg Tablet) 5 mg PO BID [facility] Hydroxyzine HCl (Hydroxyzine Hcl 25 Mg Tablet) 25 mg PO Q6H PRN PRN Reason: Anxiety Last Admin: 01/03/24 00:11 Dose: 25 mg Insulin Glargine (Insulin Glargine,Hum.Rec.Anlog 100 Unit/Ml 10 Ml Vial) 30 unit SUBCUT BEDTIME [facility] Insulin Glargine (Insulin Glargine,Hum.Rec.Anlog 100 Unit/Ml 10 Ml Vial) 30 unit SUBCUT DAILY [facility] Insulin Human Lispro (Insulin Lispro 100 Unit/Ml 3 Ml Vial) 0 unit SUBCUT QIDACHS [facility]; Protocol Last Admin: 01/04/24 17:51 Dose: 14 unit Loperamide HCl (Loperamide Hcl 2 Mg Capsule) 2 mg PO Q6H PRN PRN Reason: AFTER EVERY LOOSE STOOL Last Admin: 01/03/24 02:56 Dose: 2 mg Magnesium Hydroxide (Milk Of Magnesia 30 Ml Oral.Susp) 30 ml PO DAILY PRN PRN Reason: Constipation Melatonin (Melatonin 3 Mg Tablet) 6 mg PO BEDTIME PRN PRN Reason: Sleep Last Admin: 01/02/24 02:30 Dose: 6 mg Nicotine Polacrilex (Nicotine Polacrilex 2 Mg Gum) 2 mg BUCCAL Q2H PRN PRN Reason: Nicotine Cravings Ondansetron HCl (Ondansetron Odt 4 Mg Tab.Rapdis) 4 mg TRANSLINGU Q6H PRN PRN Reason: Nausea And Vomiting Sertraline HCl (Sertraline Hcl 50 Mg Tablet) 50 mg PO DAILY [facility] Last Admin: 01/04/24 08:23 Dose: 50 mg Simethicone (Simethicone 80 Mg Tab.Chew) 80 mg PO QIDWMHS [facility] Last Admin: 01/04/24 17:44 Dose: 80 mg Trazodone HCl (Trazodone Hcl 50 Mg Tablet) 50 mg PO BEDTIME MRX1 PRN PRN Reason: Insomnia Last Admin: 01/03/24 00:10 Dose: 50 mg Trazodone HCl (Trazodone Hcl 100 Mg Tablet) 200 mg PO BEDTIME [facility] Last Admin: 01/03/24 21:33 Dose: 200 mg Allergies Allergies Allergy/AdvReac Type Severity Reaction Status Date / Time shellfish derived Allergy Unknown Verified 12/26/23 18:25 Assessment & Plan Assessment & Plan (1) Major depression with psychotic features: Status: Acute Code(s): F32.3 - Major depressive disorder, single episode, severe with psychotic features (2) CHF exacerbation: Status: Acute Code(s): I50.9 - Heart failure, unspecified Plan Adult male with a past history of CHF, several other medical comorbidities such as diabetes, CHF and major depressive disorder with psychotic features transferred from a different hospital for medical concerns. Currently medically stable and transferring to this unit for psychiatric treatment. While he was initially assessed he adamantly denies hallucinations or delusions and he is able to contract for safety. Plan 1. 50 minute checks. 2. Continue with regular medications. 3. Continue with treatment for CHF and diabetes. 4. Reassessment with results. 5. Hospitalist consult to reassess insulin. 6. Increase trazodone up to 200 mg p.o. q.h.s. to target insomnia 01/04: DC zyprexa as ineffective. start trial of haldol with benadryl for EPS prophylaxis. reports of VH are dubious, sound like illusions. AH more credible. Reason for continued inpatient stay Substantial Risk for: harm to self, inability to function and rapid decompensation Time Spent With Patient Time: Total time managing care of this patient today __25__ minutes.
[2024-01-04 20:15] VITALS: BP 144/72; PULSE 107; RESP 18; TEMP 36.6; O2SAT 96
[2024-01-04 21:25] LABS: Glucose, Whole Blood 410 mg/dL (60-115)
[2024-01-04] MEDS: Insulin Glargine,Hum.rec.anlog 100 UNIT/ML 10 ML VIAL 30 UNIT SUBCUT (22:06)
[2024-01-04] MEDS: traZODone HCL 100 MG TABLET 200 MG PO (22:10)
[2024-01-04] MEDS: Atorvastatin Calcium 20 MG TABLET PO (22:11)
[2024-01-04] MEDS: HaloperidoL 5 MG TABLET PO (22:11)
[2024-01-04] MEDS: diphenhydrAMINE HCL 25 MG CAPSULE PO (22:11)
[2024-01-05] MEDS: hydrOXYzine HCL 25 MG TABLET PO (04:37)
[2024-01-05 06:00] VITALS: BP 140/70; PULSE 96; RESP 18; TEMP 36.6; O2SAT 97
[2024-01-05 08:16] LABS: Glucose, Whole Blood 262 mg/dL (60-115)
[2024-01-05] MEDS: Furosemide 40 MG TABLET PO (08:53)
[2024-01-05] MEDS: HaloperidoL 5 MG TABLET PO (08:53)
[2024-01-05] MEDS: diphenhydrAMINE HCL 25 MG CAPSULE PO (08:53)
[2024-01-05] MEDS: Sertraline HCL 50 MG TABLET PO (08:53)
[2024-01-05] MEDS: Famotidine 20 MG TABLET PO (08:53)
[2024-01-05] MEDS: Gabapentin 300 MG CAPSULE PO ×3 (08:53→22:21)
[2024-01-05] MEDS: Simethicone 80 MG TAB.CHEW PO ×4 (08:53→22:21)
[2024-01-05] MEDS: Insulin Lispro 100 UNIT/ML 3 ML VIAL SUBCUT ×4 (09:00→22:17)
[2024-01-05] MEDS: Insulin Glargine,Hum.rec.anlog 100 UNIT/ML 10 ML VIAL 30 UNIT SUBCUT ×2 (09:16→22:18)
[2024-01-05] MEDS: Acetaminophen 325 MG TABLET 975 MG PO (11:28)
[2024-01-05 12:43] LABS: Glucose, Whole Blood 262 mg/dL (60-115)
--- NOTE | 2024-01-05 15:26 | P.PNPSI_ITS ---
Subjective Subjective Date of Service: 01/05/24 Reason For Visit: suicidal Interim History: c/o [place]GAS this morning. poor sleep. finds haldol sedating in a.m. agrees to have all haldol and benadryl at HS. per staff, +AH, derogatory. insulin increased. FSBS in 200-400 range. broken sleep. slept maybe 6 hours. Mental Status Exam Mental Status Exam Narrative: He was pleasant and cooperative, adequately dressed and groomed. Speech is soft amd slowed. fair eye contact. Affect is appropriate and constricted. No acute signs of psychosis but admits to auditory hallucinations. no SI/HI expressed. + illusions. Cognitively he is intact. Judgment is intact Diagnostics Vital Signs (24Hr): Vital Signs - 24 hr 01/04/24 20:15 01/05/24 06:00 Temperature 97.9 F 97.9 F Pulse Rate 107 H 96 Respiratory Rate 18 18 Blood Pressure 144/72 H 140/70 H Pulse Oximetry 96 97 Oxygen Delivery Method Room Air Room Air BMI result Body Mass Index 22.3 Labs 01/02/24 07:57 Labs: Laboratory Results - last 48 hr 01/03/24 01/03/24 01/04/24 17:36 21:29 08:08 POC Glucose 553 H* 335 H Estimat Average Glucose TNP Hemoglobin A1c % > 14.0 H 01/04/24 01/04/24 01/04/24 08:52 12:45 17:48 POC Glucose 219 H 253 H 396 H* Estimat Average Glucose Hemoglobin A1c % 01/04/24 01/05/24 01/05/24 21:20 08:11 12:39 POC Glucose 410 H* 262 H 262 H Estimat Average Glucose Hemoglobin A1c % Medications Medications Current Medications Acetaminophen (Acetaminophen 325 Mg Tablet) 975 mg PO Q6H PRN PRN Reason: Headache/Pain Mild Scale (1-3) Last Admin: 01/05/24 11:28 Dose: 975 mg Al Hydroxide/Mg Hydroxide (Magnesium Hydrox/Alum Hydrox 30 Ml Oral.Susp) 30 ml PO Q6H PRN PRN Reason: Heartburn/Nausea Atorvastatin Calcium (Atorvastatin Calcium 20 Mg Tablet) 20 mg PO BEDTIME [facility] Last Admin: 01/04/24 22:11 Dose: 20 mg Calcium Carbonate (Calcium Carbonate 750 Mg Tab.Chew) 750 mg PO Q4H PRN PRN Reason: Heartburn Diphenhydramine HCl (Diphenhydramine Hcl 25 Mg Capsule) 50 mg PO BEDTIME [facility] Docusate Sodium (Docusate Sodium 100 Mg Capsule) 100 mg PO BID PRN PRN Reason: Constipation Famotidine (Famotidine 20 Mg Tablet) 20 mg PO DAILY [facility] Last Admin: 01/05/24 08:53 Dose: 20 mg Furosemide (Furosemide 40 Mg Tablet) 40 mg PO DAILY [facility]; Protocol Last Admin: 01/05/24 08:53 Dose: 40 mg Gabapentin (Gabapentin 300 Mg Capsule) 300 mg PO TID [facility] Last Admin: 01/05/24 08:53 Dose: 300 mg Guaifenesin (Guaifenesin La 600 Mg Tab.Er.12h) 1,200 mg PO Q12H PRN PRN Reason: Cough Haloperidol (Haloperidol 5 Mg Tablet) 10 mg PO BEDTIME [facility] Hydroxyzine HCl (Hydroxyzine Hcl 25 Mg Tablet) 25 mg PO Q6H PRN PRN Reason: Anxiety Last Admin: 01/05/24 04:37 Dose: 25 mg Insulin Glargine (Insulin Glargine,Hum.Rec.Anlog 100 Unit/Ml 10 Ml Vial) 30 unit SUBCUT BEDTIME [facility] Last Admin: 01/04/24 22:06 Dose: 30 unit Insulin Glargine (Insulin Glargine,Hum.Rec.Anlog 100 Unit/Ml 10 Ml Vial) 30 unit SUBCUT DAILY [facility] Last Admin: 01/05/24 09:16 Dose: 30 unit Insulin Human Lispro (Insulin Lispro 100 Unit/Ml 3 Ml Vial) 0 unit SUBCUT QIDACHS [facility]; Protocol Last Admin: 01/05/24 12:57 Dose: 8 unit Loperamide HCl (Loperamide Hcl 2 Mg Capsule) 2 mg PO Q6H PRN PRN Reason: AFTER EVERY LOOSE STOOL Last Admin: 01/03/24 02:56 Dose: 2 mg Magnesium Hydroxide (Milk Of Magnesia 30 Ml Oral.Susp) 30 ml PO DAILY PRN PRN Reason: Constipation Melatonin (Melatonin 3 Mg Tablet) 6 mg PO BEDTIME PRN PRN Reason: Sleep Last Admin: 01/02/24 02:30 Dose: 6 mg Nicotine Polacrilex (Nicotine Polacrilex 2 Mg Gum) 2 mg BUCCAL Q2H PRN PRN Reason: Nicotine Cravings Ondansetron HCl (Ondansetron Odt 4 Mg Tab.Rapdis) 4 mg TRANSLINGU Q6H PRN PRN Reason: Nausea And Vomiting Sertraline HCl (Sertraline Hcl 50 Mg Tablet) 50 mg PO DAILY [facility] Last Admin: 01/05/24 08:53 Dose: 50 mg Simethicone (Simethicone 80 Mg Tab.Chew) 80 mg PO QIDWMHS [facility] Last Admin: 01/05/24 12:46 Dose: 80 mg Trazodone HCl (Trazodone Hcl 50 Mg Tablet) 50 mg PO BEDTIME MRX1 PRN PRN Reason: Insomnia Last Admin: 01/03/24 00:10 Dose: 50 mg Trazodone HCl (Trazodone Hcl 100 Mg Tablet) 200 mg PO BEDTIME [facility] Last Admin: 01/04/24 22:10 Dose: 200 mg Allergies Allergies Allergy/AdvReac Type Severity Reaction Status Date / Time shellfish derived Allergy Unknown Verified 12/26/23 18:25 Assessment & Plan Assessment & Plan (1) Major depression with psychotic features: Status: Acute Code(s): F32.3 - Major depressive disorder, single episode, severe with psychotic features (2) CHF exacerbation: Status: Acute Code(s): I50.9 - Heart failure, unspecified Plan Adult male with a past history of CHF, several other medical comorbidities such as diabetes, CHF and major depressive disorder with psychotic features transferred from a different hospital for medical concerns. Currently medically stable and transferring to this unit for psychiatric treatment. While he was initially assessed he adamantly denies hallucinations or delusions and he is able to contract for safety. Plan 1. 50 minute checks. 2. Continue with regular medications. 3. Continue with treatment for CHF and diabetes. 4. Reassessment with results. 5. Hospitalist consult to reassess insulin. 6. Increase trazodone up to 200 mg p.o. q.h.s. to target insomnia 01/04: DC zyprexa as ineffective. start trial of haldol with benadryl for EPS prophylaxis. reports of VH are dubious, sound like illusions. AH more credible. 01/05: calm, cooperative. c/o low dose of gabapentin, says he was on 800 TID previously. appears to have arrived at our facility on 300 TID. consolidate haldol and benadryl from 04/02 BID to at HS. otherwise continue current mgmt. Reason for continued inpatient stay Substantial Risk for: inability to function and rapid decompensation Time Spent With Patient Time: Total time managing care of this patient today ____ minutes.
[2024-01-05 17:39] LABS: Glucose, Whole Blood 326 mg/dL (60-115)
[2024-01-05 20:05] VITALS: BP 137/75; PULSE 108; RESP 16; TEMP 37.2; O2SAT 100
[2024-01-05] MEDS: traZODone HCL 100 MG TABLET 200 MG PO (22:20)
[2024-01-05] MEDS: HaloperidoL 5 MG TABLET 10 MG PO (22:21)
[2024-01-05] MEDS: diphenhydrAMINE HCL 25 MG CAPSULE 50 MG PO (22:22)
[2024-01-05] MEDS: Atorvastatin Calcium 20 MG TABLET PO (22:22)
[2024-01-06 00:18] LABS: Glucose, Whole Blood 190 mg/dL (60-115)
[2024-01-06 07:20] VITALS: BP 126/68; PULSE 97; RESP 16; TEMP 37.1; O2SAT 94
[2024-01-06 08:38] LABS: Glucose, Whole Blood 89 mg/dL (60-115)
[2024-01-06] MEDS: Furosemide 40 MG TABLET PO (09:02)
[2024-01-06] MEDS: Simethicone 80 MG TAB.CHEW PO ×4 (09:02→20:58)
[2024-01-06] MEDS: Gabapentin 300 MG CAPSULE PO ×2 (09:02→14:58)
[2024-01-06] MEDS: Famotidine 20 MG TABLET PO (09:02)
[2024-01-06] MEDS: Sertraline HCL 50 MG TABLET PO (09:02)
[2024-01-06] MEDS: Insulin Glargine,Hum.rec.anlog 100 UNIT/ML 10 ML VIAL 30 UNIT SUBCUT ×2 (09:08→20:57)
[2024-01-06 12:59] LABS: Glucose, Whole Blood 266 mg/dL (60-115)
[2024-01-06] MEDS: Insulin Lispro 100 UNIT/ML 3 ML VIAL SUBCUT ×3 (13:07→20:57)
--- NOTE | 2024-01-06 15:24 | HO.PSYCHPN ---
Subjective Subjective Date of Service: 01/06/24 Reason For Visit: suicidal Interim History: calm, cooperative. +AH this morning. slept OK. no other complaints. informs he gets his meds at [facility]. per staff, flat, not attending groups. POC 262, 262, 326, 190. isolative. slept about 8 hours. not very social. Mental Status Exam Mental Status Exam Narrative: He was pleasant and cooperative, adequately dressed and groomed. Speech is soft and slowed. fair eye contact. Affect is appropriate and constricted. No acute signs of psychosis but admits to auditory hallucinations. no SI/HI expressed. + illusions. Cognitively he is intact. Judgment is intact Diagnostics Vital Signs (24Hr): Vital Signs - 24 hr 01/05/24 20:05 01/06/24 07:20 Temperature 98.9 F 98.7 F Pulse Rate 108 H 97 Respiratory Rate 16 16 Blood Pressure 137/75 126/68 Pulse Oximetry 100 94 Oxygen Delivery Method Room Air Room Air BMI result Body Mass Index 22.3 Labs 01/02/24 07:57 Labs: Laboratory Results - last 48 hr 01/04/24 01/04/24 01/05/24 17:48 21:20 08:11 POC Glucose 396 H* 410 H* 262 H 01/05/24 01/05/24 01/05/24 12:39 17:35 21:27 POC Glucose 262 H 326 H 190 H 01/06/24 01/06/24 08:34 12:55 POC Glucose 89 266 H Medications Medications Current Medications Acetaminophen (Acetaminophen 325 Mg Tablet) 975 mg PO Q6H PRN PRN Reason: Headache/Pain Mild Scale (1-3) Last Admin: 01/05/24 11:28 Dose: 975 mg Al Hydroxide/Mg Hydroxide (Magnesium Hydrox/Alum Hydrox 30 Ml Oral.Susp) 30 ml PO Q6H PRN PRN Reason: Heartburn/Nausea Atorvastatin Calcium (Atorvastatin Calcium 20 Mg Tablet) 20 mg PO BEDTIME [facility] Last Admin: 01/05/24 22:22 Dose: 20 mg Calcium Carbonate (Calcium Carbonate 750 Mg Tab.Chew) 750 mg PO Q4H PRN PRN Reason: Heartburn Diphenhydramine HCl (Diphenhydramine Hcl 25 Mg Capsule) 50 mg PO BEDTIME [facility] Last Admin: 01/05/24 22:22 Dose: 50 mg Docusate Sodium (Docusate Sodium 100 Mg Capsule) 100 mg PO BID PRN PRN Reason: Constipation Famotidine (Famotidine 20 Mg Tablet) 20 mg PO DAILY [facility] Last Admin: 01/06/24 09:02 Dose: 20 mg Furosemide (Furosemide 40 Mg Tablet) 40 mg PO DAILY [facility]; Protocol Last Admin: 01/06/24 09:02 Dose: 40 mg Gabapentin (Gabapentin 300 Mg Capsule) 300 mg PO TID [facility] Last Admin: 01/06/24 14:58 Dose: 300 mg Guaifenesin (Guaifenesin La 600 Mg Tab.Er.12h) 1,200 mg PO Q12H PRN PRN Reason: Cough Haloperidol (Haloperidol 5 Mg Tablet) 10 mg PO BEDTIME [facility] Last Admin: 01/05/24 22:21 Dose: 10 mg Hydroxyzine HCl (Hydroxyzine Hcl 25 Mg Tablet) 25 mg PO Q6H PRN PRN Reason: Anxiety Last Admin: 01/05/24 04:37 Dose: 25 mg Insulin Glargine (Insulin Glargine,Hum.Rec.Anlog 100 Unit/Ml 10 Ml Vial) 30 unit SUBCUT BEDTIME [facility] Last Admin: 01/05/24 22:18 Dose: 30 unit Insulin Glargine (Insulin Glargine,Hum.Rec.Anlog 100 Unit/Ml 10 Ml Vial) 30 unit SUBCUT DAILY [facility] Last Admin: 01/06/24 09:08 Dose: 30 unit Insulin Human Lispro (Insulin Lispro 100 Unit/Ml 3 Ml Vial) 0 unit SUBCUT QIDACHS [facility]; Protocol Last Admin: 01/06/24 13:07 Dose: 8 unit Loperamide HCl (Loperamide Hcl 2 Mg Capsule) 2 mg PO Q6H PRN PRN Reason: AFTER EVERY LOOSE STOOL Last Admin: 01/03/24 02:56 Dose: 2 mg Magnesium Hydroxide (Milk Of Magnesia 30 Ml Oral.Susp) 30 ml PO DAILY PRN PRN Reason: Constipation Melatonin (Melatonin 3 Mg Tablet) 6 mg PO BEDTIME PRN PRN Reason: Sleep Last Admin: 01/02/24 02:30 Dose: 6 mg Nicotine Polacrilex (Nicotine Polacrilex 2 Mg Gum) 2 mg BUCCAL Q2H PRN PRN Reason: Nicotine Cravings Ondansetron HCl (Ondansetron Odt 4 Mg Tab.Rapdis) 4 mg TRANSLINGU Q6H PRN PRN Reason: Nausea And Vomiting Sertraline HCl (Sertraline Hcl 50 Mg Tablet) 50 mg PO DAILY [facility] Last Admin: 01/06/24 09:02 Dose: 50 mg Simethicone (Simethicone 80 Mg Tab.Chew) 80 mg PO QIDWMHS [facility] Last Admin: 01/06/24 13:07 Dose: 80 mg Trazodone HCl (Trazodone Hcl 50 Mg Tablet) 50 mg PO BEDTIME MRX1 PRN PRN Reason: Insomnia Last Admin: 01/03/24 00:10 Dose: 50 mg Trazodone HCl (Trazodone Hcl 100 Mg Tablet) 200 mg PO BEDTIME [facility] Last Admin: 01/05/24 22:20 Dose: 200 mg Allergies Allergies Allergy/AdvReac Type Severity Reaction Status Date / Time shellfish derived Allergy Unknown Verified 12/26/23 18:25 Assessment & Plan Assessment & Plan (1) Major depression with psychotic features: Status: Acute Code(s): F32.3 - Major depressive disorder, single episode, severe with psychotic features (2) CHF exacerbation: Status: Acute Code(s): I50.9 - Heart failure, unspecified Plan Adult male with a past history of CHF, several other medical comorbidities such as diabetes, CHF and major depressive disorder with psychotic features transferred from a different hospital for medical concerns. Currently medically stable and transferring to this unit for psychiatric treatment. While he was initially assessed he adamantly denies hallucinations or delusions and he is able to contract for safety. Plan 1. 50 minute checks. 2. Continue with regular medications. 3. Continue with treatment for CHF and diabetes. 4. Reassessment with results. 5. Hospitalist consult to reassess insulin. 6. Increase trazodone up to 200 mg p.o. q.h.s. to target insomnia 01/04: DC zyprexa as ineffective. start trial of haldol with benadryl for EPS prophylaxis. reports of VH are dubious, sound like illusions. AH more credible. 01/05: calm, cooperative. c/o low dose of gabapentin, says he was on 800 TID previously. appears to have arrived at our facility on 300 TID. consolidate haldol and benadryl from 04/02 BID to at HS. otherwise continue current mgmt. 01/06: outpt gabapentin 800 TID verified with pharmacy; increase carmen to 600 TID for now. +AH today. continue current mgmt otherwise. Reason for continued inpatient stay Substantial Risk for: harm to self, inability to function and rapid decompensation Time Spent With Patient Time: Total time managing care of this patient today __35__ minutes.
[2024-01-06 17:35] LABS: Glucose, Whole Blood 217 mg/dL (60-115)
[2024-01-06 20:00] VITALS: BP 148/78; PULSE 104; RESP 18; TEMP 37.1; O2SAT 99
[2024-01-06 20:45] LABS: Glucose, Whole Blood 240 mg/dL (60-115)
[2024-01-06] MEDS: diphenhydrAMINE HCL 25 MG CAPSULE 50 MG PO (20:58)
[2024-01-06] MEDS: traZODone HCL 100 MG TABLET 200 MG PO (20:58)
[2024-01-06] MEDS: Gabapentin 300 MG CAPSULE 600 MG PO (20:59)
[2024-01-06] MEDS: Atorvastatin Calcium 20 MG TABLET PO (20:59)
[2024-01-06] MEDS: HaloperidoL 5 MG TABLET 10 MG PO (20:59)
--- NOTE | 2024-01-06 21:25 | PM.EVENT ---
Event Note Date of Service: 01/06/24 Event Note: Glucose control much improved. Would continue lantus 30 units BID. Continue insulin on current recommended sliding scale. Continue to recommend diabetic diet and advise healthy snacking options. Will sign off at this time, but please do not hesitate to reach out for any acute medical concerns or any questions. Thank you for this consult. Time Spent With Patient Time: Total time managing care of this patient today ____ minutes.
[2024-01-07 07:00] VITALS: BMI 22.4
[2024-01-07 07:30] VITALS: BP 135/74; PULSE 98; RESP 14; RESP 18; TEMP 36.1; TEMP 36.5; O2SAT 94
[2024-01-07 07:49] LABS: Glucose, Whole Blood 178 mg/dL (60-115)
[2024-01-07] MEDS: Gabapentin 300 MG CAPSULE 600 MG PO ×3 (08:52→21:40)
[2024-01-07] MEDS: Furosemide 40 MG TABLET PO (08:52)
[2024-01-07] MEDS: Sertraline HCL 50 MG TABLET PO (08:52)
[2024-01-07] MEDS: Simethicone 80 MG TAB.CHEW PO ×4 (08:52→21:40)
[2024-01-07] MEDS: Famotidine 20 MG TABLET PO (08:52)
[2024-01-07] MEDS: Insulin Lispro 100 UNIT/ML 3 ML VIAL SUBCUT ×4 (08:53→21:38)
[2024-01-07] MEDS: Insulin Glargine,Hum.rec.anlog 100 UNIT/ML 10 ML VIAL 30 UNIT SUBCUT ×2 (08:54→21:39)
[2024-01-07] MEDS: HaloperidoL 5 MG TABLET PO (10:49)
[2024-01-07] MEDS: diphenhydrAMINE HCL 25 MG CAPSULE PO (10:49)
[2024-01-07 13:04] LABS: Glucose, Whole Blood 290 mg/dL (60-115)
--- NOTE | 2024-01-07 14:49 | P.PNPSI_ITS ---
Subjective Subjective Date of Service: 01/07/24 Reason For Visit: suicidal Interim History: calm, cooperative. c/o AH this morning which were quite unsettling to him. agreeable to add dose of haldol in the morning, asks for 5 mg dosing. per staff, dep 7 anx 3. FSBS 266, 217, 240. not attending groups. feeling less depressed. slept 8 hours. Mental Status Exam Mental Status Exam Narrative: He was pleasant and cooperative, adequately dressed and groomed. Speech is soft and slowed. fair eye contact. Affect is appropriate and constricted. No acute signs of psychosis but admits to auditory hallucinations. no SI/HI/VH expressed. Cognitively he is intact. Judgment is intact Diagnostics Vital Signs (24Hr): Vital Signs - 24 hr 01/06/24 20:00 01/07/24 07:30 01/07/24 07:30 Temperature 98.8 F 97.7 F 97.0 F Pulse Rate 104 H 98 98 Respiratory Rate 18 14 18 Blood Pressure 148/78 H 135/74 135/74 Pulse Oximetry 99 94 94 Oxygen Delivery Method Room Air Room Air Room Air BMI result Body Mass Index 22.4 Labs 01/02/24 07:57 Labs: Laboratory Results - last 48 hr 01/05/24 01/05/24 01/06/24 17:35 21:27 08:34 POC Glucose 326 H 190 H 89 01/06/24 01/06/24 01/06/24 12:55 17:31 20:41 POC Glucose 266 H 217 H 240 H 01/07/24 01/07/24 07:43 12:31 POC Glucose 178 H 290 H Medications Medications Current Medications Acetaminophen (Acetaminophen 325 Mg Tablet) 975 mg PO Q6H PRN PRN Reason: Headache/Pain Mild Scale (1-3) Last Admin: 01/05/24 11:28 Dose: 975 mg Al Hydroxide/Mg Hydroxide (Magnesium Hydrox/Alum Hydrox 30 Ml Oral.Susp) 30 ml PO Q6H PRN PRN Reason: Heartburn/Nausea Atorvastatin Calcium (Atorvastatin Calcium 20 Mg Tablet) 20 mg PO BEDTIME [facility] Last Admin: 01/06/24 20:59 Dose: 20 mg Calcium Carbonate (Calcium Carbonate 750 Mg Tab.Chew) 750 mg PO Q4H PRN PRN Reason: Heartburn Diphenhydramine HCl (Diphenhydramine Hcl 25 Mg Capsule) 50 mg PO BEDTIME [facility] Last Admin: 01/06/24 20:58 Dose: 50 mg Diphenhydramine HCl (Diphenhydramine Hcl 25 Mg Capsule) 25 mg PO DAILY [facility] Last Admin: 01/07/24 10:49 Dose: 25 mg Docusate Sodium (Docusate Sodium 100 Mg Capsule) 100 mg PO BID PRN PRN Reason: Constipation Famotidine (Famotidine 20 Mg Tablet) 20 mg PO DAILY [facility] Last Admin: 01/07/24 08:52 Dose: 20 mg Furosemide (Furosemide 40 Mg Tablet) 40 mg PO DAILY [facility]; Protocol Last Admin: 01/07/24 08:52 Dose: 40 mg Gabapentin (Gabapentin 300 Mg Capsule) 600 mg PO TID [facility] Last Admin: 01/07/24 08:52 Dose: 600 mg Guaifenesin (Guaifenesin La 600 Mg Tab.Er.12h) 1,200 mg PO Q12H PRN PRN Reason: Cough Haloperidol (Haloperidol 5 Mg Tablet) 10 mg PO BEDTIME [facility] Last Admin: 01/06/24 20:59 Dose: 10 mg Haloperidol (Haloperidol 5 Mg Tablet) 5 mg PO DAILY [facility] Last Admin: 01/07/24 10:49 Dose: 5 mg Hydroxyzine HCl (Hydroxyzine Hcl 25 Mg Tablet) 25 mg PO Q6H PRN PRN Reason: Anxiety Last Admin: 01/05/24 04:37 Dose: 25 mg Insulin Glargine (Insulin Glargine,Hum.Rec.Anlog 100 Unit/Ml 10 Ml Vial) 30 unit SUBCUT BEDTIME [facility] Last Admin: 01/06/24 20:57 Dose: 30 unit Insulin Glargine (Insulin Glargine,Hum.Rec.Anlog 100 Unit/Ml 10 Ml Vial) 30 unit SUBCUT DAILY [facility] Last Admin: 01/07/24 08:54 Dose: 30 unit Insulin Human Lispro (Insulin Lispro 100 Unit/Ml 3 Ml Vial) 0 unit SUBCUT QIDACHS [facility]; Protocol Last Admin: 01/07/24 13:08 Dose: 8 unit Loperamide HCl (Loperamide Hcl 2 Mg Capsule) 2 mg PO Q6H PRN PRN Reason: AFTER EVERY LOOSE STOOL Last Admin: 01/03/24 02:56 Dose: 2 mg Magnesium Hydroxide (Milk Of Magnesia 30 Ml Oral.Susp) 30 ml PO DAILY PRN PRN Reason: Constipation Melatonin (Melatonin 3 Mg Tablet) 6 mg PO BEDTIME PRN PRN Reason: Sleep Last Admin: 01/02/24 02:30 Dose: 6 mg Nicotine Polacrilex (Nicotine Polacrilex 2 Mg Gum) 2 mg BUCCAL Q2H PRN PRN Reason: Nicotine Cravings Ondansetron HCl (Ondansetron Odt 4 Mg Tab.Rapdis) 4 mg TRANSLINGU Q6H PRN PRN Reason: Nausea And Vomiting Sertraline HCl (Sertraline Hcl 50 Mg Tablet) 50 mg PO DAILY [facility] Last Admin: 01/07/24 08:52 Dose: 50 mg Simethicone (Simethicone 80 Mg Tab.Chew) 80 mg PO QIDWMHS [facility] Last Admin: 01/07/24 13:08 Dose: 80 mg Trazodone HCl (Trazodone Hcl 50 Mg Tablet) 50 mg PO BEDTIME MRX1 PRN PRN Reason: Insomnia Last Admin: 01/03/24 00:10 Dose: 50 mg Trazodone HCl (Trazodone Hcl 100 Mg Tablet) 200 mg PO BEDTIME [facility] Last Admin: 01/06/24 20:58 Dose: 200 mg Allergies Allergies Allergy/AdvReac Type Severity Reaction Status Date / Time shellfish derived Allergy Unknown Verified 12/26/23 18:25 Assessment & Plan Assessment & Plan (1) Major depression with psychotic features: Status: Acute Code(s): F32.3 - Major depressive disorder, single episode, severe with psychotic features (2) CHF exacerbation: Status: Acute Code(s): I50.9 - Heart failure, unspecified Plan Adult male with a past history of CHF, several other medical comorbidities such as diabetes, CHF and major depressive disorder with psychotic features transferred from a different hospital for medical concerns. Currently medically stable and transferring to this unit for psychiatric treatment. While he was initially assessed he adamantly denies hallucinations or delusions and he is able to contract for safety. Plan 1. 50 minute checks. 2. Continue with regular medications. 3. Continue with treatment for CHF and diabetes. 4. Reassessment with results. 5. Hospitalist consult to reassess insulin. 6. Increase trazodone up to 200 mg p.o. q.h.s. to target insomnia 01/04: DC zyprexa as ineffective. start trial of haldol with benadryl for EPS prophylaxis. reports of VH are dubious, sound like illusions. AH more credible. 01/05: calm, cooperative. c/o low dose of gabapentin, says he was on 800 TID previously. appears to have arrived at our facility on 300 TID. consolidate haldol and benadryl from 5/25 BID to 10/50 at HS. otherwise continue current mgmt. 01/06: outpt gabapentin 800 TID verified with pharmacy; increase carmen to 600 TID for now. +AH today. continue current mgmt otherwise. : AH in morning troubling. add haldol 5 and benadryl 25 QAM. plan to titrate carmen to 800 TID tomorrow. depressed mood reportedly improved. Reason for continued inpatient stay Substantial Risk for: inability to function and rapid decompensation Time Spent With Patient Time: Total time managing care of this patient today __25__ minutes.
[2024-01-07 17:19] LABS: Glucose, Whole Blood 279 mg/dL (60-115)
[2024-01-07 19:30] VITALS: BP 134/74; PULSE 98; RESP 14; TEMP 36.5; O2SAT 94
[2024-01-07] MEDS: Atorvastatin Calcium 20 MG TABLET PO (21:40)
[2024-01-07] MEDS: HaloperidoL 5 MG TABLET 10 MG PO (21:40)
[2024-01-07] MEDS: traZODone HCL 100 MG TABLET 200 MG PO (21:40)
[2024-01-07] MEDS: diphenhydrAMINE HCL 25 MG CAPSULE 50 MG PO (21:40)
[2024-01-08 00:18] LABS: Glucose, Whole Blood 254 mg/dL (60-115)
[2024-01-08 07:55] VITALS: BP 128/88; PULSE 96; RESP 16; TEMP 35.8; O2SAT 98
[2024-01-08 08:04] LABS: Glucose, Whole Blood 251 mg/dL (60-115)
[2024-01-08] MEDS: Insulin Lispro 100 UNIT/ML 3 ML VIAL SUBCUT ×4 (08:36→21:24)
[2024-01-08] MEDS: Gabapentin 300 MG CAPSULE 600 MG PO (08:37)
[2024-01-08] MEDS: Insulin Glargine,Hum.rec.anlog 100 UNIT/ML 10 ML VIAL 30 UNIT SUBCUT ×2 (08:37→21:25)
[2024-01-08] MEDS: Simethicone 80 MG TAB.CHEW PO ×4 (08:38→21:27)
[2024-01-08 12:37] LABS: Glucose, Whole Blood 196 mg/dL (60-115)
--- NOTE | 2024-01-08 14:24 | P.PNPSI_ITS ---
Subjective Subjective Date of Service: 01/08/24 Reason For Visit: suicidal Interim History: calm, cooperative. agreeable to increase gabapentin dosing to 800 mg TID. pt was encouraged to take morning meds which he had skipped this morning. c/o AH. no other complaints or requests. per staff, dep 5 anx 5. AH yesterday. multiple naps. slept 8+ hours overnight. declined most meds this morning. said CAH telling him not to take meds. FSBS 178, 290, 254. Mental Status Exam Mental Status Exam Narrative: He was pleasant and cooperative, adequately dressed and groomed. Speech is soft and slowed. fair eye contact. Affect is appropriate and constricted. No acute signs of psychosis but admits to auditory hallucinations. no SI/HI/VH expressed. Cognitively he is intact. Judgment is intact Diagnostics Vital Signs (24Hr): Vital Signs - 24 hr 01/07/24 19:30 01/08/24 07:55 Temperature 97.7 F 96.4 F L Pulse Rate 98 96 Respiratory Rate 14 16 Blood Pressure 134/74 128/88 Pulse Oximetry 94 98 Oxygen Delivery Method Room Air Room Air BMI result Body Mass Index 22.4 Labs 01/02/24 07:57 Labs: Laboratory Results - last 48 hr 01/06/24 01/06/24 01/07/24 17:31 20:41 07:43 POC Glucose 217 H 240 H 178 H 01/07/24 01/07/24 01/07/24 12:31 17:15 21:37 POC Glucose 290 H 279 H 254 H 01/08/24 01/08/24 08:00 12:33 POC Glucose 251 H 196 H Medications Medications Current Medications Acetaminophen (Acetaminophen 325 Mg Tablet) 975 mg PO Q6H PRN PRN Reason: Headache/Pain Mild Scale (1-3) Last Admin: 01/05/24 11:28 Dose: 975 mg Al Hydroxide/Mg Hydroxide (Magnesium Hydrox/Alum Hydrox 30 Ml Oral.Susp) 30 ml PO Q6H PRN PRN Reason: Heartburn/Nausea Atorvastatin Calcium (Atorvastatin Calcium 20 Mg Tablet) 20 mg PO BEDTIME [facility] Last Admin: 01/07/24 21:40 Dose: 20 mg Calcium Carbonate (Calcium Carbonate 750 Mg Tab.Chew) 750 mg PO Q4H PRN PRN Reason: Heartburn Diphenhydramine HCl (Diphenhydramine Hcl 25 Mg Capsule) 50 mg PO BEDTIME [facility] Last Admin: 01/07/24 21:40 Dose: 50 mg Diphenhydramine HCl (Diphenhydramine Hcl 25 Mg Capsule) 25 mg PO DAILY [facility] Last Admin: 01/08/24 10:23 Dose: Not Given Docusate Sodium (Docusate Sodium 100 Mg Capsule) 100 mg PO BID PRN PRN Reason: Constipation Famotidine (Famotidine 20 Mg Tablet) 20 mg PO DAILY [facility] Last Admin: 01/08/24 10:23 Dose: Not Given Furosemide (Furosemide 40 Mg Tablet) 40 mg PO DAILY [facility]; Protocol Last Admin: 01/08/24 10:24 Dose: Not Given Gabapentin (Gabapentin 400 Mg Capsule) 800 mg PO TID [facility] Guaifenesin (Guaifenesin La 600 Mg Tab.Er.12h) 1,200 mg PO Q12H PRN PRN Reason: Cough Haloperidol (Haloperidol 5 Mg Tablet) 10 mg PO BEDTIME [facility] Last Admin: 01/07/24 21:40 Dose: 10 mg Haloperidol (Haloperidol 5 Mg Tablet) 5 mg PO DAILY [facility] Last Admin: 01/08/24 10:24 Dose: Not Given Hydroxyzine HCl (Hydroxyzine Hcl 25 Mg Tablet) 25 mg PO Q6H PRN PRN Reason: Anxiety Last Admin: 01/05/24 04:37 Dose: 25 mg Insulin Glargine (Insulin Glargine,Hum.Rec.Anlog 100 Unit/Ml 10 Ml Vial) 30 unit SUBCUT BEDTIME [facility] Last Admin: 01/07/24 21:39 Dose: 30 unit Insulin Glargine (Insulin Glargine,Hum.Rec.Anlog 100 Unit/Ml 10 Ml Vial) 30 unit SUBCUT DAILY [facility] Last Admin: 01/08/24 08:37 Dose: 30 unit Insulin Human Lispro (Insulin Lispro 100 Unit/Ml 3 Ml Vial) 0 unit SUBCUT QIDACHS [facility]; Protocol Last Admin: 01/08/24 12:40 Dose: 2 unit Loperamide HCl (Loperamide Hcl 2 Mg Capsule) 2 mg PO Q6H PRN PRN Reason: AFTER EVERY LOOSE STOOL Last Admin: 01/03/24 02:56 Dose: 2 mg Magnesium Hydroxide (Milk Of Magnesia 30 Ml Oral.Susp) 30 ml PO DAILY PRN PRN Reason: Constipation Melatonin (Melatonin 3 Mg Tablet) 6 mg PO BEDTIME PRN PRN Reason: Sleep Last Admin: 01/02/24 02:30 Dose: 6 mg Nicotine Polacrilex (Nicotine Polacrilex 2 Mg Gum) 2 mg BUCCAL Q2H PRN PRN Reason: Nicotine Cravings Ondansetron HCl (Ondansetron Odt 4 Mg Tab.Rapdis) 4 mg TRANSLINGU Q6H PRN PRN Reason: Nausea And Vomiting Sertraline HCl (Sertraline Hcl 50 Mg Tablet) 50 mg PO DAILY [facility] Last Admin: 01/08/24 10:24 Dose: Not Given Simethicone (Simethicone 80 Mg Tab.Chew) 80 mg PO QIDWMHS [facility] Last Admin: 01/08/24 12:40 Dose: 80 mg Trazodone HCl (Trazodone Hcl 50 Mg Tablet) 50 mg PO BEDTIME MRX1 PRN PRN Reason: Insomnia Last Admin: 01/03/24 00:10 Dose: 50 mg Trazodone HCl (Trazodone Hcl 100 Mg Tablet) 200 mg PO BEDTIME [facility] Last Admin: 01/07/24 21:40 Dose: 200 mg Allergies Allergies Allergy/AdvReac Type Severity Reaction Status Date / Time shellfish derived Allergy Unknown Verified 12/26/23 18:25 Assessment & Plan Assessment & Plan (1) Major depression with psychotic features: Status: Acute Code(s): F32.3 - Major depressive disorder, single episode, severe with psychotic features (2) CHF exacerbation: Status: Acute Code(s): I50.9 - Heart failure, unspecified Plan Adult male with a past history of CHF, several other medical comorbidities such as diabetes, CHF and major depressive disorder with psychotic features transferred from a different hospital for medical concerns. Currently medically stable and transferring to this unit for psychiatric treatment. While he was initially assessed he adamantly denies hallucinations or delusions and he is able to contract for safety. Plan 1. 50 minute checks. 2. Continue with regular medications. 3. Continue with treatment for CHF and diabetes. 4. Reassessment with results. 5. Hospitalist consult to reassess insulin. 6. Increase trazodone up to 200 mg p.o. q.h.s. to target insomnia 01/04: DC zyprexa as ineffective. start trial of haldol with benadryl for EPS prophylaxis. reports of VH are dubious, sound like illusions. AH more credible. 01/05: calm, cooperative. c/o low dose of gabapentin, says he was on 800 TID previously. appears to have arrived at our facility on 300 TID. consolidate haldol and benadryl from 04/02 BID to 10/50 at HS. otherwise continue current mgmt. 01/06: outpt gabapentin 800 TID verified with pharmacy; increase carmen to 600 TID for now. +AH today. continue current mgmt otherwise. : AH in morning troubling. add haldol 5 and benadryl 25 QAM. plan to titrate carmen to 800 TID tomorrow. depressed mood reportedly improved. 01/07: refused most morning meds today, reporting CAH telling him not to take them. increased gabapentin to 800 TID as of this afternoon. otherwise continue current mgmt. Reason for continued inpatient stay Substantial Risk for: inability to function and rapid decompensation Time Spent With Patient Time: Total time managing care of this patient today __25__ minutes.
[2024-01-08] MEDS: Gabapentin 400 MG CAPSULE 800 MG PO ×2 (16:21→21:28)
[2024-01-08 17:31] LABS: Glucose, Whole Blood 361 mg/dL (60-115)
[2024-01-08 21:10] LABS: Glucose, Whole Blood 212 mg/dL (60-115)
[2024-01-08] MEDS: traZODone HCL 100 MG TABLET 200 MG PO (21:27)
[2024-01-08] MEDS: HaloperidoL 5 MG TABLET 10 MG PO (21:28)
[2024-01-08] MEDS: Atorvastatin Calcium 20 MG TABLET PO (21:28)
[2024-01-08] MEDS: diphenhydrAMINE HCL 25 MG CAPSULE 50 MG PO (21:28)
[2024-01-08 21:53] VITALS: BP 132/71; PULSE 98; RESP 18; TEMP 36.8; O2SAT 98
[2024-01-09 08:48] LABS: Glucose, Whole Blood 195 mg/dL (60-115)
[2024-01-09 08:52] VITALS: BP 123/69; PULSE 96; RESP 16; TEMP 36.1; O2SAT 97
[2024-01-09] MEDS: Insulin Lispro 100 UNIT/ML 3 ML VIAL SUBCUT ×4 (08:54→21:21)
[2024-01-09] MEDS: Insulin Glargine,Hum.rec.anlog 100 UNIT/ML 10 ML VIAL 30 UNIT SUBCUT ×2 (08:54→21:22)
[2024-01-09] MEDS: HaloperidoL 5 MG TABLET PO (08:55)
[2024-01-09] MEDS: Simethicone 80 MG TAB.CHEW PO ×4 (08:55→21:24)
[2024-01-09] MEDS: Gabapentin 400 MG CAPSULE 800 MG PO ×3 (08:55→21:24)
[2024-01-09] MEDS: Sertraline HCL 50 MG TABLET PO (08:56)
[2024-01-09] MEDS: Furosemide 40 MG TABLET PO (08:56)
[2024-01-09] MEDS: Famotidine 20 MG TABLET PO (08:56)
[2024-01-09] MEDS: diphenhydrAMINE HCL 25 MG CAPSULE PO (08:57)
[2024-01-09 12:39] LABS: Glucose, Whole Blood 236 mg/dL (60-115)
--- NOTE | 2024-01-09 18:07 | P.PNPSI_ITS ---
Subjective Subjective Date of Service: 01/09/24 Reason For Visit: suicidal Interim History: calm, cooperative. no pain today, no AH. per staff, refused meds yesterday morning. got HS meds. slept 7 hours. Mental Status Exam Mental Status Exam Narrative: He was pleasant and cooperative, adequately dressed and groomed. Speech is soft and slowed. fair eye contact. Affect is appropriate and constricted. No auditory hallucinations. no SI/HI/VH expressed. Cognitively he is intact. Judgment is intact Diagnostics Vital Signs (24Hr): Vital Signs - 24 hr 01/08/24 21:53 01/09/24 08:52 Temperature 98.2 F 96.9 F Pulse Rate 98 96 Respiratory Rate 18 16 Blood Pressure 132/71 123/69 Pulse Oximetry 98 97 Oxygen Delivery Method Room Air Room Air BMI result Body Mass Index 22.4 Labs 01/02/24 07:57 Labs: Laboratory Results - last 48 hr 01/07/24 01/08/24 01/08/24 21:37 08:00 12:33 POC Glucose 254 H 251 H 196 H 01/08/24 01/08/24 01/09/24 17:25 21:06 08:42 POC Glucose 361 H* 212 H 195 H 01/09/24 12:36 POC Glucose 236 H Medications Medications Current Medications Acetaminophen (Acetaminophen 325 Mg Tablet) 975 mg PO Q6H PRN PRN Reason: Headache/Pain Mild Scale (1-3) Last Admin: 01/05/24 11:28 Dose: 975 mg Al Hydroxide/Mg Hydroxide (Magnesium Hydrox/Alum Hydrox 30 Ml Oral.Susp) 30 ml PO Q6H PRN PRN Reason: Heartburn/Nausea Atorvastatin Calcium (Atorvastatin Calcium 20 Mg Tablet) 20 mg PO BEDTIME [facility] Last Admin: 01/08/24 21:28 Dose: 20 mg Calcium Carbonate (Calcium Carbonate 750 Mg Tab.Chew) 750 mg PO Q4H PRN PRN Reason: Heartburn Diphenhydramine HCl (Diphenhydramine Hcl 25 Mg Capsule) 50 mg PO BEDTIME [facility] Last Admin: 01/08/24 21:28 Dose: 50 mg Diphenhydramine HCl (Diphenhydramine Hcl 25 Mg Capsule) 25 mg PO DAILY [facility] Last Admin: 01/09/24 08:57 Dose: 25 mg Docusate Sodium (Docusate Sodium 100 Mg Capsule) 100 mg PO BID PRN PRN Reason: Constipation Famotidine (Famotidine 20 Mg Tablet) 20 mg PO DAILY [facility] Last Admin: 01/09/24 08:56 Dose: 20 mg Furosemide (Furosemide 40 Mg Tablet) 40 mg PO DAILY [facility]; Protocol Last Admin: 01/09/24 08:56 Dose: 40 mg Gabapentin (Gabapentin 400 Mg Capsule) 800 mg PO TID [facility] Last Admin: 01/09/24 16:20 Dose: 800 mg Guaifenesin (Guaifenesin La 600 Mg Tab.Er.12h) 1,200 mg PO Q12H PRN PRN Reason: Cough Haloperidol (Haloperidol 5 Mg Tablet) 10 mg PO BEDTIME [facility] Last Admin: 01/08/24 21:28 Dose: 10 mg Haloperidol (Haloperidol 5 Mg Tablet) 5 mg PO DAILY [facility] Last Admin: 01/09/24 08:55 Dose: 5 mg Hydroxyzine HCl (Hydroxyzine Hcl 25 Mg Tablet) 25 mg PO Q6H PRN PRN Reason: Anxiety Last Admin: 01/05/24 04:37 Dose: 25 mg Insulin Glargine (Insulin Glargine,Hum.Rec.Anlog 100 Unit/Ml 10 Ml Vial) 30 unit SUBCUT BEDTIME [facility] Last Admin: 01/08/24 21:25 Dose: 30 unit Insulin Glargine (Insulin Glargine,Hum.Rec.Anlog 100 Unit/Ml 10 Ml Vial) 30 unit SUBCUT DAILY [facility] Last Admin: 01/09/24 08:54 Dose: 30 unit Insulin Human Lispro (Insulin Lispro 100 Unit/Ml 3 Ml Vial) 0 unit SUBCUT QIDACHS [facility]; Protocol Last Admin: 01/09/24 17:48 Dose: 12 unit Loperamide HCl (Loperamide Hcl 2 Mg Capsule) 2 mg PO Q6H PRN PRN Reason: AFTER EVERY LOOSE STOOL Last Admin: 01/03/24 02:56 Dose: 2 mg Magnesium Hydroxide (Milk Of Magnesia 30 Ml Oral.Susp) 30 ml PO DAILY PRN PRN Reason: Constipation Melatonin (Melatonin 3 Mg Tablet) 6 mg PO BEDTIME PRN PRN Reason: Sleep Last Admin: 01/02/24 02:30 Dose: 6 mg Nicotine Polacrilex (Nicotine Polacrilex 2 Mg Gum) 2 mg BUCCAL Q2H PRN PRN Reason: Nicotine Cravings Ondansetron HCl (Ondansetron Odt 4 Mg Tab.Rapdis) 4 mg TRANSLINGU Q6H PRN PRN Reason: Nausea And Vomiting Sertraline HCl (Sertraline Hcl 50 Mg Tablet) 50 mg PO DAILY [facility] Last Admin: 01/09/24 08:56 Dose: 50 mg Simethicone (Simethicone 80 Mg Tab.Chew) 80 mg PO QIDWMHS [facility] Last Admin: 01/09/24 12:42 Dose: 80 mg Trazodone HCl (Trazodone Hcl 50 Mg Tablet) 50 mg PO BEDTIME MRX1 PRN PRN Reason: Insomnia Last Admin: 01/03/24 00:10 Dose: 50 mg Trazodone HCl (Trazodone Hcl 100 Mg Tablet) 200 mg PO BEDTIME [facility] Last Admin: 01/08/24 21:27 Dose: 200 mg Allergies Allergies Allergy/AdvReac Type Severity Reaction Status Date / Time shellfish derived Allergy Unknown Verified 12/26/23 18:25 Assessment & Plan Assessment & Plan (1) Major depression with psychotic features: Status: Acute Code(s): F32.3 - Major depressive disorder, single episode, severe with psychotic features (2) CHF exacerbation: Status: Acute Code(s): I50.9 - Heart failure, unspecified Plan Adult male with a past history of CHF, several other medical comorbidities such as diabetes, CHF and major depressive disorder with psychotic features transferred from a different hospital for medical concerns. Currently medically stable and transferring to this unit for psychiatric treatment. While he was initially assessed he adamantly denies hallucinations or delusions and he is able to contract for safety. Plan 1. 50 minute checks. 2. Continue with regular medications. 3. Continue with treatment for CHF and diabetes. 4. Reassessment with results. 5. Hospitalist consult to reassess insulin. 6. Increase trazodone up to 200 mg p.o. q.h.s. to target insomnia 01/04: DC zyprexa as ineffective. start trial of haldol with benadryl for EPS prophylaxis. reports of VH are dubious, sound like illusions. AH more credible. 01/05: calm, cooperative. c/o low dose of gabapentin, says he was on 800 TID previously. appears to have arrived at our facility on 300 TID. consolidate haldol and benadryl from 04/02 BID to 10 at HS. otherwise continue current mgmt. 01/06: outpt gabapentin 800 TID verified with pharmacy; increase carmen to 600 TID for now. +AH today. continue current mgmt otherwise. : AH in morning troubling. add haldol 5 and benadryl 25 QAM. plan to titrate carmen to 800 TID tomorrow. depressed mood reportedly improved. 01/07: refused most morning meds today, reporting CAH telling him not to take them. increased gabapentin to 800 TID as of this afternoon. otherwise continue current mgmt. 01/08: med compliant. no AH today, no pain (neuropathic pain). continue current mgmt. Reason for continued inpatient stay Substantial Risk for: inability to function and rapid decompensation Time Spent With Patient Time: Total time managing care of this patient today ____ minutes.
[2024-01-09 19:47] LABS: Glucose, Whole Blood 348 mg/dL (60-115)
[2024-01-09 19:55] VITALS: BP 115/56; PULSE 110; RESP 16; TEMP 36.8; O2SAT 98
[2024-01-09 21:12] LABS: Glucose, Whole Blood 153 mg/dL (60-115)
[2024-01-09] MEDS: HaloperidoL 5 MG TABLET 10 MG PO (21:23)
[2024-01-09] MEDS: Atorvastatin Calcium 20 MG TABLET PO (21:24)
[2024-01-09] MEDS: diphenhydrAMINE HCL 25 MG CAPSULE 50 MG PO (21:24)
[2024-01-09] MEDS: traZODone HCL 100 MG TABLET 200 MG PO (21:24)
--- NOTE | 2024-01-10 02:36 | PC.NURSE ---
Marco is pleasant and cooperative. endorses depression and anxiety, suicidal/homicidal ideation, and auditory/visual hallucinations HS POC 153 patient received 2 units of coverage. sleeping in sensory room r/t roommate snoring. n behavioral concerns
[2024-01-10 08:48] LABS: Glucose, Whole Blood 193 mg/dL (60-115)
[2024-01-10 09:00] VITALS: BP 128/67; PULSE 98; RESP 16; TEMP 36.2; O2SAT 98
[2024-01-10] MEDS: Gabapentin 400 MG CAPSULE 800 MG PO ×3 (09:01→21:07)
[2024-01-10] MEDS: Simethicone 80 MG TAB.CHEW PO (09:01)
[2024-01-10] MEDS: HaloperidoL 5 MG TABLET PO (09:01)
[2024-01-10] MEDS: Insulin Glargine,Hum.rec.anlog 100 UNIT/ML 10 ML VIAL 30 UNIT SUBCUT ×2 (09:02→21:04)
[2024-01-10] MEDS: diphenhydrAMINE HCL 25 MG CAPSULE PO (09:02)
[2024-01-10] MEDS: Furosemide 40 MG TABLET PO (09:02)
[2024-01-10] MEDS: Sertraline HCL 50 MG TABLET PO (09:02)
[2024-01-10] MEDS: Famotidine 20 MG TABLET PO (09:02)
[2024-01-10] MEDS: Insulin Lispro 100 UNIT/ML 3 ML VIAL SUBCUT ×4 (09:03→21:03)
[2024-01-10 12:43] LABS: Glucose, Whole Blood 287 mg/dL (60-115)
--- NOTE | 2024-01-10 16:42 | P.PNPSI_ITS ---
Subjective Subjective Date of Service: 01/10/24 Reason For Visit: suicidal Interim History: in bed. calm, cooperative. no AH today. feeling improved. per staff, not attending groups. isolating, napping. fair hygiene. FSBS 195, 226, 348, 153. Mental Status Exam Mental Status Exam Narrative: He was pleasant and cooperative, adequately dressed and groomed. Speech is soft and slowed. fair eye contact. Affect is appropriate and constricted. No auditory hallucinations. no SI/HI/VH expressed. Cognitively he is intact. Judgment is intact Diagnostics Vital Signs (24Hr): Vital Signs - 24 hr 01/09/24 19:55 01/10/24 09:00 Temperature 98.2 F 97.2 F Pulse Rate 110 H 98 Respiratory Rate 16 16 Blood Pressure 115/56 L 128/67 Pulse Oximetry 98 98 Oxygen Delivery Method Room Air BMI result Body Mass Index 22.4 Labs 01/02/24 07:57 Labs: Laboratory Results - last 48 hr 01/08/24 01/08/24 01/09/24 17:25 21:06 08:42 POC Glucose 361 H* 212 H 195 H 01/09/24 01/09/24 01/09/24 12:36 17:40 21:06 POC Glucose 236 H 348 H 153 H 01/10/24 01/10/24 08:43 12:38 POC Glucose 193 H 287 H Medications Medications Current Medications Acetaminophen (Acetaminophen 325 Mg Tablet) 975 mg PO Q6H PRN PRN Reason: Headache/Pain Mild Scale (1-3) Last Admin: 01/05/24 11:28 Dose: 975 mg Al Hydroxide/Mg Hydroxide (Magnesium Hydrox/Alum Hydrox 30 Ml Oral.Susp) 30 ml PO Q6H PRN PRN Reason: Heartburn/Nausea Atorvastatin Calcium (Atorvastatin Calcium 20 Mg Tablet) 20 mg PO BEDTIME [facility] Last Admin: 01/09/24 21:24 Dose: 20 mg Calcium Carbonate (Calcium Carbonate 750 Mg Tab.Chew) 750 mg PO Q4H PRN PRN Reason: Heartburn Diphenhydramine HCl (Diphenhydramine Hcl 25 Mg Capsule) 50 mg PO BEDTIME [facility] Last Admin: 01/09/24 21:24 Dose: 50 mg Diphenhydramine HCl (Diphenhydramine Hcl 25 Mg Capsule) 25 mg PO DAILY [facility] Last Admin: 01/10/24 09:02 Dose: 25 mg Docusate Sodium (Docusate Sodium 100 Mg Capsule) 100 mg PO BID PRN PRN Reason: Constipation Famotidine (Famotidine 20 Mg Tablet) 20 mg PO DAILY [facility] Last Admin: 01/10/24 09:02 Dose: 20 mg Furosemide (Furosemide 40 Mg Tablet) 40 mg PO DAILY [facility]; Protocol Last Admin: 01/10/24 09:02 Dose: 40 mg Gabapentin (Gabapentin 400 Mg Capsule) 800 mg PO TID [facility] Last Admin: 01/10/24 15:34 Dose: 800 mg Guaifenesin (Guaifenesin La 600 Mg Tab.Er.12h) 1,200 mg PO Q12H PRN PRN Reason: Cough Haloperidol (Haloperidol 5 Mg Tablet) 10 mg PO BEDTIME [facility] Last Admin: 01/09/24 21:23 Dose: 10 mg Haloperidol (Haloperidol 5 Mg Tablet) 5 mg PO DAILY [facility] Last Admin: 01/10/24 09:01 Dose: 5 mg Hydroxyzine HCl (Hydroxyzine Hcl 25 Mg Tablet) 25 mg PO Q6H PRN PRN Reason: Anxiety Last Admin: 01/05/24 04:37 Dose: 25 mg Insulin Glargine (Insulin Glargine,Hum.Rec.Anlog 100 Unit/Ml 10 Ml Vial) 30 unit SUBCUT BEDTIME [facility] Last Admin: 01/09/24 21:22 Dose: 30 unit Insulin Glargine (Insulin Glargine,Hum.Rec.Anlog 100 Unit/Ml 10 Ml Vial) 30 unit SUBCUT DAILY [facility] Last Admin: 01/10/24 09:02 Dose: 30 unit Insulin Human Lispro (Insulin Lispro 100 Unit/Ml 3 Ml Vial) 0 unit SUBCUT QIDACHS [facility]; Protocol Last Admin: 01/10/24 12:49 Dose: 8 unit Loperamide HCl (Loperamide Hcl 2 Mg Capsule) 2 mg PO Q6H PRN PRN Reason: AFTER EVERY LOOSE STOOL Last Admin: 01/03/24 02:56 Dose: 2 mg Magnesium Hydroxide (Milk Of Magnesia 30 Ml Oral.Susp) 30 ml PO DAILY PRN PRN Reason: Constipation Melatonin (Melatonin 3 Mg Tablet) 6 mg PO BEDTIME PRN PRN Reason: Sleep Last Admin: 01/02/24 02:30 Dose: 6 mg Nicotine Polacrilex (Nicotine Polacrilex 2 Mg Gum) 2 mg BUCCAL Q2H PRN PRN Reason: Nicotine Cravings Ondansetron HCl (Ondansetron Odt 4 Mg Tab.Rapdis) 4 mg TRANSLINGU Q6H PRN PRN Reason: Nausea And Vomiting Sertraline HCl (Sertraline Hcl 50 Mg Tablet) 50 mg PO DAILY [facility] Last Admin: 01/10/24 09:02 Dose: 50 mg Simethicone (Simethicone 80 Mg Tab.Chew) 80 mg PO QIDWMHS [facility] Last Admin: 01/10/24 12:51 Dose: Not Given Trazodone HCl (Trazodone Hcl 50 Mg Tablet) 50 mg PO BEDTIME MRX1 PRN PRN Reason: Insomnia Last Admin: 01/03/24 00:10 Dose: 50 mg Trazodone HCl (Trazodone Hcl 100 Mg Tablet) 200 mg PO BEDTIME [facility] Last Admin: 01/09/24 21:24 Dose: 200 mg Allergies Allergies Allergy/AdvReac Type Severity Reaction Status Date / Time shellfish derived Allergy Unknown Verified 12/26/23 18:25 Assessment & Plan Assessment & Plan (1) Major depression with psychotic features: Status: Acute Code(s): F32.3 - Major depressive disorder, single episode, severe with psychotic features (2) CHF exacerbation: Status: Acute Code(s): I50.9 - Heart failure, unspecified Plan Adult male with a past history of CHF, several other medical comorbidities such as diabetes, CHF and major depressive disorder with psychotic features transferred from a different hospital for medical concerns. Currently medically stable and transferring to this unit for psychiatric treatment. While he was initially assessed he adamantly denies hallucinations or delusions and he is able to contract for safety. Plan 1. 50 minute checks. 2. Continue with regular medications. 3. Continue with treatment for CHF and diabetes. 4. Reassessment with results. 5. Hospitalist consult to reassess insulin. 6. Increase trazodone up to 200 mg p.o. q.h.s. to target insomnia 01/04: DC zyprexa as ineffective. start trial of haldol with benadryl for EPS prophylaxis. reports of VH are dubious, sound like illusions. AH more credible. 01/05: calm, cooperative. c/o low dose of gabapentin, says he was on 800 TID previously. appears to have arrived at our facility on 300 TID. consolidate haldol and benadryl from 04/02 BID to at HS. otherwise continue current mgmt. 01/06: outpt gabapentin 800 TID verified with pharmacy; increase carmen to 600 TID for now. +AH today. continue current mgmt otherwise. : AH in morning troubling. add haldol 5 and benadryl 25 QAM. plan to titrate carmen to 800 TID tomorrow. depressed mood reportedly improved. 01/07: refused most morning meds today, reporting [facility] telling him not to take them. increased gabapentin to 800 TID as of this afternoon. otherwise continue current mgmt. 01/08: med compliant. no AH today, no pain (neuropathic pain). continue current mgmt. 01/09: no AH again today, med compliant. continue current mgmt. Reason for continued inpatient stay Substantial Risk for: inability to function and rapid decompensation Time Spent With Patient Time: Total time managing care of this patient today ____ minutes.
[2024-01-10 17:47] LABS: Glucose, Whole Blood 256 mg/dL (60-115)
[2024-01-10 20:00] VITALS: BP 118/63; PULSE 100; RESP 15; TEMP 36.4; O2SAT 98
[2024-01-10 20:50] LABS: Glucose, Whole Blood 236 mg/dL (60-115)
[2024-01-10] MEDS: HaloperidoL 5 MG TABLET 10 MG PO (21:08)
[2024-01-10] MEDS: diphenhydrAMINE HCL 25 MG CAPSULE 50 MG PO (21:08)
[2024-01-10] MEDS: Atorvastatin Calcium 20 MG TABLET PO (21:09)
[2024-01-10] MEDS: traZODone HCL 100 MG TABLET 200 MG PO (21:09)
[2024-01-11 07:54] LABS: Glucose, Whole Blood 173 mg/dL (60-115)
[2024-01-11 08:15] VITALS: BP 128/70; PULSE 95; RESP 16; TEMP 36.9; O2SAT 96
[2024-01-11] MEDS: Insulin Glargine,Hum.rec.anlog 100 UNIT/ML 10 ML VIAL 30 UNIT SUBCUT ×2 (08:53→21:26)
[2024-01-11] MEDS: Insulin Lispro 100 UNIT/ML 3 ML VIAL SUBCUT ×4 (08:54→21:27)
[2024-01-11] MEDS: Gabapentin 400 MG CAPSULE 800 MG PO ×3 (08:54→21:31)
[2024-01-11] MEDS: HaloperidoL 5 MG TABLET PO (08:55)
[2024-01-11] MEDS: diphenhydrAMINE HCL 25 MG CAPSULE PO (08:55)
[2024-01-11] MEDS: Furosemide 40 MG TABLET PO (08:55)
[2024-01-11] MEDS: Sertraline HCL 50 MG TABLET PO (08:55)
[2024-01-11] MEDS: Famotidine 20 MG TABLET PO (08:55)
[2024-01-11 12:40] LABS: Glucose, Whole Blood 315 mg/dL (60-115)
--- NOTE | 2024-01-11 14:32 | HO.PSYCHPN ---
Subjective Subjective Date of Service: 01/11/24 Reason For Visit: suicidal Interim History: calm, cooperative. no AH, mood in the middle. would like to DC to half-way in [place], F/U at [facility]. amenable to discharge this week. per staff dep/anx. napping. constricted. eating well. FSBS 193, 287, 256, 236. denies AH. med-compliant. Mental Status Exam Mental Status Exam Narrative: He was pleasant and cooperative, adequately dressed and groomed. Speech is soft and slowed. fair eye contact. Affect is appropriate and constricted. No auditory hallucinations. no SI/HI/VH expressed. Cognitively he is intact. Judgment is intact Diagnostics Vital Signs (24Hr): Vital Signs - 24 hr 01/10/24 20:00 01/11/24 08:15 Temperature 97.6 F 98.4 F Pulse Rate 100 95 Respiratory Rate 15 16 Blood Pressure 118/63 128/70 Pulse Oximetry 98 96 Oxygen Delivery Method Room Air Room Air BMI result Body Mass Index 22.4 Labs 01/02/24 07:57 Labs: Laboratory Results - last 48 hr 01/09/24 01/09/24 01/10/24 17:40 21:06 08:43 POC Glucose 348 H 153 H 193 H 01/10/24 01/10/24 01/10/24 12:38 17:42 20:43 POC Glucose 287 H 256 H 236 H 01/11/24 01/11/24 07:50 12:36 POC Glucose 173 H 315 H Medications Medications Current Medications Acetaminophen (Acetaminophen 325 Mg Tablet) 975 mg PO Q6H PRN PRN Reason: Headache/Pain Mild Scale (1-3) Last Admin: 01/05/24 11:28 Dose: 975 mg Al Hydroxide/Mg Hydroxide (Magnesium Hydrox/Alum Hydrox 30 Ml Oral.Susp) 30 ml PO Q6H PRN PRN Reason: Heartburn/Nausea Atorvastatin Calcium (Atorvastatin Calcium 20 Mg Tablet) 20 mg PO BEDTIME [facility] Last Admin: 01/10/24 21:09 Dose: 20 mg Calcium Carbonate (Calcium Carbonate 750 Mg Tab.Chew) 750 mg PO Q4H PRN PRN Reason: Heartburn Diphenhydramine HCl (Diphenhydramine Hcl 25 Mg Capsule) 50 mg PO BEDTIME [facility] Last Admin: 01/10/24 21:08 Dose: 50 mg Diphenhydramine HCl (Diphenhydramine Hcl 25 Mg Capsule) 25 mg PO DAILY [facility] Last Admin: 01/11/24 08:55 Dose: 25 mg Docusate Sodium (Docusate Sodium 100 Mg Capsule) 100 mg PO BID PRN PRN Reason: Constipation Famotidine (Famotidine 20 Mg Tablet) 20 mg PO DAILY [facility] Last Admin: 01/11/24 08:55 Dose: 20 mg Furosemide (Furosemide 40 Mg Tablet) 40 mg PO DAILY [facility]; Protocol Last Admin: 01/11/24 08:55 Dose: 40 mg Gabapentin (Gabapentin 400 Mg Capsule) 800 mg PO TID [facility] Last Admin: 01/11/24 08:54 Dose: 800 mg Guaifenesin (Guaifenesin La 600 Mg Tab.Er.12h) 1,200 mg PO Q12H PRN PRN Reason: Cough Haloperidol (Haloperidol 5 Mg Tablet) 10 mg PO BEDTIME [facility] Last Admin: 01/10/24 21:08 Dose: 10 mg Haloperidol (Haloperidol 5 Mg Tablet) 5 mg PO DAILY [facility] Last Admin: 01/11/24 08:55 Dose: 5 mg Hydroxyzine HCl (Hydroxyzine Hcl 25 Mg Tablet) 25 mg PO Q6H PRN PRN Reason: Anxiety Last Admin: 01/05/24 04:37 Dose: 25 mg Insulin Glargine (Insulin Glargine,Hum.Rec.Anlog 100 Unit/Ml 10 Ml Vial) 30 unit SUBCUT BEDTIME [facility] Last Admin: 01/10/24 21:04 Dose: 30 unit Insulin Glargine (Insulin Glargine,Hum.Rec.Anlog 100 Unit/Ml 10 Ml Vial) 30 unit SUBCUT DAILY [facility] Last Admin: 01/11/24 08:53 Dose: 30 unit Insulin Human Lispro (Insulin Lispro 100 Unit/Ml 3 Ml Vial) 0 unit SUBCUT QIDACHS [facility]; Protocol Last Admin: 01/11/24 12:44 Dose: 12 unit Loperamide HCl (Loperamide Hcl 2 Mg Capsule) 2 mg PO Q6H PRN PRN Reason: AFTER EVERY LOOSE STOOL Last Admin: 01/03/24 02:56 Dose: 2 mg Magnesium Hydroxide (Milk Of Magnesia 30 Ml Oral.Susp) 30 ml PO DAILY PRN PRN Reason: Constipation Melatonin (Melatonin 3 Mg Tablet) 6 mg PO BEDTIME PRN PRN Reason: Sleep Last Admin: 01/02/24 02:30 Dose: 6 mg Nicotine Polacrilex (Nicotine Polacrilex 2 Mg Gum) 2 mg BUCCAL Q2H PRN PRN Reason: Nicotine Cravings Ondansetron HCl (Ondansetron Odt 4 Mg Tab.Rapdis) 4 mg TRANSLINGU Q6H PRN PRN Reason: Nausea And Vomiting Sertraline HCl (Sertraline Hcl 50 Mg Tablet) 50 mg PO DAILY [facility] Last Admin: 01/11/24 08:55 Dose: 50 mg Simethicone (Simethicone 80 Mg Tab.Chew) 80 mg PO QIDWMHS [facility] Last Admin: 01/11/24 13:50 Dose: Not Given Trazodone HCl (Trazodone Hcl 50 Mg Tablet) 50 mg PO BEDTIME MRX1 PRN PRN Reason: Insomnia Last Admin: 01/03/24 00:10 Dose: 50 mg Trazodone HCl (Trazodone Hcl 100 Mg Tablet) 200 mg PO BEDTIME [facility] Last Admin: 01/10/24 21:09 Dose: 200 mg Allergies Allergies Allergy/AdvReac Type Severity Reaction Status Date / Time shellfish derived Allergy Unknown Verified 12/26/23 18:25 Assessment & Plan Assessment & Plan (1) Major depression with psychotic features: Status: Acute Code(s): F32.3 - Major depressive disorder, single episode, severe with psychotic features (2) CHF exacerbation: Status: Acute Code(s): I50.9 - Heart failure, unspecified Plan Adult male with a past history of CHF, several other medical comorbidities such as diabetes, CHF and major depressive disorder with psychotic features transferred from a different hospital for medical concerns. Currently medically stable and transferring to this unit for psychiatric treatment. While he was initially assessed he adamantly denies hallucinations or delusions and he is able to contract for safety. Plan 1. 50 minute checks. 2. Continue with regular medications. 3. Continue with treatment for CHF and diabetes. 4. Reassessment with results. 5. Hospitalist consult to reassess insulin. 6. Increase trazodone up to 200 mg p.o. q.h.s. to target insomnia 01/04: DC zyprexa as ineffective. start trial of haldol with benadryl for EPS prophylaxis. reports of VH are dubious, sound like illusions. AH more credible. 01/05: calm, cooperative. c/o low dose of gabapentin, says he was on 800 TID previously. appears to have arrived at our facility on 300 TID. consolidate haldol and benadryl from 04/02 BID to at HS. otherwise continue current mgmt. 01/06: outpt gabapentin 800 TID verified with pharmacy; increase carmen to 600 TID for now. +AH today. continue current mgmt otherwise. : AH in morning troubling. add haldol 5 and benadryl 25 QAM. plan to titrate carmen to 800 TID tomorrow. depressed mood reportedly improved. 01/07: refused most morning meds today, reporting [facility] telling him not to take them. increased gabapentin to 800 TID as of this afternoon. otherwise continue current mgmt. 01/08: med compliant. no AH today, no pain (neuropathic pain). continue current mgmt. 01/09: no AH again today, med compliant. continue current mgmt. 01/10: as for yesterday. appears stable, begin discharge planning for [place]. Reason for continued inpatient stay Substantial Risk for: inability to function and rapid decompensation Time Spent With Patient Time: Total time managing care of this patient today __25__ minutes.
[2024-01-11 17:39] LABS: Glucose, Whole Blood 298 mg/dL (60-115)
[2024-01-11 20:25] VITALS: BP 131/61; PULSE 100; RESP 18; TEMP 36.6; O2SAT 96
[2024-01-11 21:01] LABS: Glucose, Whole Blood 214 mg/dL (60-115)
[2024-01-11] MEDS: traZODone HCL 100 MG TABLET 200 MG PO (21:29)
[2024-01-11] MEDS: HaloperidoL 5 MG TABLET 10 MG PO (21:30)
[2024-01-11] MEDS: diphenhydrAMINE HCL 25 MG CAPSULE 50 MG PO (21:31)
[2024-01-11] MEDS: Atorvastatin Calcium 20 MG TABLET PO (21:32)
[2024-01-12 07:58] LABS: Glucose, Whole Blood 213 mg/dL (60-115)
[2024-01-12 08:18] VITALS: BP 119/59; PULSE 96; RESP 18; TEMP 36.5; O2SAT 97
[2024-01-12] MEDS: Famotidine 20 MG TABLET PO (08:29)
[2024-01-12] MEDS: Sertraline HCL 50 MG TABLET PO (08:29)
[2024-01-12] MEDS: diphenhydrAMINE HCL 25 MG CAPSULE PO (08:30)
[2024-01-12] MEDS: HaloperidoL 5 MG TABLET PO (08:30)
[2024-01-12] MEDS: Furosemide 40 MG TABLET PO (08:30)
[2024-01-12] MEDS: Gabapentin 400 MG CAPSULE 800 MG PO ×3 (08:31→22:25)
[2024-01-12] MEDS: Insulin Lispro 100 UNIT/ML 3 ML VIAL SUBCUT ×2 (08:32→17:45)
[2024-01-12] MEDS: Insulin Glargine,Hum.rec.anlog 100 UNIT/ML 10 ML VIAL 30 UNIT SUBCUT ×2 (08:32→22:29)
[2024-01-12 12:00] LABS: Glucose, Whole Blood 136 mg/dL (60-115)
--- NOTE | 2024-01-12 15:21 | HO.PSYCHPN ---
Subjective Subjective Date of Service: 01/12/24 Reason For Visit: suicidal Interim History: calm, cooperative. no complaints or requests. per staff, c/o dep/anx. flat. taking meals and meds. POC in 200s. slept 8+ hours. feet no longer edematous. planning to DC or thursday. Mental Status Exam Mental Status Exam Narrative: He was pleasant and cooperative, adequately dressed and groomed. Speech is soft and slowed. fair eye contact. Affect is appropriate and constricted. No auditory hallucinations. no SI/HI/VH expressed. Cognitively he is intact. Judgment is intact Diagnostics Vital Signs (24Hr): Vital Signs - 24 hr 01/11/24 20:25 01/12/24 08:18 Temperature 98 F 97.7 F Pulse Rate 100 96 Respiratory Rate 18 18 Blood Pressure 131/61 119/59 L Pulse Oximetry 96 97 Oxygen Delivery Method Room Air Room Air BMI result Body Mass Index 22.4 Labs 01/02/24 07:57 Labs: Laboratory Results - last 48 hr 01/10/24 01/10/24 01/11/24 17:42 20:43 07:50 POC Glucose 256 H 236 H 173 H 01/11/24 01/11/24 01/11/24 12:36 17:35 20:57 POC Glucose 315 H 298 H 214 H 01/12/24 01/12/24 07:52 11:55 POC Glucose 213 H 136 H Medications Medications Current Medications Acetaminophen (Acetaminophen 325 Mg Tablet) 975 mg PO Q6H PRN PRN Reason: Headache/Pain Mild Scale (1-3) Last Admin: 01/05/24 11:28 Dose: 975 mg Al Hydroxide/Mg Hydroxide (Magnesium Hydrox/Alum Hydrox 30 Ml Oral.Susp) 30 ml PO Q6H PRN PRN Reason: Heartburn/Nausea Atorvastatin Calcium (Atorvastatin Calcium 20 Mg Tablet) 20 mg PO BEDTIME [facility] Last Admin: 01/11/24 21:32 Dose: 20 mg Calcium Carbonate (Calcium Carbonate 750 Mg Tab.Chew) 750 mg PO Q4H PRN PRN Reason: Heartburn Diphenhydramine HCl (Diphenhydramine Hcl 25 Mg Capsule) 50 mg PO BEDTIME [facility] Last Admin: 01/11/24 21:31 Dose: 50 mg Diphenhydramine HCl (Diphenhydramine Hcl 25 Mg Capsule) 25 mg PO DAILY [facility] Last Admin: 01/12/24 08:30 Dose: 25 mg Docusate Sodium (Docusate Sodium 100 Mg Capsule) 100 mg PO BID PRN PRN Reason: Constipation Famotidine (Famotidine 20 Mg Tablet) 20 mg PO DAILY [facility] Last Admin: 01/12/24 08:29 Dose: 20 mg Furosemide (Furosemide 40 Mg Tablet) 40 mg PO DAILY [facility]; Protocol Last Admin: 01/12/24 08:30 Dose: 40 mg Gabapentin (Gabapentin 400 Mg Capsule) 800 mg PO TID [facility] Last Admin: 01/12/24 14:48 Dose: 800 mg Guaifenesin (Guaifenesin La 600 Mg Tab.Er.12h) 1,200 mg PO Q12H PRN PRN Reason: Cough Haloperidol (Haloperidol 5 Mg Tablet) 10 mg PO BEDTIME [facility] Last Admin: 01/11/24 21:30 Dose: 10 mg Haloperidol (Haloperidol 5 Mg Tablet) 5 mg PO DAILY [facility] Last Admin: 01/12/24 08:30 Dose: 5 mg Hydroxyzine HCl (Hydroxyzine Hcl 25 Mg Tablet) 25 mg PO Q6H PRN PRN Reason: Anxiety Last Admin: 01/05/24 04:37 Dose: 25 mg Insulin Glargine (Insulin Glargine,Hum.Rec.Anlog 100 Unit/Ml 10 Ml Vial) 30 unit SUBCUT BEDTIME [facility] Last Admin: 01/11/24 21:26 Dose: 30 unit Insulin Glargine (Insulin Glargine,Hum.Rec.Anlog 100 Unit/Ml 10 Ml Vial) 30 unit SUBCUT DAILY [facility] Last Admin: 01/12/24 08:32 Dose: 30 unit Insulin Human Lispro (Insulin Lispro 100 Unit/Ml 3 Ml Vial) 0 unit SUBCUT QIDACHS [facility]; Protocol Loperamide HCl (Loperamide Hcl 2 Mg Capsule) 2 mg PO Q6H PRN PRN Reason: AFTER EVERY LOOSE STOOL Last Admin: 01/03/24 02:56 Dose: 2 mg Magnesium Hydroxide (Milk Of Magnesia 30 Ml Oral.Susp) 30 ml PO DAILY PRN PRN Reason: Constipation Melatonin (Melatonin 3 Mg Tablet) 6 mg PO BEDTIME PRN PRN Reason: Sleep Last Admin: 01/02/24 02:30 Dose: 6 mg Nicotine Polacrilex (Nicotine Polacrilex 2 Mg Gum) 2 mg BUCCAL Q2H PRN PRN Reason: Nicotine Cravings Ondansetron HCl (Ondansetron Odt 4 Mg Tab.Rapdis) 4 mg TRANSLINGU Q6H PRN PRN Reason: Nausea And Vomiting Sertraline HCl (Sertraline Hcl 50 Mg Tablet) 50 mg PO DAILY [facility] Last Admin: 01/12/24 08:29 Dose: 50 mg Simethicone (Simethicone 80 Mg Tab.Chew) 80 mg PO QIDWMHS [facility] Last Admin: 01/12/24 12:39 Dose: Not Given Trazodone HCl (Trazodone Hcl 50 Mg Tablet) 50 mg PO BEDTIME MRX1 PRN PRN Reason: Insomnia Last Admin: 01/03/24 00:10 Dose: 50 mg Trazodone HCl (Trazodone Hcl 100 Mg Tablet) 200 mg PO BEDTIME [facility] Last Admin: 01/11/24 21:29 Dose: 200 mg Allergies Allergies Allergy/AdvReac Type Severity Reaction Status Date / Time shellfish derived Allergy Unknown Verified 12/26/23 18:25 Assessment & Plan Assessment & Plan (1) Major depression with psychotic features: Status: Acute Code(s): F32.3 - Major depressive disorder, single episode, severe with psychotic features (2) CHF exacerbation: Status: Acute Code(s): I50.9 - Heart failure, unspecified Plan Adult male with a past history of CHF, several other medical comorbidities such as diabetes, CHF and major depressive disorder with psychotic features transferred from a different hospital for medical concerns. Currently medically stable and transferring to this unit for psychiatric treatment. While he was initially assessed he adamantly denies hallucinations or delusions and he is able to contract for safety. Plan 1. 50 minute checks. 2. Continue with regular medications. 3. Continue with treatment for CHF and diabetes. 4. Reassessment with results. 5. Hospitalist consult to reassess insulin. 6. Increase trazodone up to 200 mg p.o. q.h.s. to target insomnia 01/04: DC zyprexa as ineffective. start trial of haldol with benadryl for EPS prophylaxis. reports of VH are dubious, sound like illusions. AH more credible. 01/05: calm, cooperative. c/o low dose of gabapentin, says he was on 800 TID previously. appears to have arrived at our facility on 300 TID. consolidate haldol and benadryl from 04/02 BID to at HS. otherwise continue current mgmt. 01/06: outpt gabapentin 800 TID verified with pharmacy; increase carmen to 600 TID for now. +AH today. continue current mgmt otherwise. : AH in morning troubling. add haldol 5 and benadryl 25 QAM. plan to titrate carmen to 800 TID tomorrow. depressed mood reportedly improved. 01/07: refused most morning meds today, reporting [facility] telling him not to take them. increased gabapentin to 800 TID as of this afternoon. otherwise continue current mgmt. 01/08: med compliant. no AH today, no pain (neuropathic pain). continue current mgmt. 01/09: no AH again today, med compliant. continue current mgmt. 01/10: as for yesterday. appears stable, begin discharge planning for [place]. 01/11: stable. continue current mgmt. Reason for continued inpatient stay Substantial Risk for: inability to function and rapid decompensation Time Spent With Patient Time: Total time managing care of this patient today __25__ minutes.
[2024-01-12 17:09] LABS: Glucose, Whole Blood 237 mg/dL (60-115)
[2024-01-12 19:52] VITALS: BP 115/61; PULSE 100; RESP 18; TEMP 35.7; O2SAT 98
[2024-01-12] MEDS: traZODone HCL 100 MG TABLET 200 MG PO (22:25)
[2024-01-12] MEDS: diphenhydrAMINE HCL 25 MG CAPSULE 50 MG PO (22:26)
[2024-01-12] MEDS: HaloperidoL 5 MG TABLET 10 MG PO (22:26)
[2024-01-12] MEDS: Atorvastatin Calcium 20 MG TABLET PO (22:26)
[2024-01-13 02:56] LABS: Glucose, Whole Blood 203 mg/dL (60-115)
[2024-01-13 08:31] LABS: Glucose, Whole Blood 126 mg/dL (60-115)
[2024-01-13 08:40] VITALS: BP 113/67; PULSE 92; RESP 16; TEMP 35.9; O2SAT 96
[2024-01-13] MEDS: Famotidine 20 MG TABLET PO (08:40)
[2024-01-13] MEDS: diphenhydrAMINE HCL 25 MG CAPSULE PO (08:40)
[2024-01-13] MEDS: Sertraline HCL 50 MG TABLET PO (08:41)
[2024-01-13] MEDS: HaloperidoL 5 MG TABLET PO (08:41)
[2024-01-13] MEDS: Furosemide 40 MG TABLET PO (08:41)
[2024-01-13] MEDS: Gabapentin 400 MG CAPSULE 800 MG PO ×3 (08:42→22:18)
[2024-01-13] MEDS: Insulin Glargine,Hum.rec.anlog 100 UNIT/ML 10 ML VIAL 30 UNIT SUBCUT (08:46)
[2024-01-13 12:38] LABS: Glucose, Whole Blood 338 mg/dL (60-115)
[2024-01-13] MEDS: Insulin Lispro 100 UNIT/ML 3 ML VIAL SUBCUT ×2 (12:38→18:05)
--- NOTE | 2024-01-13 15:09 | P.PNPSI_ITS ---
Subjective Subjective Date of Service: 01/13/24 Reason For Visit: suicidal Interim History: calm, cooperative. no AH. mood OK. slept well. aware of thursday discharge plan. per staff, anx 6, dep 1. increased visibility in the milieu. FSBS 213, 136, 237, 203. slept 8+ hours. Mental Status Exam Mental Status Exam Narrative: He was pleasant and cooperative, adequately dressed and groomed. Speech is soft and slowed. fair eye contact. Affect is appropriate and constricted. No auditory hallucinations. no SI/HI/VH expressed. Cognitively he is intact. Judgment is intact Diagnostics Vital Signs (24Hr): Vital Signs - 24 hr 01/12/24 19:52 01/13/24 08:40 Temperature 96.3 F L 96.7 F L Pulse Rate 100 92 Respiratory Rate 18 16 Blood Pressure 115/61 113/67 Pulse Oximetry 98 96 Oxygen Delivery Method Room Air Room Air BMI result Body Mass Index 22.4 Labs 01/02/24 07:57 Labs: Laboratory Results - last 48 hr 01/11/24 01/11/24 01/12/24 17:35 20:57 07:52 POC Glucose 298 H 214 H 213 H 01/12/24 01/12/24 01/12/24 11:55 17:04 22:14 POC Glucose 136 H 237 H 203 H 01/13/24 01/13/24 08:27 12:33 POC Glucose 126 H 338 H Medications Medications Current Medications Acetaminophen (Acetaminophen 325 Mg Tablet) 975 mg PO Q6H PRN PRN Reason: Headache/Pain Mild Scale (1-3) Last Admin: 01/05/24 11:28 Dose: 975 mg Al Hydroxide/Mg Hydroxide (Magnesium Hydrox/Alum Hydrox 30 Ml Oral.Susp) 30 ml PO Q6H PRN PRN Reason: Heartburn/Nausea Atorvastatin Calcium (Atorvastatin Calcium 20 Mg Tablet) 20 mg PO BEDTIME [facility] Last Admin: 01/12/24 22:26 Dose: 20 mg Calcium Carbonate (Calcium Carbonate 750 Mg Tab.Chew) 750 mg PO Q4H PRN PRN Reason: Heartburn Diphenhydramine HCl (Diphenhydramine Hcl 25 Mg Capsule) 50 mg PO BEDTIME [facility] Last Admin: 01/12/24 22:26 Dose: 50 mg Diphenhydramine HCl (Diphenhydramine Hcl 25 Mg Capsule) 25 mg PO DAILY [facility] Last Admin: 01/13/24 08:40 Dose: 25 mg Docusate Sodium (Docusate Sodium 100 Mg Capsule) 100 mg PO BID PRN PRN Reason: Constipation Famotidine (Famotidine 20 Mg Tablet) 20 mg PO DAILY [facility] Last Admin: 01/13/24 08:40 Dose: 20 mg Furosemide (Furosemide 40 Mg Tablet) 40 mg PO DAILY [facility]; Protocol Last Admin: 01/13/24 08:41 Dose: 40 mg Gabapentin (Gabapentin 400 Mg Capsule) 800 mg PO TID [facility] Last Admin: 01/13/24 08:42 Dose: 800 mg Guaifenesin (Guaifenesin La 600 Mg Tab.Er.12h) 1,200 mg PO Q12H PRN PRN Reason: Cough Haloperidol (Haloperidol 5 Mg Tablet) 10 mg PO BEDTIME [facility] Last Admin: 01/12/24 22:26 Dose: 10 mg Haloperidol (Haloperidol 5 Mg Tablet) 5 mg PO DAILY [facility] Last Admin: 01/13/24 08:41 Dose: 5 mg Hydroxyzine HCl (Hydroxyzine Hcl 25 Mg Tablet) 25 mg PO Q6H PRN PRN Reason: Anxiety Last Admin: 01/05/24 04:37 Dose: 25 mg Insulin Glargine (Insulin Glargine,Hum.Rec.Anlog 100 Unit/Ml 10 Ml Vial) 30 unit SUBCUT BEDTIME [facility] Last Admin: 01/12/24 22:29 Dose: 30 unit Insulin Glargine (Insulin Glargine,Hum.Rec.Anlog 100 Unit/Ml 10 Ml Vial) 30 unit SUBCUT DAILY [facility] Last Admin: 01/13/24 08:46 Dose: 30 unit Insulin Human Lispro (Insulin Lispro 100 Unit/Ml 3 Ml Vial) 0 unit SUBCUT QIDACHS [facility]; Protocol Last Admin: 01/13/24 12:38 Dose: 12 unit Loperamide HCl (Loperamide Hcl 2 Mg Capsule) 2 mg PO Q6H PRN PRN Reason: AFTER EVERY LOOSE STOOL Last Admin: 01/03/24 02:56 Dose: 2 mg Magnesium Hydroxide (Milk Of Magnesia 30 Ml Oral.Susp) 30 ml PO DAILY PRN PRN Reason: Constipation Melatonin (Melatonin 3 Mg Tablet) 6 mg PO BEDTIME PRN PRN Reason: Sleep Last Admin: 01/02/24 02:30 Dose: 6 mg Nicotine Polacrilex (Nicotine Polacrilex 2 Mg Gum) 2 mg BUCCAL Q2H PRN PRN Reason: Nicotine Cravings Ondansetron HCl (Ondansetron Odt 4 Mg Tab.Rapdis) 4 mg TRANSLINGU Q6H PRN PRN Reason: Nausea And Vomiting Sertraline HCl (Sertraline Hcl 50 Mg Tablet) 50 mg PO DAILY [facility] Last Admin: 01/13/24 08:41 Dose: 50 mg Trazodone HCl (Trazodone Hcl 50 Mg Tablet) 50 mg PO BEDTIME MRX1 PRN PRN Reason: Insomnia Last Admin: 01/03/24 00:10 Dose: 50 mg Trazodone HCl (Trazodone Hcl 100 Mg Tablet) 200 mg PO BEDTIME [facility] Last Admin: 01/12/24 22:25 Dose: 200 mg Allergies Allergies Allergy/AdvReac Type Severity Reaction Status Date / Time shellfish derived Allergy Unknown Verified 12/26/23 18:25 Assessment & Plan Assessment & Plan (1) Major depression with psychotic features: Status: Acute Code(s): F32.3 - Major depressive disorder, single episode, severe with psychotic features (2) CHF exacerbation: Status: Acute Code(s): I50.9 - Heart failure, unspecified Plan Adult male with a past history of CHF, several other medical comorbidities such as diabetes, CHF and major depressive disorder with psychotic features transferred from a different hospital for medical concerns. Currently medically stable and transferring to this unit for psychiatric treatment. While he was initially assessed he adamantly denies hallucinations or delusions and he is able to contract for safety. Plan 1. 50 minute checks. 2. Continue with regular medications. 3. Continue with treatment for CHF and diabetes. 4. Reassessment with results. 5. Hospitalist consult to reassess insulin. 6. Increase trazodone up to 200 mg p.o. q.h.s. to target insomnia 01/04: DC zyprexa as ineffective. start trial of haldol with benadryl for EPS prophylaxis. reports of VH are dubious, sound like illusions. AH more credible. 01/05: calm, cooperative. c/o low dose of gabapentin, says he was on 800 TID previously. appears to have arrived at our facility on 300 TID. consolidate haldol and benadryl from 04/02 BID to at . otherwise continue current mgmt. 01/06: outpt gabapentin 800 TID verified with pharmacy; increase carmen to 600 TID for now. +AH today. continue current mgmt otherwise. : AH in morning troubling. add haldol 5 and benadryl 25 QAM. plan to titrate carmen to 800 TID tomorrow. depressed mood reportedly improved. 01/07: refused most morning meds today, reporting [facility] telling him not to take them. increased gabapentin to 800 TID as of this afternoon. otherwise continue current mgmt. 01/08: med compliant. no AH today, no pain (neuropathic pain). continue current mgmt. 01/09: no AH again today, med compliant. continue current mgmt. 01/10: as for yesterday. appears stable, begin discharge planning for [place]. 01/11: stable. continue current mgmt. 01/12: continues stable, no AH. hospitalist requested to review FSBS and make any adjustments to insulin needed. planning for thursday discharge. Reason for continued inpatient stay Substantial Risk for: inability to function and rapid decompensation Time Spent With Patient Time: Total time managing care of this patient today __25__ minutes.
[2024-01-13 18:04] LABS: Glucose, Whole Blood 278 mg/dL (60-115)
[2024-01-13 20:10] VITALS: BP 113/60; PULSE 97; RESP 16; TEMP 37.1; O2SAT 95
[2024-01-13 21:47] LABS: Glucose, Whole Blood 146 mg/dL (60-115)
[2024-01-13] MEDS: traZODone HCL 100 MG TABLET 200 MG PO (22:18)
[2024-01-13] MEDS: Atorvastatin Calcium 20 MG TABLET PO (22:18)
[2024-01-13] MEDS: HaloperidoL 5 MG TABLET 10 MG PO (22:18)
[2024-01-13] MEDS: diphenhydrAMINE HCL 25 MG CAPSULE 50 MG PO (22:18)
[2024-01-13] MEDS: Insulin Glargine,Hum.rec.anlog 100 UNIT/ML 10 ML VIAL 32 UNIT SUBCUT (22:20)
[2024-01-14 08:18] LABS: Glucose, Whole Blood 131 mg/dL (60-115)
[2024-01-14] MEDS: Famotidine 20 MG TABLET PO (08:35)
[2024-01-14] MEDS: Gabapentin 400 MG CAPSULE 800 MG PO ×3 (08:35→21:39)
[2024-01-14] MEDS: Sertraline HCL 50 MG TABLET PO (08:35)
[2024-01-14] MEDS: Furosemide 40 MG TABLET PO (08:36)
[2024-01-14] MEDS: diphenhydrAMINE HCL 25 MG CAPSULE PO (08:36)
[2024-01-14] MEDS: HaloperidoL 5 MG TABLET PO (08:36)
[2024-01-14 08:39] VITALS: BP 134/58; PULSE 90; RESP 18; TEMP 36.4; O2SAT 98
[2024-01-14] MEDS: Insulin Glargine,Hum.rec.anlog 100 UNIT/ML 10 ML VIAL 32 UNIT SUBCUT ×2 (08:42→21:40)
--- NOTE | 2024-01-14 09:17 | HO.PSYCHPN ---
Subjective Subjective Date of Service: 01/14/24 Reason For Visit: suicidal Subjective Notes: Conditional Voluntary Interim History: Reviewed with Dr. Rose. Keeping to self. Observed out in the [place]. attending groups. He reports doing okay ; pt stated, I'm feeling anxious about going home tomorrow because of all the errands I have to run . denies SI/HI/VH/AH. Medication Compliance: Yes Side effects from medications: No Attending Groups: Yes Review of Systems Constitutional: Reports as per HPI Eyes: Reports as per HPI Reports as per HPI Cardiovascular: Reports as per HPI Respiratory: Reports as per HPI Gastrointestinal: Reports as per HPI Genitourinary: Reports as per HPI Musculoskeletal: Reports as per HPI Skin/Breast: Reports as per HPI Reports as per HPI Psychiatric: Reports as per HPI Endocrine: Reports as per HPI Hematologic/Lymphatic: Reports as per HPI Allergic/Immunologic: Reports as per HPI Mental Status Exam Mental Status Exam Narrative: Pt is alert and oriented; behavior is cooperative and calm; dressed in casual attire; mood is described as good ; eye contact appropriate; Speech is normal rate, volume and prosody and not pressured; thought process is organized and goal directed; Thought content is on discharge; denies SI/HI/VH/AH. Diagnostics Vital Signs (24Hr): Vital Signs - 24 hr 01/13/24 20:10 01/14/24 08:39 Temperature 98.7 F 97.6 F Pulse Rate 97 90 Respiratory Rate 16 18 Blood Pressure 113/60 134/58 L Pulse Oximetry 95 98 Oxygen Delivery Method Room Air Room Air BMI result Body Mass Index 22.4 Labs 01/02/24 07:57 Labs: Laboratory Results - last 48 hr 01/12/24 01/12/24 01/12/24 11:55 17:04 22:14 POC Glucose 136 H 237 H 203 H 01/13/24 01/13/24 01/13/24 08:27 12:33 17:59 POC Glucose 126 H 338 H 278 H 01/13/24 01/14/24 21:43 08:13 POC Glucose 146 H 131 H Medications Medications Current Medications Acetaminophen (Acetaminophen 325 Mg Tablet) 975 mg PO Q6H PRN PRN Reason: Headache/Pain Mild Scale (1-3) Last Admin: 01/05/24 11:28 Dose: 975 mg Al Hydroxide/Mg Hydroxide (Magnesium Hydrox/Alum Hydrox 30 Ml Oral.Susp) 30 ml PO Q6H PRN PRN Reason: Heartburn/Nausea Atorvastatin Calcium (Atorvastatin Calcium 20 Mg Tablet) 20 mg PO BEDTIME [facility] Last Admin: 01/13/24 22:18 Dose: 20 mg Calcium Carbonate (Calcium Carbonate 750 Mg Tab.Chew) 750 mg PO Q4H PRN PRN Reason: Heartburn Diphenhydramine HCl (Diphenhydramine Hcl 25 Mg Capsule) 50 mg PO BEDTIME [facility] Last Admin: 01/13/24 22:18 Dose: 50 mg Diphenhydramine HCl (Diphenhydramine Hcl 25 Mg Capsule) 25 mg PO DAILY [facility] Last Admin: 01/14/24 08:36 Dose: 25 mg Docusate Sodium (Docusate Sodium 100 Mg Capsule) 100 mg PO BID PRN PRN Reason: Constipation Famotidine (Famotidine 20 Mg Tablet) 20 mg PO DAILY [facility] Last Admin: 01/14/24 08:35 Dose: 20 mg Furosemide (Furosemide 40 Mg Tablet) 40 mg PO DAILY [facility]; Protocol Last Admin: 01/14/24 08:36 Dose: 40 mg Gabapentin (Gabapentin 400 Mg Capsule) 800 mg PO TID [facility] Last Admin: 01/14/24 08:35 Dose: 800 mg Guaifenesin (Guaifenesin La 600 Mg Tab.Er.12h) 1,200 mg PO Q12H PRN PRN Reason: Cough Haloperidol (Haloperidol 5 Mg Tablet) 10 mg PO BEDTIME [facility] Last Admin: 01/13/24 22:18 Dose: 10 mg Haloperidol (Haloperidol 5 Mg Tablet) 5 mg PO DAILY [facility] Last Admin: 01/14/24 08:36 Dose: 5 mg Hydroxyzine HCl (Hydroxyzine Hcl 25 Mg Tablet) 25 mg PO Q6H PRN PRN Reason: Anxiety Last Admin: 01/05/24 04:37 Dose: 25 mg Insulin Glargine (Insulin Glargine,Hum.Rec.Anlog 100 Unit/Ml 10 Ml Vial) 32 unit SUBCUT BEDTIME [facility] Last Admin: 01/13/24 22:20 Dose: 32 unit Insulin Glargine (Insulin Glargine,Hum.Rec.Anlog 100 Unit/Ml 10 Ml Vial) 32 unit SUBCUT DAILY [facility] Last Admin: 01/14/24 08:42 Dose: 32 unit Insulin Human Lispro (Insulin Lispro 100 Unit/Ml 3 Ml Vial) 0 unit SUBCUT QIDACHS [facility]; Protocol Last Admin: 01/14/24 08:20 Dose: Not Given Loperamide HCl (Loperamide Hcl 2 Mg Capsule) 2 mg PO Q6H PRN PRN Reason: AFTER EVERY LOOSE STOOL Last Admin: 01/03/24 02:56 Dose: 2 mg Magnesium Hydroxide (Milk Of Magnesia 30 Ml Oral.Susp) 30 ml PO DAILY PRN PRN Reason: Constipation Melatonin (Melatonin 3 Mg Tablet) 6 mg PO BEDTIME PRN PRN Reason: Sleep Last Admin: 01/02/24 02:30 Dose: 6 mg Nicotine Polacrilex (Nicotine Polacrilex 2 Mg Gum) 2 mg BUCCAL Q2H PRN PRN Reason: Nicotine Cravings Ondansetron HCl (Ondansetron Odt 4 Mg Tab.Rapdis) 4 mg TRANSLINGU Q6H PRN PRN Reason: Nausea And Vomiting Sertraline HCl (Sertraline Hcl 50 Mg Tablet) 50 mg PO DAILY [facility] Last Admin: 01/14/24 08:35 Dose: 50 mg Trazodone HCl (Trazodone Hcl 50 Mg Tablet) 50 mg PO BEDTIME MRX1 PRN PRN Reason: Insomnia Last Admin: 01/03/24 00:10 Dose: 50 mg Trazodone HCl (Trazodone Hcl 100 Mg Tablet) 200 mg PO BEDTIME [facility] Last Admin: 01/13/24 22:18 Dose: 200 mg Allergies Allergies Allergy/AdvReac Type Severity Reaction Status Date / Time shellfish derived Allergy Unknown Verified 12/26/23 18:25 Assessment & Plan Assessment & Plan (1) Major depression with psychotic features: Status: Acute Code(s): F32.3 - Major depressive disorder, single episode, severe with psychotic features (2) CHF exacerbation: Status: Acute Code(s): I50.9 - Heart failure, unspecified Plan Adult male with a past history of CHF, several other medical comorbidities such as diabetes, CHF and major depressive disorder with psychotic features transferred from a different hospital for medical concerns. Currently medically stable and transferring to this unit for psychiatric treatment. While he was initially assessed he adamantly denies hallucinations or delusions and he is able to contract for safety. Plan 1. 50 minute checks. 2. Continue with regular medications. 3. Continue with treatment for CHF and diabetes. 4. Reassessment with results. 5. Hospitalist consult to reassess insulin. 6. Increase trazodone up to 200 mg p.o. q.h.s. to target insomnia 01/04: DC zyprexa as ineffective. start trial of haldol with benadryl for EPS prophylaxis. reports of VH are dubious, sound like illusions. AH more credible. 01/05: calm, cooperative. c/o low dose of gabapentin, says he was on 800 TID previously. appears to have arrived at our facility on 300 TID. consolidate haldol and benadryl from 04/02 BID to at HS. otherwise continue current mgmt. 01/06: outpt gabapentin 800 TID verified with pharmacy; increase carmen to 600 TID for now. +AH today. continue current mgmt otherwise. : AH in morning troubling. add haldol 5 and benadryl 25 QAM. plan to titrate carmen to 800 TID tomorrow. depressed mood reportedly improved. 01/07: refused most morning meds today, reporting [facility] telling him not to take them. increased gabapentin to 800 TID as of this afternoon. otherwise continue current mgmt. 2: med compliant. no AH today, no pain (neuropathic pain). continue current mgmt. 01/09: no AH again today, med compliant. continue current mgmt. 01/10: as for yesterday. appears stable, begin discharge planning for [place]. 01/11: stable. continue current mgmt. 01/12: continues stable, no AH. hospitalist requested to review FSBS and make any adjustments to insulin needed. planning for thursday discharge. 01/13: continue current tx plan. Patient educated on: diagnosis and medication risk/benefits Informed Consent: understands Reason for continued inpatient stay Substantial Risk for: med/psych decompensation Time Spent With Patient Time: Total time managing care of this patient today _20___ minutes.
[2024-01-14 12:54] LABS: Glucose, Whole Blood 224 mg/dL (60-115)
[2024-01-14] MEDS: Insulin Lispro 100 UNIT/ML 3 ML VIAL SUBCUT ×2 (13:00→21:50)
[2024-01-14 15:18] LABS: COVID-19 Test Positive (Negative); IDNOW Serial# 152EDE1D
[2024-01-14 17:34] LABS: Glucose, Whole Blood 135 mg/dL (60-115)
[2024-01-14] MEDS: Atorvastatin Calcium 20 MG TABLET PO (21:39)
[2024-01-14] MEDS: diphenhydrAMINE HCL 25 MG CAPSULE 50 MG PO (21:39)
[2024-01-14 21:40] VITALS: BP 133/76; PULSE 78; RESP 18; TEMP 36.2; O2SAT 99
[2024-01-14] MEDS: HaloperidoL 5 MG TABLET 10 MG PO (21:40)
[2024-01-14] MEDS: traZODone HCL 100 MG TABLET 200 MG PO (21:41)
[2024-01-14] MEDS: traZODone HCL 50 MG TABLET PO (21:41)
[2024-01-14 21:42] LABS: Glucose, Whole Blood 307 mg/dL (60-115)
[2024-01-14] MEDS: Melatonin 3 MG TABLET 6 MG PO (21:42)
[2024-01-14] MEDS: Acetaminophen 325 MG TABLET 975 MG PO (21:42)
[2024-01-15 08:47] LABS: Glucose, Whole Blood 99 mg/dL (60-115)
[2024-01-15] MEDS: Gabapentin 400 MG CAPSULE 800 MG PO (08:56)
[2024-01-15] MEDS: HaloperidoL 5 MG TABLET PO (08:56)
[2024-01-15] MEDS: Famotidine 20 MG TABLET PO (08:57)
[2024-01-15] MEDS: Furosemide 40 MG TABLET PO (08:57)
[2024-01-15] MEDS: Sertraline HCL 50 MG TABLET PO (08:57)
[2024-01-15] MEDS: diphenhydrAMINE HCL 25 MG CAPSULE PO (08:57)
[2024-01-15] MEDS: Insulin Glargine,Hum.rec.anlog 100 UNIT/ML 10 ML VIAL 32 UNIT SUBCUT (08:58)
--- NOTE | 2024-01-15 10:26 | P.DS_ITS ---
DS: Providers Provider Date of Service: 01/15/24 Date of admission: 01/01/24 18:20 Primary care physician: Unknown Physician Consults: 01/03/24 14:56 Consult to Hospitalist Routine Comment: Consulting Provider: Hospitalist Reason For Exam: Reassessment of INH treatment DS: Diagnosis Discharge Diagnosis (1) Major depression with psychotic features: Status: Acute (2) CHF exacerbation: Status: Acute DS: Medications Discharge Medications Home Medications: Home Medications Medication Instructions Recorded Confirmed Colace 100 mg PO BID PRN Constipation 12/26/23 01/01/24 insulin lispro See Protocol subcut QIDACHS 12/26/23 01/01/24 nicotine (polacrilex) 2 mg PO Q2H PRN Nicotine Cravings 12/26/23 01/01/24 calcium carbonate 500 mg calcium 500 mg PO Q4H PRN Heartburn 12/27/23 01/01/24 (1,250 mg) chewable tablet (Calcium 500) Previous Rx's Medication Instructions Recorded atorvastatin 20 mg PO BEDTIME 30 days #30 tabs 01/15/24 atorvastatin 20 mg tablet 20 mg PO BEDTIME 30 days #30 tabs 01/15/24 diphenhydramine HCl 25 mg capsule See Rx Instructions .Route 01/15/24 .COMPLEX 30 days #90 caps famotidine 20 mg PO DAILY 30 days #30 tabs 01/15/24 famotidine 20 mg tablet 20 mg PO DAILY 30 days #30 tabs 01/15/24 furosemide 40 mg tablet 40 mg PO DAILY 30 days #30 tabs 01/15/24 gabapentin 400 mg capsule 800 mg (2 x 400 mg) PO TID 30 days 01/15/24 #180 caps haloperidol 5 mg tablet See Rx Instructions .Route 01/15/24 .COMPLEX #90 tabs insulin glargine 100 unit/mL 32 unit (0.32 mL) subcut BID 30 01/15/24 subcutaneous solution (Lantus days #19.2 mL U-100 Insulin) melatonin 6 mg PO BEDTIME PRN Sleep 30 days 01/15/24 #30 tabs melatonin 3 mg tablet 6 mg (2 x 3 mg) PO BEDTIME PRN 01/15/24 Sleep 30 days #60 tabs sertraline 50 mg PO DAILY 30 days #30 tabs 01/15/24 sertraline 50 mg tablet 50 mg PO DAILY 30 days #30 tabs 01/15/24 trazodone 100 mg tablet 200 mg (2 x 100 mg) PO BEDTIME 30 01/15/24 days #60 tabs Mental Status Exam Mental Status Exam Narrative: Pt is alert and oriented; behavior is cooperative and calm; dressed in casual attire; mood is described as good ; eye contact appropriate; Speech is normal rate, volume and prosody and not pressured; thought process is organized and goal directed; Thought content is on discharge; denies SI/SIBI/HI/VH/AH. Data Data Completed and Pending Completed studies during hospitalization [Text1]: 01/08/24 01/08/24 01/08/24 12:33 17:25 21:06 POC Glucose 196 H 361 H* 212 H COVID-19 ([facility]) COVID-19 Clin Com 01/09/24 01/09/24 01/09/24 08:42 12:36 17:40 POC Glucose 195 H 236 H 348 H COVID-19 ([facility]) COVID-19 Clin Com 01/09/24 01/10/24 01/10/24 21:06 08:43 12:38 POC Glucose 153 H 193 H 287 H COVID-19 ([facility]) COVID-19 Clin Com 01/10/24 01/10/24 01/11/24 17:42 20:43 07:50 POC Glucose 256 H 236 H 173 H COVID-19 ([facility]MI) COVID-19 Clin Com 01/11/24 01/11/24 01/11/24 12:36 17:35 20:57 POC Glucose 315 H 298 H 214 H COVID-19 ([facility]MI) COVID-19 Clin Com 01/12/24 01/12/24 01/12/24 07:52 11:55 17:04 POC Glucose 213 H 136 H 237 H COVID-19 ([facility]MI) COVID-19 Clin Com 01/12/24 01/13/24 01/13/24 22:14 08:27 12:33 POC Glucose 203 H 126 H 338 H COVID-19 ([facility]) COVID-19 Clin Com 01/13/24 01/13/24 01/14/24 17:59 21:43 08:13 POC Glucose 278 H 146 H 131 H COVID-19 ([facility]) COVID-19 Clin Com 01/14/24 01/14/2424 12:49 14:39 17:28 POC Glucose 224 H 135 H COVID-19 ([facility]MI) Positive A COVID-19 Clin Com See Note 01/14/24 01/15/24 21:29 08:40 POC Glucose 307 H 99 COVID-19 (DEMI) COVID-19 Clin Com DS: Summary Hospital Course Hospital Course: per 01/02/24 admission note: The patient is a 48-year-old male, with a past history of COPD, CHF admitted initially to [facility] and transfer since he was having respiratory symptoms. He was admitted initially to [facility] due to pleural effusion and sign and symptoms of CHF uncontrolled. The patient was been medically stable and transferring to this facility for psychiatric stabilization. On transfer, his vital signs were stable he reported feeling much better still with some suicidal thoughts. The patient was being followed by the psychiatric team while he was on [facility]. On interview, the patient reports depressive symptoms elicited by depressed mood, anhedonia, lack of energy, feelings of hopelessness but no active suicidal ideation. The staff has noticed that he had good appetite and he slept well last night. He has been fully compliant with treatment. He signed himself into the facility was conditional voluntary. While he was interview the patient reported that he was feeling very tired and he was superficially cooperative with the interview. Past Psychiatric History: Several inpatient hospitalizations. No recent outpatient connections Medical Evaluation Reviewed: Yes [facility] Medical History Severe major depression with psychotic features H/O insulin dependent diabetes mellitus Family History: Unknown Substance History: Denies Trauma History: Unknown Precis: Adult male with a past history of CHF, several other medical comorbidities such as diabetes, CHF and major depressive disorder with psychotic features transferred from a different hospital for medical concerns. Currently medically stable and transferring to this unit for psychiatric treatment. While he was initially assessed he adamantly denies hallucinations or delusions and he is able to contract for safety. 01/02-01/03: 15 minute checks. Continue with regular medications. Continue with treatment for CHF and diabetes. Hospitalist consult to reassess insulin. Increase trazodone up to 200 mg p.o. q.h.s. to target insomnia 01/04: DC zyprexa as ineffective. start trial of haldol with benadryl for EPS prophylaxis. reports of VH are dubious, sound like illusions. AH more credible. 01/05: calm, cooperative. c/o low dose of gabapentin, says he was on 800 TID previously. appears to have arrived at our facility on 300 TID. consolidate haldol and benadryl from 04/02 BID to 10/50 at HS. otherwise continue current mgmt. 01/06: outpt gabapentin 800 TID verified with pharmacy; increase carmen to 600 TID for now. +AH today. continue current mgmt otherwise. : AH in morning troubling. add haldol 5 and benadryl 25 QAM. plan to titrate carmen to 800 TID tomorrow. depressed mood reportedly improved. 01/07: refused most morning meds today, reporting [facility] telling him not to take them. increased gabapentin to 800 TID as of this afternoon. otherwise continue current mgmt. 01/08: med compliant. no AH today, no pain (neuropathic pain). continue current mgmt. 01/09: no AH again today, med compliant. continue current mgmt. 01/10: as for yesterday. appears stable, begin discharge planning for [place]. 01/11: stable. continue current mgmt. 01/12: continues stable, no AH. hospitalist requested to review FSBS and make any adjustments to insulin needed. planning for thursday discharge. 01/13: continue current tx plan. 01/14: stable. calm, cooperative. no AH. meds reviewed, reconciled, presc ribed. discharged to home as per plan. Time Spent with Patient Time attestation: Total time managing care of this patient today __35__ minutes. Time spent: Greater than 30 minutes Discharge Plan Discharge Anticipated Discharge Date/Time: 01/15/24 10:17 Patient Disposition: Home, Self-Care Discharge Diagnosis: Major Depressive Disorder with Psychotic Features CHF Exacerbation Referrals: Therapy & Psychiatry [Other] - 1 Week (Please follow up with [facility] regarding follow up aftercare. ) Savanna Huerta NP-C [Nurse Practitioner] - 1 Week (PCP [phone] OFFICE WILL CALL PT DIRECTLY TO BOOK APPT.) Discharge Medications: New diphenhydramine HCl 25 mg Capsule See Rx Instructions .ROUTE .COMPLEX 30 Days Qty: 90 0RF Rx Instructions: take one tab in the morning and two tabs at bedtime haloperidol 5 mg Tablet See Rx Instructions .ROUTE .COMPLEX Qty: 90 0RF Rx Instructions: 1 tab in the morning and 2 tabs at bedtime. gabapentin 400 mg Capsule 800 mg PO TID 30 Days Qty: 180 0RF insulin glargine [Lantus U-100 Insulin] 100 unit/mL Solution 32 unit subcut BID 30 Days Qty: 19.2 0RF trazodone 100 mg Tablet 200 mg PO BEDTIME 30 Days Qty: 60 0RF atorvastatin 20 mg Tablet 20 mg PO BEDTIME 30 Days Qty: 30 0RF melatonin 3 mg Tablet 6 mg PO BEDTIME PRN (Reason: Sleep) 30 Days Qty: 60 0RF famotidine 20 mg Tablet 20 mg PO DAILY 30 Days Qty: 30 0RF sertraline 50 mg Tablet 50 mg PO DAILY 30 Days Qty: 30 0RF Continued insulin lispro 100 units/ml auto-injector See Protocol subcut QIDACHS Protocol: Insulin Correction Scale Less than or equal to 110 ---- Give (units): 0 111 to 150 Give (units): 0 151 to 200 Give (units): 2 201 to 250 Give (units): 4 251 to 300 Give (units): 6 301 to 350 Give (units): 8 Greater than 350 Give (units): 10 Call MD if Blood Glucose > : 350 Rx Instructions: last dose not indicated on dc form Colace 100 mg capsule 100 mg PO BID PRN (Reason: Constipation) nicotine (polacrilex) 2 mg gum 2 mg PO Q2H PRN (Reason: Nicotine Cravings) Patient Comments: smokes daily calcium carbonate [Calcium 500] 500 mg calcium (1,250 mg) Tablet,Chewable 500 mg PO Q4H PRN (Reason: Heartburn) furosemide 40 mg Tablet 40 mg PO DAILY 30 Days Qty: 30 0RF Protocol: Hold for SBP< HOLD for SBP < : 90 atorvastatin 20 mg 20 mg PO BEDTIME 30 Days Qty: 30 0RF famotidine 20 mg 20 mg PO DAILY 30 Days Qty: 30 0RF melatonin 6 mg tablet 6 mg PO BEDTIME PRN (Reason: Sleep) 30 Days Qty: 30 0RF sertraline 50 mg tablet 50 mg PO DAILY 30 Days Qty: 30 0RF Discontinued gabapentin 300 mg 300 mg PO TID insulin glargine 37 unit 37 units subcut BEDTIME olanzapine 10 mg tablet 10 mg PO DAILY olanzapine 10 mg tablet 10 mg PO BEDTIME Patient Comments: New from [facility]. hydroxyzine pamoate 50 mg capsule 50 mg PO TID PRN (Reason: Anxiety) Patient Comments: was taking at [facility] ondansetron 4 mg tablet 4 mg PO Q6H PRN (Reason: Nausea And Vomiting) trazodone 100 mg tablet 100 mg PO BEDTIME PRN (Reason: Insomnia) loperamide 2 mg Capsule 2 mg PO Q6H PRN (Reason: AFTER EVERY LOOSE STOOL ) Patient Comments: reports episodic diarrhea guaifenesin 600 mg Tablet Extended Release 12hr 1,200 mg PO Q12H PRN (Reason: Cough) Rx Instructions: NOT TO EXCEED 2400 MG IN 24 HRS Discharge Orders: Discharge Order (Routine); Ordered 01/15/24 Ordered By: Guillermo Langley Diet: Diabetic diet Activity on Discharge: As tolerated Stand Alone Forms: Patient Portal Discharge page, Community Support Care Plan Goals: remain safe and stable in the outpatient treatment setting Health Concerns: Diabetes Mellitus Congestive Heart Failure Plan of Treatment: take medications as prescribed, attend appointments as scheduled Assessment: not at imminent risk of harm to elf or others Discharge Date/Time: 01/15/24 11:20
== END 2024-01-15 11:20 | disposition home or self-care (01) | DRG 885 ==
PROVIDERS: Psychiatry & Neurology Psychiatry; Student in an Organized Health Care Education/Training Program; Admitting Provider Registered Nurse; Visit Provider Psychiatry & Neurology Psychiatry
DX: F32.3 Major depressive disorder, single episode, severe with psychotic features (principal); U07.1 COVID-19; Z59.02 Unsheltered homelessness; I50.9 Heart failure, unspecified; F17.210 Nicotine dependence, cigarettes, uncomplicated; E11.9 Type 2 diabetes mellitus without complications; J44.9 Chronic obstructive pulmonary disease, unspecified; Z79.4 Long term (current) use of insulin; Z79.899 Other long term (current) drug therapy
CPT/HCPCS: 36415; 80053; 80061; 82947; 83036; 87635

== ENCOUNTER → 2024-01-01 18:20 | Outpatient (BNV) | payer OTHER, SELFPAY | PROVIDERS: Admitting Provider Registered Nurse; Visit Provider Psychiatry & Neurology Psychiatry | DX: F33.3 Major depressive disorder, recurrent, severe with psychotic symptoms (principal); I50.9 Heart failure, unspecified | CPT/HCPCS: 99231; 99232; 99499 ==

== ENCOUNTER 2024-02-02 00:30 | Inpatient (IN) | payer MEDICAID, SELFPAY ==
[2024-02-02] VITALS (13 sets, daily range): BP systolic 80–150; BP diastolic 48–84; PULSE 86–100; RESP 12–18; TEMP 36.4–37; O2SAT 96–98; BMI 25.2
--- NOTE | ~2024-02-02 | CT_ITS ---
EXAMINATION: CT HEAD WITHOUT CONTRAST CLINICAL INFORMATION: Unsteady gait, fall COMPARISON: None available. TECHNIQUE: Contiguous axial imaging was performed from the skull base to vertex without intravenous administration of contrast. This CT examination was performed using dose optimization techniques as appropriate, variously including the following: *Automated exposure control *Adjustment of mA and/or kV according to patient size (this includes techniques or standardized protocols for targeted exams where dose is matched to indication/reason for exam; i.e. extremities or head) *Use of iterative reconstruction technique DLP: 615 mGy-cm FINDINGS: Limited evaluation towards the skull base due to motion artifact. There is no evidence of acute intracranial hemorrhage or territorial infarction. No abnormal mass-effect or midline shift is seen. Trevino to white matter differentiation is well preserved. No extra-axial fluid collections are identified. The ventricles are normal in size. Mild volume loss is noted. There is mild periventricular white matter hypoattenuation consistent with chronic small vessel ischemic disease. The osseous structures and soft tissues are normal. The mastoid air cells and visualized portions of the paranasal sinuses are relatively well-aerated. CT/CT head/brain wo IV con IMPRESSION: Limited evaluation towards the skull base due to motion artifact. No acute intracranial pathology identified.
--- NOTE | 2024-02-02 00:41 | ED.FALL ---
HPI - Fall General Chief Complaint: Syncope Stated Complaint: FALL Time Seen by Provider: 02/02/24 00:41 Source: patient and EMS Mode of arrival: EMS Limitations: no limitations History of Present Illness HPI Narrative: Patient from [place] with history of major depression with psychotic features and CHF came here as he was getting up to get the juice felt lightheaded and slumped down without any significant head injury or loss of consciousness mild contusion of the right elbow has unsteady gait for last 2 weeks blood pressure at senior care was 85/58 Related Data Home Medications Medication Instructions Recorded Confirmed Colace 100 mg PO BID PRN Constipation 12/26/23 01/01/24 insulin lispro See Protocol subcut QIDACHS 12/26/23 01/01/24 nicotine (polacrilex) 2 mg PO Q2H PRN Nicotine Cravings 12/26/23 01/01/24 calcium carbonate 500 mg calcium 500 mg PO Q4H PRN Heartburn 12/27/23 01/01/24 (1,250 mg) chewable tablet (Calcium 500) Previous Rx's Medication Instructions Recorded atorvastatin 20 mg PO BEDTIME 30 days #30 tabs 01/15/24 atorvastatin 20 mg tablet 20 mg PO BEDTIME 30 days #30 tabs 01/15/24 diphenhydramine HCl 25 mg capsule See Rx Instructions .Route 01/15/24 .COMPLEX 30 days #90 caps famotidine 20 mg PO DAILY 30 days #30 tabs 01/15/24 famotidine 20 mg tablet 20 mg PO DAILY 30 days #30 tabs 01/15/24 furosemide 40 mg tablet 40 mg PO DAILY 30 days #30 tabs 01/15/24 gabapentin 400 mg capsule 800 mg (2 x 400 mg) PO TID 30 days 01/15/24 #180 caps haloperidol 5 mg tablet See Rx Instructions .Route 01/15/24 .COMPLEX #90 tabs insulin glargine 100 unit/mL 32 unit (0.32 mL) subcut BID 30 01/15/24 subcutaneous solution (Lantus days #19.2 mL U-100 Insulin) melatonin 6 mg PO BEDTIME PRN Sleep 30 days 01/15/24 #30 tabs melatonin 3 mg tablet 6 mg (2 x 3 mg) PO BEDTIME PRN 01/15/24 Sleep 30 days #60 tabs sertraline 50 mg PO DAILY 30 days #30 tabs 01/15/24 sertraline 50 mg tablet 50 mg PO DAILY 30 days #30 tabs 01/15/24 trazodone 100 mg tablet 200 mg (2 x 100 mg) PO BEDTIME 30 01/15/24 days #60 tabs Allergies Allergy/AdvReac Type Severity Reaction Status Date / Time No Known Allergies Allergy Verified 02/02/24 00:42 Review of Systems Review of Systems: Yes all other systems are reviewed and are negative PMFSH Past Medical History Medical History Severe major depression with psychotic features H/O insulin dependent diabetes mellitus Social History Social History Household Members: Friend(s) Housing: Apartment Do you presently have visiting nurse or other home services: No Alcohol intake: current Alcohol intake frequency: holidays/special occasions only Comment: 1:1 Sitter Patient Tobacco Use Status: Current everyday Tobacco user Tobacco use type: Cigarette Cigarette Packs Per Day: 1.5 Cigarettes Per Day: 30.0 Years Smoked: more than 10 Smoked in Last 30 Days: Yes e-Cigarette/Vaping Use: Never Used Second Hand Smoke Exposure: Yes Use of substances other than those prescribed or required for medical reasons: Yes Substance Use Type: Crack/Cocaine Advance Directives: No Advance Directives Information Provided: No service: No Sexual orientation: Straight/Heterosexual Physical Exam Vital Signs: Vital Signs: Last Vital Signs Temp 98.3 F 02/02/24 07:26 Pulse 100 02/02/24 07:26 Resp 12 02/02/24 07:26 BP 144/82 H 02/02/24 07:26 Pulse Ox 98 02/02/24 07:26 O2 Del Method Room Air 02/02/24 07:26 BMI result Body Mass Index 25.2 Appearance: Alert. Oriented X3. No acute distress. Slow to speak orthostatic hypotension+ Eyes: PERRLA, No Nystagmus ENT: Pharynx normal. Oral Mucosa moist AT NC Neck: Normal inspection. Neck supple. CVS: Normal heart rate and rhythm. Pulses normal. Respiratory: No respiratory distress. Equal air entry bilateral, no wheezing/rales/rhonchi Abdomen: Soft and nontender. Bowel sounds are present, no mass palpable, no CVA tenderness Skin: Skin warm and dry. Normal skin color. Normal skin turgor. Extremities: No lower extremity edema. No calf tenderness Neuro: Oriented X 3. No motor deficit. No sensory deficit.No cerebellar signs , cranial nerves II-XII intact Medications Administered Discontinued Medications Generic Name Dose Route Start Last Admin Trade Name Freq PRN Reason Stop Dose Admin Sodium Chloride 1,000 mls @ 999 mls/hr 02/02/24 00:54 02/02/24 02:15 Ns IV 02/02/24 01:54 Infused .Q1H1M ONE Infusion Sodium Chloride 1,000 mls @ 999 mls/hr 02/02/24 03:55 02/02/24 05:02 Ns IV 02/02/24 04:55 Infused .Q1H1M ONE Infusion Medical Decision Making Medical Decision Making [facility] Narrative: Patient has significant orthostatic hypotension received 2 L of normal saline still hypotensive on standing with normal sinus rate. Also lab workup showed CIARRA creatinine of 1.69 will admit patient for further evaluation CT head is negative Differential Diagnosis Differential Diagnoses: The differential diagnosis associated with the presentation includes Hypovolemia/metabolic program management analyst/Jefe's crisis/POTS Admission/Observation Consideration of admission/observation: Escalation of care including admission/observation considered Consult Healthcare Provider Management of the patient was discussed with: Hospitalist Lab Data [facility] Lab Attestation statement: I reviewed the patient's lab results. 02/02/24 01:09 02/02/24 01:09 Labs: Lab Results 02/02/24 Range/Units 01:09 WBC 7.2 (4.8-10.8) X10*3/uL RBC 3.75 L D (4.60-5.80) X10*6/uL Hgb 10.9 L D (14.0-18.0) g/dl Hct 33.4 L D (42.0-52.0) % MCV 89.1 (80.0-98.0) fL MCH 29.1 (27.0-33.0) pg MCHC 32.6 (31.0-36.0) g/dl RDW 14.1 (11.0-16.0) % Plt Count 339 D (160-400) X10*3/uL MPV 8.4 L (9.4-12.4) fL Immature Gran % (Auto) 0.3 (0.0-0.4) % Neut % (Auto) 47.7 (45-73) % Lymph % (Auto) 36.7 (20-40) % Keith % (Auto) 9.5 (2-11) % Eos % (Auto) 5.4 H (0-4) % Baso % (Auto) 0.4 (0-2) % Lymph # (Auto) 2.7 (1.2-4.9) X10*3/uL Keith # (Auto) 0.7 (0.1-1.2) X10*3/uL Eos # (Auto) 0.4 (0.0-0.4) X10*3/uL Baso # (Auto) 0.0 (0.0-0.2) X10*3/uL Abs Immat Gran (auto) 0.02 (0.00-0.03) X10*3/uL Absolute Neuts (auto) 3.5 (2.0-8.3) x10*3/uL Absolute Nucleated RBC 0.000 (0.0-0.012) X10*3/uL Nucleated RBC % (auto) 0.0 (0.0-0.2) /100WBC Sodium 138 (135-145) mmol/L Potassium 4.9 (3.3-5.1) mmol/L Chloride 100 (96-108) mmol/L Carbon Dioxide 29 (22-29) mmol/L Anion Gap 14 (12-20) BUN 33 H (9-16) mg/dL Creatinine 1.69 H (0.5-1.4) mg/dL Estim Creat Clear Calc 51.1 Estimated GFR 43 Random Glucose 172 H (60-115) mg/dL Calcium 9.7 (8.4-10.2) mg/dL Magnesium 2.1 (1.6-2.6) mg/dL Total Bilirubin 0.2 (0.0-1.0) mg/dL AST 18 (5-37) U/L ALT 15 (0-40) U/L Alkaline Phosphatase 131 H (39-117) U/L Troponin I High Sens < 2.7 (<3.5-35.0) ng/L Total Protein 7.3 (6.5-8.0) g/dL Albumin 3.7 (3.5-5.0) g/dL Independent Interpretation I performed an independent interpretation of an: EKG Interpretation: Normal sinus rhythm heart rate 94 beats per minute normal interval normal axis no acute ST-T changes no acute ischemia Discharge Plan Discharge Clinical Impression: Orthostatic hypotension, Acute kidney failure Patient Disposition: Admitted As Inpatient
--- NOTE | 2024-02-02 00:54 | ECG_ITS ---
Test Reason : DIZZINESS Blood Pressure : / mmHG Vent. Rate : 094 BPM Atrial Rate : 094 BPM P-R Int : 160 ms QRS Dur : 072 ms QT Int : 346 ms P-R-T Axes : 061 046 024 degrees QTc Int : 432 ms Normal sinus rhythm Normal ECG When compared with ECG of 26-DEC-2023 17:30, No significant change was found Referred By: Rigoberto Snowden Electronically Signed By:Daniel Huddleston
[2024-02-02] MEDS: 0.9 % Sodium Chloride 1,000 ML 999 ML IV ×2 (01:10→03:59)
[2024-02-02 01:13] LABS: MANUAL DIFF FLAG NO
[2024-02-02 01:15] LABS: Basophils Percent Auto 0.4 % (0-2); Eosinophils Absolute Auto 0.4 X10*3/uL (0.0-0.4); Eosinophils Percent Auto 5.4 % (0-4); Hematocrit 33.4 % (42.0-52.0); Hemoglobin 10.9 g/dl (14.0-18.0); Imm Gran Abs Auto 0.02 X10*3/uL (0.00-0.03); Imm Gran Pct Auto 0.3 % (0.0-0.4); Lymphocytes Absolute Auto 2.7 X10*3/uL (1.2-4.9); Lymphocytes Percent Auto 36.7 % (20-40); Mean Corpuscular HGB Conc 32.6 g/dl (31.0-36.0); Mean Corpuscular Hemoglobin 29.1 pg (27.0-33.0); Mean Corpuscular Volume 89.1 fL (80.0-98.0); Mean Platelet Volume 8.4 fL (9.4-12.4); Monocytes Absolute Auto 0.7 X10*3/uL (0.1-1.2); Monocytes Percent Auto 9.5 % (2-11); Neutrophils Absolute Auto 3.5 x10*3/uL (2.0-8.3); Neutrophils Percent Auto 47.7 % (45-73); Platelet Count 339 X10*3/uL (160-400); Red Blood Count 3.75 X10*6/uL (4.60-5.80); Red Cell Distribution Width 14.1 % (11.0-16.0); White Blood Count 7.2 X10*3/uL (4.8-10.8)
[2024-02-02 01:31] LABS: Alanine Aminotransferase 15 U/L (0-40); Albumin Level 3.7 g/dL (3.5-5.0); Alkaline Phosphatase 131 U/L (39-117); Anion Gap 14 (12-20); Aspartate Amino Transferase 18 U/L (5-37); Bilirubin Total 0.2 mg/dL (0.0-1.0); Blood Urea Nitrogen 33 mg/dL (9-16); Calcium 9.7 mg/dL (8.4-10.2); Carbon Dioxide 29 mmol/L (22-29); Chloride 100 mmol/L (96-108); Creatinine Clr Calc Pharmacy 51.1; Estimated Glomerular Filt Rate 43; Glucose Random 172 mg/dL (60-115); Magnesium 2.1 mg/dL (1.6-2.6); Potassium 4.9 mmol/L (3.3-5.1); Sodium 138 mmol/L (135-145); Total Protein 7.3 g/dL (6.5-8.0)
[2024-02-02 01:37] LABS: Troponin-I High Sensitivity < 2.7 ng/L (<3.5-35.0)
[2024-02-02] MEDS: 0.9 % Sodium Chloride 1,000 ML 125 ML IVCONT (07:29)
--- NOTE | 2024-02-02 07:33 | PC.NURSE ---
this RN resumed care of pt at this time. a&ox4. vss and up to date. nsr on the cardiac cath tech. pt speaking to this flex o writer operator w/ eyes closed. when asked if he still feel dizzy/lightheaded - pt states sx occur when he stands up. no sx noted at rest. pt denies pain at this time. no sob/wob noted. respirations even and unlabored. 1:1 sitter bedside d/t section 21. pt currently pending admission. pt requesting food - diet order placed/cafeteria called. plan of care ongoing. call pascual placed within reach.
--- NOTE | 2024-02-02 08:19 | P.HPHOSP_ITS ---
History of Present Illness Date of Service: 02/02/24 Chief Complaint: Fall, dizziness The patient is a 48 year old male with a PMH mood disorder, HFpEF, DM, HLD who is a resident at [facility] and presents to the ED after a fall/near syncope. Reportedly the patient was getting up (presumably supine/sitting) to get some juice when he felt lightheaded and slumped down. Per patient and the ED notes, there was no significant injury to the head. The patient himself reports feeling fine until the event. Upon further questioning he agrees that he may have been consuming less liquids over the preceding days. Denies any chest pain / sob. No urinary or GI symptoms. Denies dizziness. Denies pain currently. Patients initial work up showing CIARRA with SCr around 1.7. +orthostatic vitals with SBP dropping from 110s supine to 80s standing with symptoms. Despite 2L IVF, orthostatic vitals remain positive. Hence, will admit for further mgmt. Review of Systems 2 Review of Systems: Negative except HPI/interval history. [facility] Medical History Severe major depression with psychotic features H/O insulin dependent diabetes mellitus Social History Household Members: Friend(s) Housing: Apartment Do you presently have visiting nurse or other home services: No Alcohol intake: current Alcohol intake frequency: holidays/special occasions only Comment: 1:1 Sitter Patient Tobacco Use Status: Current everyday Tobacco user Tobacco use type: Cigarette Cigarette Packs Per Day: 1.5 Cigarettes Per Day: 30.0 Years Smoked: more than 10 Smoked in Last 30 Days: Yes e-Cigarette/Vaping Use: Never Used Second Hand Smoke Exposure: Yes Use of substances other than those prescribed or required for medical reasons: Yes Substance Use Type: Crack/Cocaine Advance Directives: No Advance Directives Information Provided: No Nutrition Risks: No Nutritional Risk service: No Sexual orientation: Straight/Heterosexual Meds Allergies Allergy/AdvReac Type Severity Reaction Status Date / Time No Known Allergies Allergy Verified 02/02/24 00:42 Active Medications: Current Medications Sodium Chloride (Ns) 1,000 mls @ 125 mls/hr IVCONT .Q8H [facility] Last Admin: 02/02/24 07:29 Dose: 125 mls/hr Home Medications Medication Instructions Recorded Confirmed Last Taken Type docusate sodium 100 mg capsule 100 mg PO BID PRN Constipation ##0 12/26/23 02/02/24 Unknown History insulin lispro 100 unit/mL See Protocol subcut TIDAC ##0 12/26/23 02/02/24 Unknown History subcutaneous solution nicotine (polacrilex) 2 mg gum 2 mg buccal Q2H PRN Smoking 12/26/23 02/02/24 Unknown History Cessation ##0 bupropion HCl 150 mg 24 hr tablet, 150 mg PO BID 02/02/24 02/02/24 02/01/24 History extended release diphenhydramine HCl 50 mg capsule 50 mg PO BEDTIME 02/02/24 02/02/24 Unknown History haloperidol 10 mg tablet 10 mg PO BID 02/02/24 02/02/24 02/01/24 History hydroxyzine HCl 50 mg tablet 50 mg PO TID PRN Anxiety 02/02/24 02/02/24 Unknown History insulin glargine 100 unit/mL 37 unit subcut BEDTIME 02/02/24 02/02/24 Unknown History subcutaneous solution (Lantus U-100 Insulin) Physical Exam 2 Vital Signs and Narrative: Vital Signs: Last Vital Signs Temp 98.3 F 02/02/24 07:26 Pulse 100 02/02/24 07:26 Resp 12 02/02/24 07:26 BP 144/82 H 02/02/24 07:26 Pulse Ox 98 02/02/24 07:26 O2 Del Method Room Air 02/02/24 07:26 BMI result Body Mass Index 25.2 Const: Other: Constitutional - Awake and Alert, No apparent distress Eyes - PERRLA, EOMI Cardiovascular - S1S2, RRR, No edema Respiratory - Normal lung expansion, Normal respiratory effort, No respiratory distress, CTA bilaterally Gastrointestinal - NT / ND; +BS; No rebound or guarding - No CVA tenderness Extremities - no calf tenderness bilaterally, no swelling Musculoskeletal - Normal inspection, normal ROM Skin - Warm/Dry Neurological - Alert & oriented x3 Psychological - Appropriate affect Results Labs 02/02/24 01:09 02/02/24 01:09 Labs: Laboratory Results - last 24 hr 02/02/24 01:09 MCV 89.1 MCH 29.1 MCHC 32.6 RDW 14.1 Plt Count 339 D MPV 8.4 L Immature Gran % (Auto) 0.3 Neut % (Auto) 47.7 Lymph % (Auto) 36.7 [place] % (Auto) 9.5 Eos % (Auto) 5.4 H Baso % (Auto) 0.4 Lymph # (Auto) 2.7 [place] # (Auto) 0.7 Eos # (Auto) 0.4 Baso # (Auto) 0.0 Abs Immat Gran (auto) 0.02 Absolute Neuts (auto) 3.5 Absolute Nucleated RBC 0.000 Nucleated RBC % (auto) 0.0 Anion Gap 14 Estim Creat Clear Calc 51.1 Estimated GFR 43 Random Glucose 172 H Calcium 9.7 Magnesium 2.1 Total Bilirubin 0.2 AST 18 ALT 15 Alkaline Phosphatase 131 H Troponin I High Sens < 2.7 Total Protein 7.3 Albumin 3.7 Imaging Radiologist's Impressions: Impressions Head CT 02/02/24 01:45 IMPRESSION: Limited evaluation towards the skull base due to motion artifact. No acute intracranial pathology identified. Assessment and Plan (1) Acute kidney failure: Status: Acute (2) Orthostatic hypotension: Status: Acute Plan 48 yo M with CHF, DM, Mood d/o, HLD who presents after fall/near syncope likely related to orthostasis. Despite 2L IVF, he has not improved and hence will be admitted for further mgmt. 1. Orthostatic syncope persists despite 2L IVF will give judicious IVF x 24 hours and re-eval monitor on tele pt previously on 20mg lasix, which was increased last admission to 40mg -- may need to re-eval diuretic dosing 2. CIARRA likely pre-renal IVF as above 3. DM sliding scale + long acting 4. Mood continue baseline meds 5. HFpEF hold diuretics Full Code DVT pptx, Lovenox Med rec pending, will continue baseline meds as appropriate. Pt with CIARRA and symptomatic orthostatic hypotension requiring judicious IVF and close monitoring due to underlyhing history of CHF. Anticipate his hospitalization to span 48-72 hours, therefore, will be admitted as inpatient. Quality Stroke Does the patient have a stroke diagnosis?: No VTE Prior VTE?: No VTE Risk Level:: Medical - moderate - high VTE Device Contraindication: Treatment Not Indicated VTE Drug Contraindication: N/A - Med Ordered
[2024-02-02] MEDS: Enoxaparin Sodium 40 MG/0.4 ML SYRINGE SUBCUT (09:15)
--- NOTE | 2024-02-02 11:47 | PHA.MEDREC ---
Pharmacy Consult ? Medication Reconciliation Pharmacy has completed the medication reconciliation. Spoke to Daniel via phone at [facility] and confirmed patient's medication list. Patient takes 37 units of lantus at bedtime, insulin lispro tidac per sliding scale, bupropion XL 150 mg bid, haloperidol 10 mg bid and diphenhydramine 50 mg at bedtime.
[2024-02-02 11:57] LABS: Glucose, Whole Blood 273 mg/dL (60-115)
[2024-02-02] MEDS: Insulin Lispro 100 UNIT/ML 3 ML VIAL SUBCUT ×3 (13:11→21:58)
--- NOTE | 2024-02-02 14:38 | PC.NURSE ---
vss and up to date. nsr on the monitor and storage bin tender. pt continues to rest in no apparent distress. respirations remain even and unlabored. pt continues to wait for bed assignment at this time. 1:1 sitter present. call pascual placed within reach.
[2024-02-02] MEDS: Gabapentin 400 MG CAPSULE 800 MG PO ×2 (15:10→21:57)
[2024-02-02] MEDS: 0.9 % Sodium Chloride Flush 3 ML SYRINGE IVFLUSH (15:11)
[2024-02-02 16:13] LABS: Glucose, Whole Blood 165 mg/dL (60-115)
[2024-02-02 18:19] LABS: Glucose, Whole Blood 194 mg/dL (60-115)
--- NOTE | 2024-02-02 18:28 | MHC.CM.ED ---
CM met with admitted patient with bed assignment pending. Pt has sitter . Pt was admitted to [facility] on 01/25 for MDD, auditory hallucinations and SI. Pt is Alert and orientated x4. Soft spoken and cooperative. Pt had a fall at [facility] with hypotension. According to medical record provided bu [facility], patient is homeless. Pt tells CM he lives with his daughter in [place]. Pt denies DME/services. PCP is Jocelyn Huerta in [place] ([phone]). No HCP on record. D/C plan: Return to [facility] when medically cleared. Pt will need BLS transport to facility. CM will follow for discharge planning.
[2024-02-02 21:27] LABS: Glucose, Whole Blood 189 mg/dL (60-115)
[2024-02-02] MEDS: buPROPion HCl XL 150 MG TAB.ER.24H PO (21:57)
[2024-02-02] MEDS: Atorvastatin Calcium 20 MG TABLET PO (21:57)
[2024-02-02] MEDS: HaloperidoL 5 MG TABLET 10 MG PO (21:57)
[2024-02-02] MEDS: traZODone HCL 100 MG TABLET 200 MG PO (21:57)
[2024-02-02] MEDS: Insulin Glargine,Hum.rec.anlog 100 UNIT/ML 10 ML VIAL 37 UNIT SUBCUT (21:58)
[2024-02-03] VITALS (8 sets, daily range): BP systolic 103–135; BP diastolic 64–82; PULSE 90–98; RESP 15–18; TEMP 36.5–37; O2SAT 95–99
--- NOTE | 2024-02-03 00:17 | MHC.EDTECH ---
This tech took over care of patient at 2300,hourly rounds and vitals completed,patient is resting at this time,1-1 sitter at bedside for safety.
[2024-02-03 07:14] LABS: Anion Gap 11 (12-20); Blood Urea Nitrogen 20 mg/dL (9-16); Calcium 9.4 mg/dL (8.4-10.2); Carbon Dioxide 28 mmol/L (22-29); Chloride 103 mmol/L (96-108); Creatinine Clr Calc Pharmacy 98.2; Estimated Glomerular Filt Rate > 60; Glucose Random 210 mg/dL (60-115); Potassium 4.3 mmol/L (3.3-5.1); Sodium 138 mmol/L (135-145)
[2024-02-03 08:21] LABS: Glucose, Whole Blood 157 mg/dL (60-115)
[2024-02-03] MEDS: Insulin Lispro 100 UNIT/ML 3 ML VIAL SUBCUT ×4 (08:22→21:14)
--- NOTE | 2024-02-03 09:35 | PC.NURSE ---
texted group anuel thread again as awaiting transport still. originally texted anuel report at [phone]. pt ate breakfast. in new gown and pants.
[2024-02-03] MEDS: Gabapentin 400 MG CAPSULE 800 MG PO ×3 (09:43→21:14)
[2024-02-03] MEDS: Enoxaparin Sodium 40 MG/0.4 ML SYRINGE SUBCUT (09:43)
[2024-02-03] MEDS: Sertraline HCL 50 MG TABLET PO (09:43)
[2024-02-03] MEDS: buPROPion HCl XL 150 MG TAB.ER.24H PO ×2 (09:43→21:14)
[2024-02-03] MEDS: HaloperidoL 5 MG TABLET 10 MG PO ×2 (09:44→21:14)
[2024-02-03 11:27] LABS: Glucose, Whole Blood 183 mg/dL (60-115)
--- NOTE | 2024-02-03 11:46 | MHC.CM.PN ---
CM contacted [facility] to inquire on process for pt. to return there when medically stable. [facility] was informed that pt. was DC from there and they have no beds now. They said we can re refer him by sending clinical and referral to them via fax at [phone].
--- NOTE | 2024-02-03 13:07 | HO.PM.IMPN ---
Subjective Subjective Date of Service: 02/03/24 Interval History: no complaints Physical Exam Vital Signs: Vital Signs: Last Vital Signs Temp 98.2 F 02/03/24 11:20 Pulse 98 02/03/24 11:20 Resp 18 02/03/24 11:20 BP 135/73 02/03/24 11:20 Pulse Ox 98 02/03/24 11:20 O2 Del Method Room Air 02/03/24 11:20 BMI result Body Mass Index 25.2 Appearance: Alert. Oriented X3. No acute distress. Slow to speak orthostatic hypotension+ Eyes: PERRLA, No Nystagmus ENT: Pharynx normal. Oral Mucosa moist AT NC Neck: Normal inspection. Neck supple. CVS: Normal heart rate and rhythm. Pulses normal. Respiratory: No respiratory distress. Equal air entry bilateral, no wheezing/rales/rhonchi Abdomen: Soft and nontender. Bowel sounds are present, no mass palpable, no CVA tenderness Skin: Skin warm and dry. Normal skin color. Normal skin turgor. Extremities: No lower extremity edema. No calf tenderness Neuro: Oriented X 3. No motor deficit. No sensory deficit.No cerebellar signs , cranial nerves II-XII intact Objective Data Active Medications Acetaminophen (Acetaminophen 325 Mg Tablet) 650 mg PO Q6H PRN PRN Reason: Pain, Mild (Pain Scale 1-3) Atorvastatin Calcium (Atorvastatin Calcium 20 Mg Tablet) 20 mg PO BEDTIME [facility] Last Admin: 02/02/24 21:57 Dose: 20 mg Documented By: EDU Bupropion HCl (Bupropion Hcl Xl 150 Mg Tab.Er.24h) 150 mg PO BID [facility] Last Admin: 02/03/24 09:43 Dose: 150 mg Documented By: EVERETT Docusate Sodium (Docusate Sodium 100 Mg Capsule) 100 mg PO BID PRN PRN Reason: Constipation Enoxaparin Sodium (Enoxaparin Sodium 40 Mg/0.4 Ml Syringe) 40 mg SUBCUT Q24H [facility] Last Admin: 02/03/24 09:43 Dose: 40 mg Documented By: EVERETT Famotidine (Famotidine 20 Mg Tablet) 20 mg PO DAILY [facility] Last Admin: 02/03/24 09:44 Dose: Not Given Documented By: EVERETT Non-Admin Reason: declined Gabapentin (Gabapentin 400 Mg Capsule) 800 mg PO TID [facility] Last Admin: 02/03/24 09:43 Dose: 800 mg Documented By: EVERETT Haloperidol (Haloperidol 5 Mg Tablet) 10 mg PO BID [facility] Last Admin: 02/03/24 09:44 Dose: 10 mg Documented By: EVERETT Hydroxyzine HCl (Hydroxyzine Hcl 50 Mg Tablet) 50 mg PO TID PRN PRN Reason: Anxiety Insulin Glargine (Insulin Glargine,Hum.Rec.Anlog 100 Unit/Ml 10 Ml Vial) 37 unit SUBCUT BEDTIME [facility] Last Admin: 02/02/24 21:58 Dose: 37 unit Documented By: EDU Insulin Human Lispro (Insulin Lispro 100 Unit/Ml 3 Ml Vial) 0 unit SUBCUT QIDACHS [facility]; Protocol Last Admin: 02/03/24 11:44 Dose: 2 unit Documented By: MEREDITH Nicotine Polacrilex (Nicotine Polacrilex 2 Mg Gum) 2 mg BUCCAL Q2H PRN PRN Reason: Smoking Cessation Sertraline HCl (Sertraline Hcl 50 Mg Tablet) 50 mg PO DAILY [facility] Last Admin: 02/03/24 09:43 Dose: 50 mg Documented By: EVERETT Sodium Chloride (0.9 % Sodium Chloride Flush 3 Ml Syringe) 3 ml IVFLUSH QSHIFT [facility] Last Admin: 02/03/24 08:18 Dose: Not Given Documented By: EVERETT Non-Admin Reason: not need Trazodone HCl (Trazodone Hcl 100 Mg Tablet) 200 mg PO BEDTIME [facility] Last Admin: 02/02/24 21:57 Dose: 200 mg Documented By: EDU Labs 02/02/24 01:09 02/03/24 06:31 Labs: Laboratory Results - last 24 hr 02/02/24 02/02/24 02/02/24 16:08 18:14 21:20 Anion Gap Estim Creat Clear Calc Estimated GFR POC Glucose 165 H 194 H 189 H Random Glucose Calcium 02/03/24 02/03/24 02/03/24 06:31 08:15 11:22 Anion Gap 11 L Estim Creat Clear Calc 98.2 Estimated GFR > 60 POC Glucose 157 H 183 H Random Glucose 210 H Calcium 9.4 Assessment and Plan (1) Acute kidney failure: Status: Acute Plan 48M with hfpeF, DM, Mood d/o, HLD who presented after fall/near syncope likely related to orthostasis Orthostatic syncope improved with hydration CIARRA resolved DM sliding scale + long acting Mood haldol, buproprion, zoloft, trazodone HFpEF holding diuretics Full Code DVT pptx, Lovenox reason for continued hospitalization:medically cleared, care team eval Quality Stroke Does the patient have a stroke diagnosis?: No VTE Prior VTE?: No VTE Risk Level:: Medical - moderate - high VTE Device Contraindication: Treatment Not Indicated VTE Drug Contraindication: N/A - Med Ordered
--- NOTE | 2024-02-03 13:58 | MHC.CARE ---
Clinician attempted to see pt, he was sleeping and did wake up to go to bathroom, however appeared very somnolent. Pt was sleepy and required assistance to bathroom as he is a fall risk, according to 1:1 staff patient was moved from ED to medical floor at 10 AM today, however provider reported patient was medically cleared currently. There was construction work being done on patients window in his room and pt was somnolent, pt was informed clinician would come back when he was more alert and able to engage in assessment with privacy.
[2024-02-03] MEDS: 0.9 % Sodium Chloride Flush 3 ML SYRINGE IVFLUSH (15:30)
[2024-02-03 15:32] LABS: Glucose, Whole Blood 205 mg/dL (60-115)
[2024-02-03 19:50] LABS: Glucose, Whole Blood 168 mg/dL (60-115)
[2024-02-03] MEDS: Atorvastatin Calcium 20 MG TABLET PO (21:14)
[2024-02-03] MEDS: traZODone HCL 100 MG TABLET 200 MG PO (21:14)
[2024-02-03] MEDS: Insulin Glargine,Hum.rec.anlog 100 UNIT/ML 10 ML VIAL 37 UNIT SUBCUT (21:15)
[2024-02-04] VITALS (11 sets, daily range): BP systolic 93–123; BP diastolic 52–68; PULSE 65–101; RESP 18–20; TEMP 36.4–37.1; O2SAT 96–100
[2024-02-04] MEDS: 0.9 % Sodium Chloride Flush 3 ML SYRINGE IVFLUSH ×4 (00:30→23:33)
[2024-02-04 07:45] LABS: Glucose, Whole Blood 180 mg/dL (60-115)
--- NOTE | 2024-02-04 08:21 | MHC.CARE ---
Pt was seen by CARE team, pt does not meet inpatient level of care currently and provider was notified. See crisis assessment [facility].
[2024-02-04] MEDS: 0.9 % Sodium Chloride 1,000 ML 999 ML IV (09:06)
[2024-02-04] MEDS: Insulin Lispro 100 UNIT/ML 3 ML VIAL SUBCUT ×3 (09:08→20:20)
[2024-02-04] MEDS: buPROPion HCl XL 150 MG TAB.ER.24H PO ×2 (09:08→20:19)
[2024-02-04] MEDS: Enoxaparin Sodium 40 MG/0.4 ML SYRINGE SUBCUT (09:08)
[2024-02-04] MEDS: Sertraline HCL 50 MG TABLET PO (09:09)
[2024-02-04] MEDS: Gabapentin 400 MG CAPSULE 800 MG PO ×3 (09:09→20:18)
[2024-02-04] MEDS: HaloperidoL 5 MG TABLET 10 MG PO ×2 (09:09→20:18)
--- NOTE | 2024-02-04 09:12 | MHC.CM.PN ---
CM met with pt to discuss DC plan. He was very sleepy, he said the doctor said that he will have PT come see him. CM asked him where his understanding of his DC plan is, he said he lives in [place], and sometimes stays with his daughter. I asked his permission to call his daughter and he agreed, Left message for her. CM contacted [facility] medical respite program, was told that criteria is that pt will have to walk 350 ft without assistance and without an assistive device, and be able to get into a top bunk bed, or assemble and disassemble a cot daily. CM will see PT eval to see if pt. meets this criteria, and follow up with [facility] [facility] accordingly.
--- NOTE | 2024-02-04 09:39 | HO.PM.IMPN ---
Subjective Subjective Date of Service: 02/04/24 Interval History: reports dizziness on ambulation Physical Exam Vital Signs: Vital Signs: Last Vital Signs Temp 97.8 F 02/04/24 04:00 Pulse 65 02/04/24 04:00 Resp 18 02/04/24 04:00 BP 120/62 02/04/24 04:00 Pulse Ox 100 02/04/24 04:00 O2 Del Method Room Air 02/04/24 04:00 BMI result Body Mass Index 25.2 General: AO X 3, no acute distress Resp: CTA bilateral, no accessory muscles used CVS: S1,S2,RRR GI: soft, non tender, non distended Neuro: motor grossly intact, alert Psych: appropriate affect, appropriate insight Objective Data Active Medications Acetaminophen (Acetaminophen 325 Mg Tablet) 650 mg PO Q6H PRN PRN Reason: Pain, Mild (Pain Scale 1-3) Atorvastatin Calcium (Atorvastatin Calcium 20 Mg Tablet) 20 mg PO BEDTIME [facility] Last Admin: 02/03/24 21:14 Dose: 20 mg Documented By: ZHANG Bupropion HCl (Bupropion Hcl Xl 150 Mg Tab.Er.24h) 150 mg PO BID [facility] Last Admin: 02/04/24 09:08 Dose: 150 mg Documented By: MEREDITH Docusate Sodium (Docusate Sodium 100 Mg Capsule) 100 mg PO BID PRN PRN Reason: Constipation Enoxaparin Sodium (Enoxaparin Sodium 40 Mg/0.4 Ml Syringe) 40 mg SUBCUT Q24H [facility] Last Admin: 02/04/24 09:08 Dose: 40 mg Documented By: MEREDITH Famotidine (Famotidine 20 Mg Tablet) 20 mg PO DAILY [facility] Last Admin: 02/04/24 09:13 Dose: Not Given Documented By: MEREDITH Non-Admin Reason: Patient Refused Gabapentin (Gabapentin 400 Mg Capsule) 800 mg PO TID [facility] Last Admin: 02/04/24 09:09 Dose: 800 mg Documented By: MEREDITH Haloperidol (Haloperidol 5 Mg Tablet) 10 mg PO BID [facility] Last Admin: 02/04/24 09:09 Dose: 10 mg Documented By: MEREDITH Hydroxyzine HCl (Hydroxyzine Hcl 50 Mg Tablet) 50 mg PO TID PRN PRN Reason: Anxiety Sodium Chloride (Ns) 1,000 mls @ 999 mls/hr IV .Q1H1M [facility] Stop: 02/04/24 09:45 Last Admin: 02/04/24 09:06 Dose: 999 mls/hr Documented By: MEREDITH Insulin Glargine (Insulin Glargine,Hum.Rec.Anlog 100 Unit/Ml 10 Ml Vial) 37 unit SUBCUT BEDTIME [facility] Last Admin: 02/03/24 21:15 Dose: 37 unit Documented By: ZHANG Insulin Human Lispro (Insulin Lispro 100 Unit/Ml 3 Ml Vial) 0 unit SUBCUT QIDACHS [facility]; Protocol Last Admin: 02/04/24 09:08 Dose: 2 unit Documented By: MEREDITH Nicotine Polacrilex (Nicotine Polacrilex 2 Mg Gum) 2 mg BUCCAL Q2H PRN PRN Reason: Smoking Cessation Sertraline HCl (Sertraline Hcl 50 Mg Tablet) 50 mg PO DAILY [facility] Last Admin: 02/04/24 09:09 Dose: 50 mg Documented By: MEREDITH Sodium Chloride (0.9 % Sodium Chloride Flush 3 Ml Syringe) 3 ml IVFLUSH QSHIFT [facility] Last Admin: 02/04/24 09:06 Dose: 3 ml Documented By: MEREDITH Trazodone HCl (Trazodone Hcl 100 Mg Tablet) 200 mg PO BEDTIME [facility] Last Admin: 02/03/24 21:14 Dose: 200 mg Documented By: ZHANG Labs 02/02/24 01:09 02/03/24 06:31 Labs: Laboratory Results - last 24 hr 02/03/24 02/03/24 02/03/24 11:22 15:23 19:47 POC Glucose 183 H 205 H 168 H 02/04/24 07:36 POC Glucose 180 H Assessment and Plan (1) Acute kidney failure: Status: Acute Plan 48M with hfpeF, DM, Mood d/o, HLD who presented after fall/near syncope likely related to orthostasis Orthostatic syncope improved with hydration CIARRA resolved DM sliding scale + long acting Mood haldol, buproprion, zoloft, trazodone seen by care team - no need for inpatient at this time HFpEF holding diuretics Full Code DVT pptx, Lovenox reason for continued hospitalization:safe dispo Quality Stroke Does the patient have a stroke diagnosis?: No VTE Prior VTE?: No VTE Risk Level:: Medical - moderate - high VTE Device Contraindication: Treatment Not Indicated VTE Drug Contraindication: N/A - Med Ordered
[2024-02-04 11:25] LABS: Glucose, Whole Blood 233 mg/dL (60-115)
--- NOTE | 2024-02-04 14:00 | PC.NURSE ---
1to 1 sitter D/C per MD at 1350
[2024-02-04 16:17] LABS: Glucose, Whole Blood 143 mg/dL (60-115)
[2024-02-04 19:47] LABS: Glucose, Whole Blood 198 mg/dL (60-115)
[2024-02-04] MEDS: Atorvastatin Calcium 20 MG TABLET PO (20:18)
[2024-02-04] MEDS: traZODone HCL 100 MG TABLET 200 MG PO (20:18)
[2024-02-04] MEDS: Insulin Glargine,Hum.rec.anlog 100 UNIT/ML 10 ML VIAL 37 UNIT SUBCUT (20:21)
[2024-02-05] VITALS (13 sets, daily range): BP systolic 76–138; BP diastolic 51–73; PULSE 85–98; RESP 20; TEMP 36.2–37.7; O2SAT 96–98
[2024-02-05 07:38] LABS: Glucose, Whole Blood 124 mg/dL (60-115)
[2024-02-05] MEDS: Enoxaparin Sodium 40 MG/0.4 ML SYRINGE SUBCUT (07:51)
[2024-02-05] MEDS: Gabapentin 400 MG CAPSULE 800 MG PO ×3 (07:52→20:32)
[2024-02-05] MEDS: Sertraline HCL 50 MG TABLET PO (07:52)
[2024-02-05] MEDS: 0.9 % Sodium Chloride Flush 3 ML SYRINGE IVFLUSH ×3 (07:53→20:32)
[2024-02-05] MEDS: buPROPion HCl XL 150 MG TAB.ER.24H PO ×2 (07:53→20:31)
[2024-02-05] MEDS: Midodrine HCl 2.5 MG TABLET PO ×3 (07:53→20:31)
[2024-02-05] MEDS: HaloperidoL 5 MG TABLET 10 MG PO ×2 (07:53→20:32)
[2024-02-05] MEDS: 0.9 % Sodium Chloride 1,000 ML 999 ML IV (10:26)
--- NOTE | 2024-02-05 10:28 | P.PNIM_ITS ---
Subjective Subjective Date of Service: 02/05/24 Interval History: dizzy when ambulating Physical Exam 2 Vital Signs: Vital Signs: Last Vital Signs Temp 98.8 F 02/05/24 07:49 Pulse 91 02/05/24 07:49 Resp 20 02/05/24 07:49 BP 109/57 L 02/05/24 07:49 Pulse Ox 96 02/05/24 07:49 O2 Del Method Room Air 02/05/24 07:49 BMI result Body Mass Index 25.2 General: AO X 3, no acute distress Resp: CTA bilateral, no accessory muscles used CVS: S1,S2,RRR GI: soft, non tender, non distended Neuro: motor grossly intact, alert Psych: appropriate affect, appropriate insight Objective Data Active Medications Acetaminophen (Acetaminophen 325 Mg Tablet) 650 mg PO Q6H PRN PRN Reason: Pain, Mild (Pain Scale 1-3) Atorvastatin Calcium (Atorvastatin Calcium 20 Mg Tablet) 20 mg PO BEDTIME [facility] Last Admin: 02/04/24 20:18 Dose: 20 mg Documented By: ZHANG Bupropion HCl (Bupropion Hcl Xl 150 Mg Tab.Er.24h) 150 mg PO BID [facility] Last Admin: 02/05/24 07:53 Dose: 150 mg Documented By: JULIANNE Docusate Sodium (Docusate Sodium 100 Mg Capsule) 100 mg PO BID PRN PRN Reason: Constipation Enoxaparin Sodium (Enoxaparin Sodium 40 Mg/0.4 Ml Syringe) 40 mg SUBCUT Q24H [facility] Last Admin: 02/05/24 07:51 Dose: 40 mg Documented By: JULIANNE Famotidine (Famotidine 20 Mg Tablet) 20 mg PO DAILY [facility] Last Admin: 02/05/24 07:52 Dose: Not Given Documented By: JULIANNE Non-Admin Reason: Patient Refused Gabapentin (Gabapentin 400 Mg Capsule) 800 mg PO TID [facility] Last Admin: 02/05/24 07:52 Dose: 800 mg Documented By: JULIANNE Haloperidol (Haloperidol 5 Mg Tablet) 10 mg PO BID [facility] Last Admin: 02/05/24 07:53 Dose: 10 mg Documented By: JULIANNE Hydroxyzine HCl (Hydroxyzine Hcl 50 Mg Tablet) 50 mg PO TID PRN PRN Reason: Anxiety Insulin Glargine (Insulin Glargine,Hum.Rec.Anlog 100 Unit/Ml 10 Ml Vial) 37 unit SUBCUT BEDTIME [facility] Last Admin: 02/04/24 20:21 Dose: 37 unit Documented By: ZHANG Insulin Human Lispro (Insulin Lispro 100 Unit/Ml 3 Ml Vial) 0 unit SUBCUT QIDACHS [facility]; Protocol Last Admin: 02/05/24 07:41 Dose: Not Given Documented By: JULIANNE Non-Admin Reason: No Insulin Coverage Midodrine (Midodrine Hcl 2.5 Mg Tablet) 2.5 mg PO TID [facility] Last Admin: 02/05/24 07:53 Dose: 2.5 mg Documented By: JULIANNE Nicotine Polacrilex (Nicotine Polacrilex 2 Mg Gum) 2 mg BUCCAL Q2H PRN PRN Reason: Smoking Cessation Sertraline HCl (Sertraline Hcl 50 Mg Tablet) 50 mg PO DAILY [facility] Last Admin: 02/05/24 07:52 Dose: 50 mg Documented By: JULIANNE Sodium Chloride (0.9 % Sodium Chloride Flush 3 Ml Syringe) 3 ml IVFLUSH QSHIFT [facility] Last Admin: 02/05/24 07:53 Dose: 3 ml Documented By: JULIANNE Trazodone HCl (Trazodone Hcl 100 Mg Tablet) 200 mg PO BEDTIME [facility] Last Admin: 02/04/24 20:18 Dose: 200 mg Documented By: ZHANG Labs 02/02/24 01:09 02/03/24 06:31 Labs: Laboratory Results - last 24 hr 02/04/24 02/04/24 02/04/24 11:13 16:11 19:41 POC Glucose 233 H 143 H 198 H 02/05/24 07:31 POC Glucose 124 H Assessment and Plan (1) Acute kidney failure: Status: Acute Plan 48M with hfpeF, DM, Mood d/o, HLD who presented after fall/near syncope likely related to orthostasis Orthostatic syncope worse today (not due to sepsis) will give another liter of ns start midodrine check am cortisol CIARRA resolved DM sliding scale + long acting Mood haldol, buproprion, zoloft, trazodone seen by care team - no need for inpatient at this time, low risk for self harm HFpEF holding diuretics Full Code DVT pptx, Lovenox reason for continued hospitalization: significnat orthostatic hypotension Quality Stroke Does the patient have a stroke diagnosis?: No VTE Prior VTE?: No VTE Risk Level:: Medical - moderate - high VTE Device Contraindication: Treatment Not Indicated VTE Drug Contraindication: N/A - Med Ordered
[2024-02-05 11:48] LABS: Glucose, Whole Blood 166 mg/dL (60-115)
[2024-02-05] MEDS: Insulin Lispro 100 UNIT/ML 3 ML VIAL SUBCUT ×2 (12:03→16:32)
--- NOTE | 2024-02-05 12:39 | MHC.CM.PN ---
Pt was accepted pending PASRR screening at [facility] in [place]. Today his BP is low, provider has not yet DC pt. CM in contact with [facility], completed PASRR form online, anticipate DC to there on 02/06/24.
[2024-02-05 16:16] LABS: Glucose, Whole Blood 163 mg/dL (60-115)
[2024-02-05] MEDS: traZODone HCL 100 MG TABLET 200 MG PO (20:31)
[2024-02-05] MEDS: Atorvastatin Calcium 20 MG TABLET PO (20:31)
[2024-02-05] MEDS: Insulin Glargine,Hum.rec.anlog 100 UNIT/ML 10 ML VIAL 37 UNIT SUBCUT (20:32)
[2024-02-05 21:28] LABS: Glucose, Whole Blood 141 mg/dL (60-115)
[2024-02-06] VITALS (9 sets, daily range): BP systolic 92–140; BP diastolic 47–79; PULSE 86–100; RESP 18–20; TEMP 36.5–37.4; O2SAT 95–99
[2024-02-06 07:24] LABS: Cortisol Random 3.9 ug/dL
[2024-02-06 08:08] LABS: Glucose, Whole Blood 106 mg/dL (60-115)
--- NOTE | 2024-02-06 09:24 | P.DS_ITS ---
DS: Providers Provider Date of Service: 02/09/24 Date of admission: 02/02/24 08:17 Primary care physician: Unknown Physician Consults: 02/03/24 13:06 Consult to Care Team Routine Comment: Reason for consultation: medically cleared, came from [facility] DS: Diagnosis Discharge Diagnosis (1) Acute kidney failure: Status: Acute DS: Summary Hospital Course Hospital Course: from initial hpi: 48 year old male with a PMH mood disorder, HFpEF, DM, HLD who is a resident at [facility] and presents to the ED after a fall/near syncope. Reportedly the patient was getting up (presumably supine/sitting) to get some juice when he felt lightheaded and slumped down. Per patient and the ED notes, there was no significant injury to the head. The patient himself reports feeling fine until the event. Upon further questioning he agrees that he may have been consuming less liquids over the preceding days. Denies any chest pain / sob. No urinary or GI symptoms. Denies dizziness. Denies pain currently. Patients initial work up showing CIARRA with SCr around 1.7. +orthostatic vitals with SBP dropping from 110s supine to 80s standing with symptoms. Despite 2L IVF, orthostatic vitals remain positive. Hence, will admit for further mgmt. hospital course: Patient was admitted for syncope due to orthostatic hypotension complicated by acute kidney injury. He was given IV fluids, CIARRA resolved. orthostasis was further worked up as still present despite hydration. am cortisol was significantly suppressed - 3.9. acth stimulation showed appropriate response, c/w central adrenal insuifficiency, ACTH was sent and pending, then started on hydrocortisone, some improvement in symptoms and numbers. these should be followed up outpatient with endocirne. trazadone which can cause orthostatic hyptotension is also being weaned off, currently down from 200mg to 50mg. should continue to wean. should also be cautious specifically in early AM as this is time patient is most symptomatic. He was evaluated by care team and deemed not to require inpatient psychiatric care at this time and low risk for self-harm. [facility]. expected to require less than 30 days. For diabetes was continue insulin. For hfpef his diuretics were held, maintenance can be restarted as outpatient. Time Attestation Discharge Coordination Time (in mins): 35 Quality: Safe Use of Opioids Does Pt have an Active Cancer Diagnosis on the Problem List?: No Quality: Stroke Does the patient have a stroke diagnosis?: No Physical Exam Vital Signs: Vital Signs: Last Vital Signs Temp 98.6 F 02/06/24 07:46 Pulse 98 02/06/24 08:10 Resp 18 02/06/24 07:46 BP 92/47 L 02/06/24 08:10 Pulse Ox 99 02/06/24 07:46 O2 Del Method Room Air 02/06/24 07:46 BMI result Body Mass Index 25.2 General: AO X 3, no acute distress Resp: CTA bilateral, no accessory muscles used CVS: S1,S2,RRR GI: soft, non tender, non distended Neuro: motor grossly intact, alert Psych: appropriate affect, appropriate insight DS: Data Data Completed and Pending Labs on day of discharge: Laboratory Results - last 24 hr 02/05/24 02/05/24 02/05/24 11:43 15:43 20:07 Hold Purple Top POC Glucose 166 H 163 H 141 H Random Cortisol 02/06/24 02/06/24 06:24 07:45 Hold Purple Top SEE NOTE POC Glucose 106 Random Cortisol 3.9 Discharge Plan Discharge Anticipated Discharge Date/Time: 02/06/24 09:20 Patient Disposition: Xfer SNF Discharge Diagnosis: orthostatic hypotension, ciarra Referrals: [facility] [Outside] - 1 Week Burt Larry MD [Physician] - 1 Week (?central adrenal insufficdiency) Physician,Tho Jordan [Primary Care Provider] - 1 Week Discharge Medications: New trazodone 50 mg Tablet 50 mg PO BEDTIME Qty: 0 0RF hydrocortisone [Cortef] 10 mg Tablet 10 mg PO TID Qty: 0 0RF Continued insulin lispro 100 unit/mL Solution See Protocol SUBCUT TIDAC Qty: 0 Protocol: Insulin Correction Scale Less than or equal to 110 ---- Give (units): 0 111 to 150 Give (units): 0 151 to 200 Give (units): 2 201 to 250 Give (units): 4 251 to 300 Give (units): 6 301 to 350 Give (units): 8 Greater than 350 Give (units): 10 Call MD if Blood Glucose > : 350 Rx Instructions: last dose not indicated on dc form nicotine (polacrilex) 2 mg Gum 2 mg BUCCAL Q2H PRN (Reason: Smoking Cessation) Qty: 0 Patient Comments: smokes daily docusate sodium 100 mg Capsule 100 mg PO BID PRN (Reason: Constipation) Qty: 0 gabapentin 400 mg Capsule 800 mg PO TID 30 Days Qty: 180 0RF atorvastatin 20 mg Tablet 20 mg PO BEDTIME 30 Days Qty: 30 0RF melatonin 3 mg Tablet 6 mg PO BEDTIME PRN (Reason: Sleep) 30 Days Qty: 60 0RF famotidine 20 mg Tablet 20 mg PO DAILY 30 Days Qty: 30 0RF sertraline 50 mg Tablet 50 mg PO DAILY 30 Days Qty: 30 0RF insulin glargine [Lantus U-100 Insulin] 100 unit/mL solution 37 unit subcut BEDTIME diphenhydramine HCl 50 mg Capsule 50 mg PO BEDTIME hydroxyzine HCl 50 mg Tablet 50 mg PO TID PRN (Reason: Anxiety) bupropion HCl 150 mg Tablet Extended Release 24 Hr 150 mg PO BID haloperidol 10 mg Tablet 10 mg PO BID Discontinued trazodone 100 mg Tablet 200 mg PO BEDTIME 30 Days Qty: 60 0RF Discharge Orders: Discharge Order (Routine); Ordered 02/06/24 Ordered By: Aleksey Barrera Diet: Advance to usual diet Activity on Discharge: As tolerated Stand Alone Forms: Patient Portal Discharge page Care Plan Goals: manage orthostatic hypotension Health Concerns: orthostatic hypotension, suspected central adrenal insufficiency wean off trazadone as can cause orthostatic hypotension started on hydrocortisone, follow up ACTH level sent prior to starting hydr ocortisone, follow up with endocrine patient still with some orthostasis with symptoms, mostly first thing in the morning, precautions should be taken to avoid falls/injury Plan of Treatment: see above Assessment: see above
[2024-02-06] MEDS: HaloperidoL 5 MG TABLET 10 MG PO ×2 (09:37→19:43)
[2024-02-06] MEDS: Midodrine HCl 2.5 MG TABLET PO ×2 (09:37→16:21)
[2024-02-06] MEDS: Enoxaparin Sodium 40 MG/0.4 ML SYRINGE SUBCUT (09:38)
[2024-02-06] MEDS: Gabapentin 400 MG CAPSULE 800 MG PO ×3 (09:38→19:43)
[2024-02-06] MEDS: Sertraline HCL 50 MG TABLET PO (09:38)
[2024-02-06] MEDS: 0.9 % Sodium Chloride Flush 3 ML SYRINGE IVFLUSH ×3 (09:38→19:44)
[2024-02-06] MEDS: buPROPion HCl XL 150 MG TAB.ER.24H PO ×2 (09:38→19:43)
--- NOTE | 2024-02-06 10:05 | HO.PM.IMPN ---
Subjective Subjective Date of Service: 02/06/24 Interval History: still mildly orthsostatic but feels much better, and no symptoms Physical Exam Vital Signs: Vital Signs: Last Vital Signs Temp 98.6 F 02/06/24 07:46 Pulse 98 02/06/24 08:10 Resp 18 02/06/24 07:46 BP 92/47 L 02/06/24 08:10 Pulse Ox 99 02/06/24 07:46 O2 Del Method Room Air 02/06/24 07:46 BMI result Body Mass Index 25.2 General: AO X 3, no acute distress Resp: CTA bilateral, no accessory muscles used CVS: S1,S2,RRR GI: soft, non tender, non distended Neuro: motor grossly intact, alert Psych: appropriate affect, appropriate insight Objective Data Active Medications Acetaminophen (Acetaminophen 325 Mg Tablet) 650 mg PO Q6H PRN PRN Reason: Pain, Mild (Pain Scale 1-3) Atorvastatin Calcium (Atorvastatin Calcium 20 Mg Tablet) 20 mg PO BEDTIME [facility] Last Admin: 02/05/24 20:31 Dose: 20 mg Documented By: ZENA Bupropion HCl (Bupropion Hcl Xl 150 Mg Tab.Er.24h) 150 mg PO BID [facility] Last Admin: 02/06/24 09:38 Dose: 150 mg Documented By: JULIANNE Docusate Sodium (Docusate Sodium 100 Mg Capsule) 100 mg PO BID PRN PRN Reason: Constipation Enoxaparin Sodium (Enoxaparin Sodium 40 Mg/0.4 Ml Syringe) 40 mg SUBCUT Q24H [facility] Last Admin: 02/06/24 09:38 Dose: 40 mg Documented By: JULIANNE Famotidine (Famotidine 20 Mg Tablet) 20 mg PO DAILY [facility] Last Admin: 02/06/24 09:38 Dose: Not Given Documented By: JULIANNE Non-Admin Reason: Patient Refused Gabapentin (Gabapentin 400 Mg Capsule) 800 mg PO TID [facility] Last Admin: 02/06/24 09:38 Dose: 800 mg Documented By: JULIANNE Haloperidol (Haloperidol 5 Mg Tablet) 10 mg PO BID [facility] Last Admin: 02/06/24 09:37 Dose: 10 mg Documented By: JULIANNE Hydroxyzine HCl (Hydroxyzine Hcl 50 Mg Tablet) 50 mg PO TID PRN PRN Reason: Anxiety Insulin Glargine (Insulin Glargine,Hum.Rec.Anlog 100 Unit/Ml 10 Ml Vial) 37 unit SUBCUT BEDTIME [facility] Last Admin: 02/05/24 20:32 Dose: 37 unit Documented By: ZENA Insulin Human Lispro (Insulin Lispro 100 Unit/Ml 3 Ml Vial) 0 unit SUBCUT QIDACHS [facility]; Protocol Last Admin: 02/06/24 08:22 Dose: Not Given Documented By: JULIANNE Non-Admin Reason: No Insulin Coverage Midodrine (Midodrine Hcl 2.5 Mg Tablet) 2.5 mg PO TID [facility] Last Admin: 02/06/24 09:37 Dose: 2.5 mg Documented By: JULIANNE Nicotine Polacrilex (Nicotine Polacrilex 2 Mg Gum) 2 mg BUCCAL Q2H PRN PRN Reason: Smoking Cessation Sertraline HCl (Sertraline Hcl 50 Mg Tablet) 50 mg PO DAILY [facility] Last Admin: 02/06/24 09:38 Dose: 50 mg Documented By: JULIANNE Sodium Chloride (0.9 % Sodium Chloride Flush 3 Ml Syringe) 3 ml IVFLUSH QSHIFT [facility] Last Admin: 02/06/24 09:38 Dose: 3 ml Documented By: JULIANNE Trazodone HCl (Trazodone Hcl 100 Mg Tablet) 200 mg PO BEDTIME [facility] Last Admin: 02/05/24 20:31 Dose: 200 mg Documented By: ZENA Labs 02/02/24 01:09 02/03/24 06:31 Labs: Laboratory Results - last 24 hr 02/05/24 02/05/24 02/05/24 11:43 15:43 20:07 Hold Purple Top POC Glucose 166 H 163 H 141 H Random Cortisol 02/06/24 02/06/24 06:24 07:45 Hold Purple Top SEE NOTE POC Glucose 106 Random Cortisol 3.9 Assessment and Plan (1) Acute kidney failure: Status: Acute Plan 48M with hfpeF, DM, Mood d/o, HLD who presented after fall/near syncope likely related to orthostasis Orthostatic syncope improved, asymptomatic today continue midodrine start midodrine possible adrenal insufficiency am cortisol - 3.9 will get acth stimulation test (can be inpatient or outpatient) CIARRA resolved DM sliding scale + long acting Mood haldol, buproprion, zoloft, trazodone seen by care team - no need for inpatient at this time, low risk for self harm HFpEF holding diuretics Full Code DVT pptx, Lovenox reason for continued hospitalization: awaiting snf bed Quality Stroke Does the patient have a stroke diagnosis?: No VTE Prior VTE?: No VTE Risk Level:: Medical - moderate - high VTE Device Contraindication: Treatment Not Indicated VTE Drug Contraindication: N/A - Med Ordered
[2024-02-06 11:36] LABS: Glucose, Whole Blood 194 mg/dL (60-115)
--- NOTE | 2024-02-06 11:58 | MHC.CM.PN ---
CM reached out to [facility] via [facility] x3 today, asking for clarification as to what they need prior to Patient going to their facility but no response as of yet. Millan indicated in [employer] regarding possible dc today, NO NOT WITHOUT APPROVAL from elder services. Previous CM indicates the PASARR was completed and this CM is asking if we are waiting for the approval from [facility] regarding the MDS. CM awaits clarification. aware.
[2024-02-06] MEDS: Insulin Lispro 100 UNIT/ML 3 ML VIAL SUBCUT ×3 (12:35→21:19)
[2024-02-06] MEDS: Cosyntropin 0.25 MG VIAL IVPUSH (14:37)
[2024-02-06 16:12] LABS: Glucose, Whole Blood 237 mg/dL (60-115)
[2024-02-06 19:09] LABS: Cortisol Random 21.7 ug/dL
[2024-02-06] MEDS: traZODone HCL 100 MG TABLET 200 MG PO (19:43)
[2024-02-06] MEDS: Atorvastatin Calcium 20 MG TABLET PO (19:43)
[2024-02-06 20:43] LABS: Glucose, Whole Blood 286 mg/dL (60-115)
[2024-02-06] MEDS: Insulin Glargine,Hum.rec.anlog 100 UNIT/ML 10 ML VIAL 37 UNIT SUBCUT (21:19)
[2024-02-07] VITALS (11 sets, daily range): BP systolic 93–140; BP diastolic 56–77; PULSE 84–100; RESP 18–20; TEMP 36.8–37.1; O2SAT 97–100
[2024-02-07 07:53] LABS: Glucose, Whole Blood 208 mg/dL (60-115)
[2024-02-07] MEDS: Enoxaparin Sodium 40 MG/0.4 ML SYRINGE SUBCUT (08:13)
[2024-02-07] MEDS: HaloperidoL 5 MG TABLET 10 MG PO ×2 (08:13→21:03)
[2024-02-07] MEDS: Sertraline HCL 50 MG TABLET PO (08:13)
[2024-02-07] MEDS: buPROPion HCl XL 150 MG TAB.ER.24H PO ×2 (08:13→21:03)
[2024-02-07] MEDS: Gabapentin 400 MG CAPSULE 800 MG PO ×3 (08:13→21:03)
[2024-02-07] MEDS: Midodrine HCl 2.5 MG TABLET PO ×3 (08:13→21:03)
[2024-02-07] MEDS: 0.9 % Sodium Chloride Flush 3 ML SYRINGE IVFLUSH (08:14)
[2024-02-07] MEDS: Insulin Lispro 100 UNIT/ML 3 ML VIAL SUBCUT ×4 (08:14→21:04)
--- NOTE | 2024-02-07 09:28 | HO.PM.IMPN ---
Subjective Subjective Date of Service: 02/07/24 Interval History: overall feeling better, still with relative hypotension Physical Exam Vital Signs: Vital Signs: Last Vital Signs Temp 98.3 F 02/07/24 07:32 Pulse 88 02/07/24 08:10 Resp 18 02/07/24 07:32 BP 93/61 02/07/24 08:10 Pulse Ox 98 02/07/24 07:32 O2 Del Method Room Air 02/07/24 07:32 BMI result Body Mass Index 25.2 General: AO X 3, no acute distress Resp: CTA bilateral, no accessory muscles used CVS: S1,S2,RRR GI: soft, non tender, non distended Neuro: motor grossly intact, alert Psych: appropriate affect, appropriate insight Objective Data Active Medications Acetaminophen (Acetaminophen 325 Mg Tablet) 650 mg PO Q6H PRN PRN Reason: Pain, Mild (Pain Scale 1-3) Atorvastatin Calcium (Atorvastatin Calcium 20 Mg Tablet) 20 mg PO BEDTIME [facility] Last Admin: 02/06/24 19:43 Dose: 20 mg Documented By: ZENA Bupropion HCl (Bupropion Hcl Xl 150 Mg Tab.Er.24h) 150 mg PO BID [facility] Last Admin: 02/07/24 08:13 Dose: 150 mg Documented By: JULIANNE Docusate Sodium (Docusate Sodium 100 Mg Capsule) 100 mg PO BID PRN PRN Reason: Constipation Enoxaparin Sodium (Enoxaparin Sodium 40 Mg/0.4 Ml Syringe) 40 mg SUBCUT Q24H [facility] Last Admin: 02/07/24 08:13 Dose: 40 mg Documented By: JULIANNE Famotidine (Famotidine 20 Mg Tablet) 20 mg PO DAILY [facility] Last Admin: 02/07/24 08:20 Dose: Not Given Documented By: JULIANNE Non-Admin Reason: Patient Refused Gabapentin (Gabapentin 400 Mg Capsule) 800 mg PO TID [facility] Last Admin: 02/07/24 08:13 Dose: 800 mg Documented By: JULIANNE Haloperidol (Haloperidol 5 Mg Tablet) 10 mg PO BID [facility] Last Admin: 02/07/24 08:13 Dose: 10 mg Documented By: UJLIANNE Hydroxyzine HCl (Hydroxyzine Hcl 50 Mg Tablet) 50 mg PO TID PRN PRN Reason: Anxiety Insulin Glargine (Insulin Glargine,Hum.Rec.Anlog 100 Unit/Ml 10 Ml Vial) 37 unit SUBCUT BEDTIME [facility] Last Admin: 02/06/24 21:19 Dose: 37 unit Documented By: ZENA Insulin Human Lispro (Insulin Lispro 100 Unit/Ml 3 Ml Vial) 0 unit SUBCUT QIDACHS [facility]; Protocol Last Admin: 02/07/24 08:14 Dose: 4 unit Documented By: JULIANNE Midodrine (Midodrine Hcl 2.5 Mg Tablet) 2.5 mg PO TID [facility] Last Admin: 02/07/24 08:13 Dose: 2.5 mg Documented By: JULIANNE Nicotine Polacrilex (Nicotine Polacrilex 2 Mg Gum) 2 mg BUCCAL Q2H PRN PRN Reason: Smoking Cessation Sertraline HCl (Sertraline Hcl 50 Mg Tablet) 50 mg PO DAILY [facility] Last Admin: 02/07/24 08:13 Dose: 50 mg Documented By: JULIANNE Sodium Chloride (0.9 % Sodium Chloride Flush 3 Ml Syringe) 3 ml IVFLUSH QSHIFT [facility] Last Admin: 02/07/24 08:14 Dose: 3 ml Documented By: JULIANNE Trazodone HCl (Trazodone Hcl 100 Mg Tablet) 200 mg PO BEDTIME [facility] Last Admin: 02/06/24 19:43 Dose: 200 mg Documented By: ZENA Labs 02/02/24 01:09 02/03/24 06:31 Labs: Laboratory Results - last 24 hr 02/06/24 02/06/24 02/06/24 06:24 10:25 11:21 POC Glucose 194 H Random Cortisol Cortisol Baseline Cortisol 30 Minute Cortisol 60 Minute Cortisol Sample 2 ACTH Resp to Cosyntrop Cortisol Enrrique Time 1 Cortisol Enrrique Time 2 Cortisol Enrrique Time 3 ACTH Cancelled ACTH Comment Hold Red Top See Note Hold Green Top 02/06/24 02/06/24 02/06/24 14:14 15:30 16:03 POC Glucose 237 H Random Cortisol 2.9 18.0 Cortisol Baseline Cancelled Cortisol 30 Minute Cancelled Cortisol 60 Minute Cancelled Cortisol Sample 2 Cancelled ACTH Resp to Cosyntrop Cancelled Cortisol Enrrique Time 1 Cancelled Cortisol Enrrique Time 2 Cancelled Cortisol Enrrique Time 3 Cancelled ACTH ACTH Comment Cancelled Hold Red Top Hold Green Top 0302/06/24 02/07/24 16:25 20:14 07:35 POC Glucose 286 H 208 H Random Cortisol 21.7 Cortisol Baseline Cortisol 30 Minute Cortisol 60 Minute Cortisol Sample 2 ACTH Resp to Cosyntrop Cortisol Enrrique Time 1 Cortisol Enrrique Time 2 Cortisol Enrrique Time 3 ACTH ACTH Comment Hold Red Top Hold Green Top See Note Assessment and Plan (1) Acute kidney failure: Status: Acute Plan 48M with hfpeF, DM, Mood d/o, HLD who presented after fall/near syncope likely related to orthostasis Orthostatic syncope improved, asymptomatic today continue midodrine possible adrenal insufficiency am cortisol - 3.9 acth stimulation test negative - ?central Adrenal insufficiency, check ACTH tomorrow, then will empirically start hydrocortisone, outpatient endocrine eval CIARRA resolved DM sliding scale + long acting Mood haldol, buproprion, zoloft, trazodone seen by care team - no need for inpatient at this time, low risk for self harm HFpEF holding diuretics Full Code DVT pptx, Lovenox reason for continued hospitalization: awaiting [facility] bed Quality Stroke Does the patient have a stroke diagnosis?: No VTE Prior VTE?: No VTE Risk Level:: Medical - moderate - high VTE Device Contraindication: Treatment Not Indicated VTE Drug Contraindication: N/A - Med Ordered
[2024-02-07 11:10] LABS: Glucose, Whole Blood 299 mg/dL (60-115)
[2024-02-07 16:13] LABS: Glucose, Whole Blood 221 mg/dL (60-115)
[2024-02-07] MEDS: Insulin Glargine,Hum.rec.anlog 100 UNIT/ML 10 ML VIAL 37 UNIT SUBCUT (21:03)
[2024-02-07] MEDS: traZODone HCL 100 MG TABLET 200 MG PO (21:03)
[2024-02-07] MEDS: Atorvastatin Calcium 20 MG TABLET PO (21:03)
[2024-02-07 21:32] LABS: Glucose, Whole Blood 164 mg/dL (60-115)
[2024-02-08] VITALS (16 sets, daily range): BP systolic 70–136; BP diastolic 42–75; PULSE 76–96; RESP 18–20; TEMP 36.7–37.2; O2SAT 95–99
[2024-02-08] MEDS: buPROPion HCl XL 150 MG TAB.ER.24H PO ×2 (08:35→20:07)
[2024-02-08] MEDS: Famotidine 20 MG TABLET PO (08:35)
[2024-02-08] MEDS: Hydrocortisone 10 MG TABLET PO ×3 (08:35→20:07)
[2024-02-08] MEDS: Sertraline HCL 50 MG TABLET PO (08:35)
[2024-02-08] MEDS: Gabapentin 400 MG CAPSULE 800 MG PO ×3 (08:35→20:06)
[2024-02-08] MEDS: HaloperidoL 5 MG TABLET 10 MG PO ×2 (08:35→20:07)
[2024-02-08] MEDS: 0.9 % Sodium Chloride Flush 3 ML SYRINGE IVFLUSH (08:36)
[2024-02-08] MEDS: Enoxaparin Sodium 40 MG/0.4 ML SYRINGE SUBCUT (08:36)
[2024-02-08 08:39] LABS: Glucose, Whole Blood 134 mg/dL (60-115)
--- NOTE | 2024-02-08 09:25 | HO.PM.IMPN ---
Subjective Subjective Date of Service: 02/08/24 Interval History: mild symptoms with orthostasis Physical Exam Vital Signs: Vital Signs: Last Vital Signs Temp 98.6 F 02/08/24 08:00 Pulse 80 02/08/24 08:10 Resp 20 02/08/24 08:00 BP 70/42 L 02/08/24 08:10 Pulse Ox 95 02/08/24 08:00 O2 Del Method Room Air 02/08/24 08:00 BMI result Body Mass Index 25.2 General: AO X 3, no acute distress Resp: CTA bilateral, no accessory muscles used CVS: S1,S2,RRR GI: soft, non tender, non distended Neuro: motor grossly intact, alert Psych: appropriate affect, appropriate insight Objective Data Active Medications Acetaminophen (Acetaminophen 325 Mg Tablet) 650 mg PO Q6H PRN PRN Reason: Pain, Mild (Pain Scale 1-3) Atorvastatin Calcium (Atorvastatin Calcium 20 Mg Tablet) 20 mg PO BEDTIME [facility] Last Admin: 02/07/24 21:03 Dose: 20 mg Documented By: MO Bupropion HCl (Bupropion Hcl Xl 150 Mg Tab.Er.24h) 150 mg PO BID [facility] Last Admin: 02/08/24 08:35 Dose: 150 mg Documented By: MEENA Docusate Sodium (Docusate Sodium 100 Mg Capsule) 100 mg PO BID PRN PRN Reason: Constipation Enoxaparin Sodium (Enoxaparin Sodium 40 Mg/0.4 Ml Syringe) 40 mg SUBCUT Q24H [facility] Last Admin: 02/08/24 08:36 Dose: 40 mg Documented By: MEENA Famotidine (Famotidine 20 Mg Tablet) 20 mg PO DAILY [facility] Last Admin: 02/08/24 08:35 Dose: 20 mg Documented By: MEENA Gabapentin (Gabapentin 400 Mg Capsule) 800 mg PO TID [facility] Last Admin: 02/08/24 08:35 Dose: 800 mg Documented By: MEENA Haloperidol (Haloperidol 5 Mg Tablet) 10 mg PO BID [facility] Last Admin: 02/08/24 08:35 Dose: 10 mg Documented By: MEENA Hydrocortisone (Hydrocortisone 10 Mg Tablet) 10 mg PO TID [facility] Last Admin: 02/08/24 08:35 Dose: 10 mg Documented By: MEENA Hydroxyzine HCl (Hydroxyzine Hcl 50 Mg Tablet) 50 mg PO TID PRN PRN Reason: Anxiety Insulin Glargine (Insulin Glargine,Hum.Rec.Anlog 100 Unit/Ml 10 Ml Vial) 37 unit SUBCUT BEDTIME [facility] Last Admin: 02/07/24 21:03 Dose: 37 unit Documented By: MO Insulin Human Lispro (Insulin Lispro 100 Unit/Ml 3 Ml Vial) 0 unit SUBCUT QIDACHS [facility]; Protocol Last Admin: 02/08/24 08:37 Dose: Not Given Documented By: MEENA Non-Admin Reason: No Insulin Coverage Nicotine Polacrilex (Nicotine Polacrilex 2 Mg Gum) 2 mg BUCCAL Q2H PRN PRN Reason: Smoking Cessation Sertraline HCl (Sertraline Hcl 50 Mg Tablet) 50 mg PO DAILY [facility] Last Admin: 02/08/24 08:35 Dose: 50 mg Documented By: MEENA Sodium Chloride (0.9 % Sodium Chloride Flush 3 Ml Syringe) 3 ml IVFLUSH QSHIFT [facility] Last Admin: 02/08/24 08:36 Dose: 3 ml Documented By: MEENA Trazodone HCl (Trazodone Hcl 100 Mg Tablet) 200 mg PO BEDTIME [facility] Last Admin: 02/07/24 21:03 Dose: 200 mg Documented By: MO Labs 02/02/24 01:09 02/03/24 06:31 Labs: Laboratory Results - last 24 hr 02/07/24 02/07/24 02/07/24 11:07 16:09 19:26 Hold Purple Top POC Glucose 299 H 221 H 164 H 02/08/24 02/08/24 06:04 08:00 Hold Purple Top SEE NOTE POC Glucose 134 H Assessment and Plan (1) Acute kidney failure: Status: Acute Plan 48M with hfpeF, DM, Mood d/o, HLD who presented after fall/near syncope likely related to orthostasis Orthostatic syncope still orthostatic possible adrenal insufficiency am cortisol - 3.9 acth stimulation test negative - ?central Adrenal insufficiency, follow up ACTH level started hydrocortisone, will stop midodrine outpatient endocrine eval CIARRA resolved DM sliding scale + long acting Mood haldol, buproprion, zoloft, trazodone seen by care team - no need for inpatient at this time, low risk for self harm HFpEF holding diuretics Full Code DVT pptx, Lovenox reason for continued hospitalization: orthostatic Quality Stroke Does the patient have a stroke diagnosis?: No VTE Prior VTE?: No VTE Risk Level:: Medical - moderate - high VTE Device Contraindication: Treatment Not Indicated VTE Drug Contraindication: N/A - Med Ordered
--- NOTE | 2024-02-08 10:21 | MHC.CM.PN ---
Per MD rounds no dc today. Medication changes have been made for low BP. Yana Jade has been sent a clinical update. Approval from [facility] services is pending. The SNF is aware that the patient is not ready to discharge today.
[2024-02-08 11:49] LABS: Glucose, Whole Blood 241 mg/dL (60-115)
[2024-02-08] MEDS: Insulin Lispro 100 UNIT/ML 3 ML VIAL SUBCUT ×3 (12:40→20:07)
[2024-02-08 15:48] LABS: Glucose, Whole Blood 267 mg/dL (60-115)
[2024-02-08 19:30] LABS: Glucose, Whole Blood 174 mg/dL (60-115)
[2024-02-08] MEDS: Insulin Glargine,Hum.rec.anlog 100 UNIT/ML 10 ML VIAL 37 UNIT SUBCUT (20:07)
[2024-02-08] MEDS: traZODone HCL 100 MG TABLET PO (20:07)
[2024-02-08] MEDS: Atorvastatin Calcium 20 MG TABLET PO (20:07)
[2024-02-09] VITALS (8 sets, daily range): BP systolic 85–151; BP diastolic 56–78; PULSE 87–99; RESP 17–20; TEMP 36.2–36.8; O2SAT 97–100
[2024-02-09 07:31] LABS: Glucose, Whole Blood 136 mg/dL (60-115)
[2024-02-09] MEDS: buPROPion HCl XL 150 MG TAB.ER.24H PO (07:57)
[2024-02-09] MEDS: Hydrocortisone 10 MG TABLET PO ×2 (07:57→16:10)
[2024-02-09] MEDS: Gabapentin 400 MG CAPSULE 800 MG PO ×2 (07:57→16:10)
[2024-02-09] MEDS: Sertraline HCL 50 MG TABLET PO (07:57)
[2024-02-09] MEDS: HaloperidoL 5 MG TABLET 10 MG PO (07:57)
[2024-02-09 07:59] LABS: Cortisol Random 2.9 ug/dL
[2024-02-09] MEDS: Enoxaparin Sodium 40 MG/0.4 ML SYRINGE SUBCUT (08:00)
[2024-02-09 11:20] LABS: Glucose, Whole Blood 191 mg/dL (60-115)
[2024-02-09] MEDS: Insulin Lispro 100 UNIT/ML 3 ML VIAL SUBCUT ×2 (12:25→16:30)
--- NOTE | 2024-02-09 13:47 | P.PNIM_ITS ---
Subjective Subjective Date of Service: 02/09/24 Interval History: mild symptoms with orthostasis Physical Exam 2 Vital Signs: Vital Signs: Last Vital Signs Temp 97.1 F 02/09/24 11:13 Pulse 99 02/09/24 11:13 Resp 18 02/09/24 11:13 BP 122/72 02/09/24 11:13 Pulse Ox 97 02/09/24 11:13 O2 Del Method Room Air 02/09/24 11:13 BMI result Body Mass Index 25.2 General: AO X 3, no acute distress Resp: CTA bilateral, no accessory muscles used CVS: S1,S2,RRR GI: soft, non tender, non distended Neuro: motor grossly intact, alert Psych: appropriate affect, appropriate insight Objective Data Active Medications Acetaminophen (Acetaminophen 325 Mg Tablet) 650 mg PO Q6H PRN PRN Reason: Pain, Mild (Pain Scale 1-3) Atorvastatin Calcium (Atorvastatin Calcium 20 Mg Tablet) 20 mg PO BEDTIME [facility] Last Admin: 02/08/24 20:07 Dose: 20 mg Documented By: ZENA Bupropion HCl (Bupropion Hcl Xl 150 Mg Tab.Er.24h) 150 mg PO BID [facility] Last Admin: 02/09/24 07:57 Dose: 150 mg Documented By: MEENA Docusate Sodium (Docusate Sodium 100 Mg Capsule) 100 mg PO BID PRN PRN Reason: Constipation Enoxaparin Sodium (Enoxaparin Sodium 40 Mg/0.4 Ml Syringe) 40 mg SUBCUT Q24H [facility] Last Admin: 02/09/24 08:00 Dose: 40 mg Documented By: MEENA Famotidine (Famotidine 20 Mg Tablet) 20 mg PO DAILY [facility] Last Admin: 02/09/24 08:00 Dose: Not Given Documented By: MEENA Non-Admin Reason: Patient Refused Gabapentin (Gabapentin 400 Mg Capsule) 800 mg PO TID [facility] Last Admin: 02/09/24 07:57 Dose: 800 mg Documented By: MEENA Haloperidol (Haloperidol 5 Mg Tablet) 10 mg PO BID [facility] Last Admin: 02/09/24 07:57 Dose: 10 mg Documented By: MEENA Hydrocortisone (Hydrocortisone 10 Mg Tablet) 10 mg PO TID [facility] Last Admin: 02/09/24 07:57 Dose: 10 mg Documented By: MEENA Hydroxyzine HCl (Hydroxyzine Hcl 50 Mg Tablet) 50 mg PO TID PRN PRN Reason: Anxiety Insulin Glargine (Insulin Glargine,Hum.Rec.Anlog 100 Unit/Ml 10 Ml Vial) 37 unit SUBCUT BEDTIME [facility] Last Admin: 02/08/24 20:07 Dose: 37 unit Documented By: ZENA Insulin Human Lispro (Insulin Lispro 100 Unit/Ml 3 Ml Vial) 0 unit SUBCUT QIDACHS [facility]; Protocol Last Admin: 02/09/24 12:25 Dose: 2 unit Documented By: MEENA Nicotine Polacrilex (Nicotine Polacrilex 2 Mg Gum) 2 mg BUCCAL Q2H PRN PRN Reason: Smoking Cessation Sertraline HCl (Sertraline Hcl 50 Mg Tablet) 50 mg PO DAILY [facility] Last Admin: 02/09/24 07:57 Dose: 50 mg Documented By: MEENA Sodium Chloride (0.9 % Sodium Chloride Flush 3 Ml Syringe) 3 ml IVFLUSH QSHIFT [facility] Last Admin: 02/09/24 08:00 Dose: Not Given Documented By: MEENA Non-Admin Reason: No Access Trazodone HCl (Trazodone Hcl 50 Mg Tablet) 50 mg PO BEDTIME [facility] Labs 02/02/24 01:09 02/03/24 06:31 Labs: Laboratory Results - last 24 hr 02/06/24 02/08/24 02/08/24 14:14 15:39 19:26 POC Glucose 267 H 174 H Random Cortisol 2.9 02/09/24 02/09/24 07:24 11:15 POC Glucose 136 H 191 H Random Cortisol Assessment and Plan (1) Acute kidney failure: Status: Acute Plan 48M with hfpeF, DM, Mood d/o, HLD who presented after fall/near syncope likely related to orthostasis Orthostatic syncope still mildly orthostatic possible central adrenal insufficiency am cortisol - 3.9 acth stimulation test negative - ?central Adrenal insufficiency, follow up ACTH level started hydrocortisone outpatient endocrine eval CIARRA resolved DM sliding scale + long acting Mood haldol, buproprion, zoloft, trazodone seen by care team - no need for inpatient at this time, low risk for self harm HFpEF holding diuretics Full Code DVT pptx, Lovenox reason for continued hospitalization: awaiting bed Quality Stroke Does the patient have a stroke diagnosis?: No VTE Prior VTE?: No VTE Risk Level:: Medical - moderate - high VTE Device Contraindication: Treatment Not Indicated VTE Drug Contraindication: N/A - Med Ordered
--- NOTE | 2024-02-09 14:11 | MHC.CM.PN ---
Addendum entered by Kathleen Moise 02/09/24 16:21: A call was received from [facility]. Csatro informed this keno writer/runner that 2 additional documents are required. The DC Summary with < 30 days and the Short term LOC document were faxed to [facility] attn Castro. Original Note: Patient is discharged to [facility] for [facility]. DC Summary and Packet sent to STR. Patient will transport via BLS @ 4:30pm today. MDS and PASRR sent to [facility].
[2024-02-09 16:09] LABS: Glucose, Whole Blood 260 mg/dL (60-115)
--- NOTE | 2024-02-09 17:56 | PC.NURSE ---
Pt d/c to [facility] at ~[phone]. Report called to RN there at [phone]. All paperwork sent to ambulance personnel
--- NOTE | 2024-02-11 08:55 | PM.EVENT ---
Event Note Date of Service: 02/11/24 Event Note: discussed with enodcrinology, dr pride, reviewed chart and history, does not feel patient has central AI, recommends discontinuing hydrocortisone and no need for follow up unless further signs or symptoms. called nidhi barlow and updated recommendations. Time Spent With Patient Time: Total time managing care of this patient today ____ minutes.
[2024-02-13 05:03] LABS: Adrenocorticotropic Hormone 29 pg/mL (6-50)
== END 2024-02-09 18:00 | disposition skilled nursing facility (03) | DRG 751 ==
LOC: HO.ED 07:23 → HO.EDOVER 08:22 → HO.IMC 02-03 07:07
PROVIDERS: Admitting Provider Family Medicine; Emergency Provider Internal Medicine; Visit Provider Internal Medicine
DX: F32.3 Major depressive disorder, single episode, severe with psychotic features (principal); N17.9 Acute kidney failure, unspecified; I95.1 Orthostatic hypotension; I50.32 Chronic diastolic (congestive) heart failure; E11.9 Type 2 diabetes mellitus without complications; F17.210 Nicotine dependence, cigarettes, uncomplicated; Z71.6 Tobacco abuse counseling; Z79.4 Long term (current) use of insulin; Z79.899 Other long term (current) drug therapy
CPT/HCPCS: 36415; 70450; 80048; 80053; 82024; 82533; 82947; 83735; 84484; 85025; 93005; 97162; 97530; 99285; J0834; J1650; S9485

== ENCOUNTER → 2024-02-02 00:54 | Outpatient (BNV) | payer MEDICAID, SELFPAY | PROVIDERS: Admitting Provider Family Medicine; Emergency Provider Internal Medicine; Visit Provider Internal Medicine Cardiovascular Disease | DX: R42 Dizziness and giddiness (principal) | CPT/HCPCS: 93010 ==

== ENCOUNTER → 2024-02-02 08:17 | Outpatient (BNV) | payer MEDICAID, SELFPAY | PROVIDERS: Admitting Provider Family Medicine; Emergency Provider Internal Medicine; Visit Provider Family Medicine | DX: N17.9 Acute kidney failure, unspecified (principal) | CPT/HCPCS: 99223; 99232; 99233; 99239; 99499 ==